=== PATIENT | female | born 1945 | race Caucasian/White ===

== ENCOUNTER 2018-06-11 08:48 | Inpatient (IN) ==
--- NOTE | 2018-06-11 09:20 | PROVIDER DOCUMENTATION ---
HPI-Respiratory General - General Chief Complaint: Shortness of Breath Stated Complaint: sob Time Seen by Provider: 06/11/18 09:05 Source: patient, family Allergies/Adverse Reactions: Patient Allergies Allergy/AdvReac Type Severity Reaction Status Date / Time cefazolin Allergy Intermediate RASH Verified 10/22/17 12:07 metoclopramide HCl * Allergy Intermediate RASH Verified 10/22/17 12:07 [From Reglan] streptomycin [Streptomycin] Allergy Intermediate RASH Verified 10/22/17 12:07 Sulfa (Sulfonamide Allergy Intermediate RASH Verified 10/22/17 12:07 Antibiotics) tetracycline [Tetracycline] Allergy Intermediate RASH Verified 10/22/17 12:07 Home Medications: Home Medication List Medication Instructions Recorded Confirmed Last Taken Type Omeprazole 20 mg PO HS 05/13/13 06/11/18 10/21/17 History Gabapentin 300 mg PO TID 02/10/17 06/11/18 10/22/17 History Losartan [Cozaar] 50 mg PO QHS 02/10/17 06/11/18 10/21/17 History Warfarin [Coumadin] 5 mg PO QHS 02/10/17 06/11/18 10/21/17 History Duloxetine [Cymbalta] 60 mg PO DAILY 03/07/17 06/11/18 10/22/17 History Levothyroxine [Synthroid] 50 microgm PO DAILY 06/21/17 06/11/18 10/22/17 History Vitamin B Complex Vit C No.4 150 mg PO DAILY 06/21/17 06/11/18 10/22/17 History [Super B Complex] Calcium Carbonate/Vitamin D3 1 tab PO DAILY 06/28/17 06/11/18 10/22/17 History [Calcium 600-Vit D3 800 Tablet] Metolazone 2.5 mg PO DIRECTED 06/28/17 06/11/18 10/19/17 History Potassium Chloride [Klor-Con M20] 20 meq PO TID 06/28/17 06/11/18 10/22/17 History B-Complex with Vitamin C [Super B 1 tab PO DAILY 06/30/17 11/13/17 10/22/17 History Complex-Vitamin C] Baclofen [Lioresal] 10 mg PO Q12H PRN PRN tablet 06/30/17 06/11/18 10/22/17 Rx Furosemide 80 mg PO BID 06/30/17 06/11/18 10/22/17 History Isosorbide Mononitrate E.r. [Imdur] 30 mg PO BID #60 tab 06/30/17 06/11/18 10/22/17 Rx Hydrocodone/Acetaminophen 1 tab PO Q6H 06/11/18 06/11/18 Unknown History [Hydrocodone-Acetamin 10-325 mg] Metoprolol Succinate 25 mg PO DAILY 06/11/18 06/11/18 Unknown History Prednisone 5 mg PO DAILY 06/11/18 06/11/18 Unknown History Trazodone [Desyrel] 150 mg PO QHS 06/11/18 06/11/18 Unknown History - History of Present Illness-Resp Quality of Pain: reports: cramping Severity in ED: reports: severe Onset/Duration: reports: 4-6 hours ago Timing: reports: still present Context: denies: recent foreign travel, insect bite (possible tick), recent chemotherapy, multiple patients with similar complaints, recent URI, out of meds, sports/exercise, aspiration/choking, other Exposure: denies: unknown cause, allergen exposure, enviromental allergen exposure, common food allergen exposure, illness exposure, irritant gases exposure, new medication, mold exposure, smoke exposure, toxic exposure, other Cough Quality/Degree: reports: moderate, productive cough, sputum, blood streaked sputum Episode Frequency: no prior episodes Current Respiratory Medication Therapy: Initiated other (home oxygen) Modifying Factors: improves with: nothing Associated Symptoms: reports: cough Similar Symptoms Previously?: No Recently seen or treated by another doctor?: Yes (recent INR, NA 119) Review of Systems - Adult - REVIEW OF SYSTEMS - ADULT Constitutional: reports: see HPI. denies: no symptoms reported, chills, fever, fatique, night sweats, weight gain, weight loss, other Eyes: reports: no symptoms reported Ears, Nose, Mouth & Throat: reports: no symptoms reported Cardiovascular: reports: no symptoms reported Respiratory: reports: cough, hemoptysis, shortness of breath Gastrointestinal: reports: no symptoms reported Genitourinary: reports: no symptoms reported Musculoskeletal: reports: no symptoms reported, other (cramping) Integumentary: reports: no symptoms reported Neurological: reports: no symptoms reported Psychiatric: reports: no symptoms reported Endocrine: reports: no symptoms reported Hematologic/Lymphatic: reports: no symptoms reported Allergic/Immunologic: reports: no symptoms reported Past History - Adult - PAST MEDICAL HISTORY-ADULT Review of Records: reports: Nursing Assessment Review Major Childhood Illnesses: reports: denies history Cardiovascular: reports: HTN, heart valve problem, [place] Respiratory: reports: denies history Gastrointestinal: reports: denies history Obstetrical/Gynecological: reports: denies history Genitourinary: reports: denies history Musculoskeletal: reports: chronic pain Neurological: reports: denies history Psychiatric: reports: denies history Endocrine/Immune: reports: thyroid disorder Other Conditions: reports: denies history - PRIOR SURGERIES/PROCEDURES Surgical/Procedure History: reports: CABG, other - IMMUNIZATION STATUS Childhood Immunizations: See Nurse Assessment Flu Vaccine: See Nurse Assessment - FAMILY HISTORY Family History: reviewed, not pertinent Physical Exam-General - PHYSICAL EXAM-ADULT Initial Vital Signs Reviewed: Yes - CONSTITUTIONAL General Appearance: no apparent distress - EYES Eyes: PERRL/EOMI, pink conjunctivae - HEAD, EARS, NOSE, MOUTH & THROAT HENMT: normocephalic/atraumatic, moist mucous membranes - NECK Neck: non-tender - RESPIRATORY Respiratory: crackles, increased rate - CARDIOVASCULAR Cardiovascular: normal peripheral pulses, no edema - GASTROINTESTINAL (ABDOMEN) Abdominal Exam: normal bowel sounds, non tender - LYMPHATIC Lymphatic: no adenopathy - MUSCULOSKELETAL Back Exam: normal inspection Extremity: other (cramping BLE) - SKIN Integumentary: normal color, normal turgor - NEUROLOGIC Neurologic: grossly normal - PSYCHIATRIC Psych/Mental Status: normal mood/affect, normal thought content, normal thought process, oriented x 3 Progress - PLAN OF CARE/RESULTS Progress/Plan/Lab Results: Vital Signs - 8 hr 06/11/18 08:55 06/11/18 09:00 06/11/18 09:50 Temperature 98.6 F Pulse Rate 117 H 116 H 102 H Respiratory Rate 41 H 30 H 20 Blood Pressure 130/67 130/67 O2 Sat by Pulse Oximetry 97 97 98 06/11/18 10:43 06/11/18 11:01 06/11/18 11:21 Temperature Pulse Rate 101 H 97 H 107 H Respiratory Rate 29 H 15 37 H Blood Pressure 141/72 140/65 143/66 O2 Sat by Pulse Oximetry 99 99 98 06/11/18 11:32 Temperature Pulse Rate 107 H Respiratory Rate 15 Blood Pressure 123/78 O2 Sat by Pulse Oximetry 98 Laboratory Results - last 24 hr 06/11/18 06/11/18 06/11/18 09:15 09:28 09:28 WBC 21.95 H RBC 4.43 Hgb 12.2 Hct 37.6 MCV 84.9 MCH 27.5 MCHC 32.4 L RDW Std Deviation 14.9 H Plt Count 330 MPV 8.8 Immature Gran % (Auto) 0.4 Neut % (Auto) 94.2 H Lymph % (Auto) 1.5 L [place] % (Auto) 3.8 Eos % (Auto) 0.0 Baso % (Auto) 0.1 Immature Gran # (Auto) 0.08 H Neut # (Auto) 20.67 H Lymph # (Auto) 0.34 L [place] # (Auto) 0.84 H Eos # (Auto) 0.00 Baso # (Auto) 0.02 PT INR PTT (Actin FS) Sodium 132 L Potassium 3.7 Chloride 86 L Carbon Dioxide 31 Anion Gap 15 BUN 10 Creatinine 0.7 Estimated GFR/1.73 m2 > 60 BUN/Creatinine Ratio 14 Glucose 113 H Calculated Osmolality 264 Calcium 9.6 Total Bilirubin 0.51 AST 61 H ALT 61 H Alkaline Phosphatase 94 Troponin T Wsd-B-Qgrkevgcwer Pept Total Protein 7.3 Albumin 4.6 Globulin 2.7 Albumin/Globulin Ratio 1.7 Plasma Lactate Urine Source CLEAN CATCH Urine Color STRAW Urine Turbidity CLEAR Urine pH 7.0 Ur Specific [place] 1.000 Urine Protein NEGATIVE Ur Glucose (Stick) NEGATIVE Ur Ketones (Stick) NEGATIVE Urine Blood NEGATIVE Urine Nitrite NEGATIVE Urine Bilirubin NEGATIVE Urobilinogen Dipstick NORMAL Urine Leukocytes NEGATIVE Urine WBC (Auto) <10 Urine RBC (Auto) <10 U Epithel Cells (Auto) <10 Urine Bacteria (Auto) 4+ 06/11/18 06/11/18 06/11/18 09:28 09:28 09:28 WBC RBC Hgb Hct MCV MCH MCHC RDW Std Deviation Plt Count MPV Immature Gran % (Auto) Neut % (Auto) Lymph % (Auto) [place] % (Auto) Eos % (Auto) Baso % (Auto) Immature Gran # (Auto) Neut # (Auto) Lymph # (Auto) [place] # (Auto) Eos # (Auto) Baso # (Auto) PT 26.9 H INR 2.29 PTT (Actin FS) 44.5 H Sodium Potassium Chloride Carbon Dioxide Anion Gap BUN Creatinine Estimated GFR/1.73 m2 BUN/Creatinine Ratio Glucose Calculated Osmolality Calcium Total Bilirubin AST ALT Alkaline Phosphatase Troponin T 0.030 Jrw-F-Fnawfgrcsym Pept 1565 H Total Protein Albumin Globulin Albumin/Globulin Ratio Plasma Lactate Urine Source Urine Color Urine Turbidity Urine pH Ur Specific [place] Urine Protein Ur Glucose (Stick) Ur Ketones (Stick) Urine Blood Urine Nitrite Urine Bilirubin Urobilinogen Dipstick Urine Leukocytes Urine WBC (Auto) Urine RBC (Auto) U Epithel Cells (Auto) Urine Bacteria (Auto) 06/11/18 09:28 WBC RBC Hgb Hct MCV MCH MCHC RDW Std Deviation Plt Count MPV Immature Gran % (Auto) Neut % (Auto) Lymph % (Auto) [place] % (Auto) Eos % (Auto) Baso % (Auto) Immature Gran # (Auto) Neut # (Auto) Lymph # (Auto) [place] # (Auto) Eos # (Auto) Baso # (Auto) PT INR PTT (Actin FS) Sodium Potassium Chloride Carbon Dioxide Anion Gap BUN Creatinine Estimated GFR/1.73 m2 BUN/Creatinine Ratio Glucose Calculated Osmolality Calcium Total Bilirubin AST ALT Alkaline Phosphatase Troponin T Fsg-F-Ntkziemgykw Pept Total Protein Albumin Globulin Albumin/Globulin Ratio Plasma Lactate 2.8 H Urine Source Urine Color Urine Turbidity Urine pH Ur Specific [place] Urine Protein Ur Glucose (Stick) Ur Ketones (Stick) Urine Blood Urine Nitrite Urine Bilirubin Urobilinogen Dipstick Urine Leukocytes Urine WBC (Auto) Urine RBC (Auto) U Epithel Cells (Auto) Urine Bacteria (Auto) Orders Category Date Time Status Admit - [facility] Routine AdmDCTranf 06/11/18 12:02 Active Activity - Up with Assistance ORDERED Care 06/11/18 12:02 Active Daily Weights 0500 Care 06/11/18 12:02 Active Elevate Head of Bed DIRECTED Care 06/11/18 12:02 Active Intake and Output-Strict Q 8-HR ASSESS Care 06/11/18 12:02 Active Nursing- Assist w/ IS as order ORDERED Care 06/11/18 12:02 Active Saline Loc NOW Care 06/11/18 09:22 Active Turn, Cough and Deep Breathe Q2HR Care 06/11/18 12:02 Active Vital Signs Order Q 4-HR ASSESS Care 06/11/18 11:55 Active Heart Healthy Diet Diet 06/11/18 12:02 Active CHEST-1 VIEW [RAD] Stat Exams 06/11/18 09:03 Completed CHEST-PORTABLE [RAD] Routine Exams 06/12/18 06:00 Ordered BLOOD CULTURE [BLDCUL] Stat Lab 06/11/18 10:40 Results BNP [PRO B-NATRIURETIC PEPTIDE] Stat Lab 06/11/18 09:28 Completed CBC WITH ELECTRONIC DIFF [HEME] Stat Lab 06/11/18 09:28 Completed COMPREHENSIVE METABOLIC PANEL [CHEM] Routine Lab 06/12/18 06:00 Ordered COMPREHENSIVE METABOLIC PANEL [CHEM] Stat Lab 06/11/18 09:28 Completed FREE T4 Routine Lab 06/12/18 06:00 Ordered LACTATE, PLASMA [CHEM] Routine Lab 06/11/18 16:00 Ordered LACTATE, PLASMA [CHEM] Stat Lab 06/11/18 09:28 Completed PROTIME WITH INR [COAG] Stat Lab 06/11/18 09:28 Completed PTT [COAG] Stat Lab 06/11/18 09:28 Completed SPUTUM CULTURE WITH GRAM STAIN [RM] Routine Lab 06/11/18 12:09 Results TROPONIN T Q8H Lab 06/11/18 14:16 Completed TROPONIN T Q8H Lab 06/11/18 19:55 Ordered TROPONIN T Stat Lab 06/11/18 09:28 Completed TSH Routine Lab 06/12/18 06:00 Ordered VITAMIN B12 Routine Lab 06/12/18 06:00 Ordered Furosemide [Lasix] Med 06/11/18 10:44 Discontinued 40 mg IV NOW ONE Levofloxacin 750 mg/D5w [Levaquin 750 mg/D5w] Med 06/11/18 10:12 Discontinued 750 mg in 150 ml IV NOW Pharmacy Order [Vancomycin IV Per Pharmacy] Med 06/11/18 11:55 Active 1 each MISC DIRECTED Piperacillin/Tazobactam [Zosyn] 3.375 gm Med 06/11/18 18:00 Active 0.9% Sodium Chloride Inj [Ns] 50 ml IV Q6H Incentive Spirometer Routine Oth 06/11/18 12:02 Active Oxygen Device Routine Oth 06/11/18 12:02 Active Pulse Oximetry Routine Oth 06/11/18 12:02 Active EKG [EKG] Stat Ther 06/11/18 09:35 Draft Echo Spec/Color Dop W/O Contra Routine Ther 06/11/18 11:20 Draft Transfer/Admit Order [TRANSFER] Routine Transfer 06/11/18 11:02 Completed Result Diagrams: 06/11/18 09:28 06/11/18 09:28 - REASSESSMENT Reassessment #1 Time Reassessed: 10:14 Status: improving Reassessment Comment: discussed admission with patient, PCP does not admit, will d/w hospitalist Reassessment #2 Time Reassessed: 10:34 (Hospitalist Paged) Reassessment #3 Time Reassessed: 10:48 Reassessment Comment: Spoke with Daniela [employer] with hospitalist, admit for PNA - XRAY 1 XRAY Study: Chest Impression: Abnormal XRAY Interpretation: Right lung infiltrates. Departure - Departure Date of Disposition Decision: 06/11/18 Time of Disposition Decision: 10:34 DIAGNOSIS: Pneumonia, Weakness, Hyponatremia Disposition: ADMITTED INPATIENT 09 Certified Medical Emergency: Emergent Condition: Fair - Critical Care Note This patient required my direct & personal management of CC.: No Attestation - Physician/ BROOK[place]NN Attestation The physician spent face to face time with patient:: No Advanced Practice Provider documentation review:: Supervising physician onsite a nd consulted in the evaluation and care of this patient. The physician did not have a face to face encounter with the patient.
--- NOTE | 2018-06-11 09:37 | EKG Report ---
Test Performed on : 06/11/2018 08:53:08 AM Test Reason : SOB Blood Pressure : / mmHG Vent. Rate : 113 BPM Atrial Rate : 113 BPM P-R Int : 164 ms QRS Dur : 112 ms QT Int : 344 ms P-R-T Axes : 046 029 116 degrees QTc Int : [address] & T wave abnormality, consider inferolateral ischemia Abnormal ECG When compared with ECG of 13-NOV-2017 19:41, Vent. rate has increased BY 47 BPM QRS duration has decreased T wave inversion more evident in Lateral leads Unconfirmed Result
--- NOTE | 2018-06-11 09:43 | Diag Imaging Result Doc PS360 ---
EXAM: CHEST-1 VIEW HISTORY: SOB TECHNIQUE: Chest single view COMPARISON: 11/16/2017 FINDINGS: The lungs are well expanded. There are dense infiltrates in the mid and lower right lung on the current exam. The patient is rotated to the right. Sternal wires are present. There is a small left pleural effusion. IMPRESSION: Right lung infiltrates. Electronically signed by Shahid Robertson 06/11/2018 9:40 AM
[2018-06-11 10:06] LABS: BASO# 0.02 X1000 (0.0-0.2); BASO% 0.1 % (0.0-0.8); HEMATOCRIT 37.6 % (37.0-47.0); HEMOGLOBIN 12.2 g/dL (12.0-16.0); IMM GRAN# 0.08 X1000 (0.0-0.04); IMM GRAN% 0.4 % (0.0-0.5); LYMPH# 0.34 X1000 (1.2-3.4); LYMPH% 1.5 % (20.5-51.1); MCH 27.5 PG (27-31); MCHC 32.4 g/dL (33-37); MCV 84.9 FL (81-99); MONO# 0.84 X1000 (0.11-0.59); MONO% 3.8 % (1.7-9.3); MPV 8.8 FL (7.4-10.4); NEUT# 20.67 X1000 (1.4-6.5); NEUT% 94.2 % (42.2-75.2); PLT 330 X1000 (130-400); RBC 4.43 XMIL (4.2-5.4); RDW 14.9 % (11.5-14.5); WBC 21.95 X1000 (4.8-10.8)
[2018-06-11 10:09] LABS: INR 2.29; PROTIME 26.9 Seconds (11.0-16.0)
[2018-06-11 10:10] LABS: PTT 44.5 Seconds (22.3-41.8)
[2018-06-11] MEDS ORDERED: LEVAQUIN 750 MG/D5W 750 MG/150 ML IVPB IV ONE (10:12)
[2018-06-11 10:24] LABS: ESTIMATED GFR > 60
[2018-06-11 10:25] LABS: AGAP 15; ALB/GLOB RATIO 1.7; ALBUMIN 4.6 g/dL (3.5-5.0); ALKALINE PHOSPHATASE 94 U/L (32-104); BUN 10 mg/dL (8-22); CALCIUM 9.6 mg/dL (8.8-10.2); CHLORIDE 86 mmol/L (98-107); COSMO 264; CREATININE 0.7 mg/dL (0.5-0.9); GLUCOSE 113 mg/dL (70-104); GOT 61 U/L (10-30); GPT 61 U/L (10-36); POTASSIUM 3.7 mmol/L (3.5-5.1); SODIUM 132 mmol/L (136-145); TCO2 31 mmol/L (25-35); TOTAL BILIRUBIN 0.51 mg/dL (0.20-1.00); TOTAL PROTEIN 7.3 g/dL (6.3-8.3)
[2018-06-11] MEDS ORDERED: LASIX IV ONE (10:44)
[2018-06-11] MEDS ORDERED: ZOFRAN IV PRN (11:55)
[2018-06-11] MEDS ORDERED: VANCOMYCIN IV PER PHARMACY MISC SCH (11:55)
[2018-06-11] MEDS ORDERED: NS 1,000 ML IV ONE (11:55)
[2018-06-11] MEDS ORDERED: SODIUM CHLORIDE 0.9% INJ SCH (12:02)
[2018-06-11 12:26] LABS: URINE SOURCE CLEAN CATCH
[2018-06-11 12:34] LABS: BILIRUBIN URINE NEGATIVE (NEGATIVE); BLOOD URINE NEGATIVE (NEGATIVE); COLOR STRAW; GLUCOSE URINE NEGATIVE (NEGATIVE); KETONE URINE NEGATIVE (NEGATIVE); LEUKOCYTES URINE NEGATIVE (NEGATIVE); NITRITE URINE NEGATIVE (NEGATIVE); PROTEIN URINE NEGATIVE (NEGATIVE); TURBIDITY URINE CLEAR (CLEAR); UR EPITHELIAL CELLS <10 /HPF (<10); URINE BACTERIA 4+ /HPF; URINE RBC <10 /HPF (<10); URINE WBC <10 /HPF (<10); UROBILINOGEN URINE NORMAL (NORMAL)
[2018-06-11] MEDS ORDERED: VANCOMYCIN 1,300 MG in NS 250 ML IV ONE (13:00)
--- NOTE | 2018-06-11 13:01 | HISTORY AND PHYSICAL ---
PATIENT'S PRIMARY CARE PHYSICIAN: Jose Amaya MD CHIEF COMPLAINT: Shortness of breath and cough with pink frothy sputum. HISTORY OF PRESENT ILLNESS: Ms. Mosley is a 72-year-old female with a past medical history of coronary artery disease with bypass graft, aortic and mitral valve replacements, hypertension, diastolic heart failure secondary to valvular abnormalities, and history of paroxysmal atrial fibrillation on Coumadin, who presented to the emergency room today with complaints of a new cough. She states that this morning she woke up and was coughing excessively and started coughing some pink frothy sputum as well as shortness of breath associated with this cough. She denied any fever and she denied previous illness. She has complained of some mild chest pain associated with this coughing episode that started this morning. She denies any abdominal pain, constipation, or diarrhea. She denies melena or hematochezia. She was brought in by ambulance to the [facility] ER this morning. While in the emergency room, a chest x-ray revealed right lung infiltrates. Her EKG was sinus rhythm. She had an elevated WBC at 21.95, hemoglobin and hematocrit are normal, and her lactate is elevated at 2.8. She also has an elevated proBNP 1565. She denies any recent weight gain or swelling of the extremities. She does complain of some paroxysmal nocturnal dyspnea that just started last night. She will be admitted for further workup and evaluation regarding right-sided pneumonia,likely aspiration, and diastolic congestive heart failure. PAST MEDICAL HISTORY: 1. Paroxysmal atrial fibrillation, on chronic anticoagulation with Coumadin. 2. Coronary artery disease status post coronary artery bypass graft. 3. History of aortic and mitral valve replacements in 1998. 4. Hypertension. 5. Chronic hypokalemia and hyponatremia. 6. History of pulmonary hypertension. 7. History of diastolic heart failure. 8. History of small-bowel obstruction. 9. History of GI bleed in June 2013. 10. Hypothyroidism. PAST SURGICAL HISTORY: 1. CABG with mitral and aortic valve replacement. 2. Hysterectomy. 3. Cholecystectomy. 4. Breast reconstruction. SOCIAL HISTORY: Ms. Mosley lives at home with her . She does her ADLs independently. She denies any alcohol, tobacco, or drug use. She quit smoking in 1974. FAMILY HISTORY: No significant family history to report. ALLERGIES: Cefazolin, Reglan, streptomycin, sulfa, tetracycline. HOME MEDICATIONS: 1. Lasix 80 mg p.o. b.i.d. 2. Omeprazole 20 mg p.o. at bedtime. 3. Prednisone 5 mg p.o. daily. 4. Baclofen 10 mg p.o. q.12 h. p.r.n. muscle spasms. 5. Cymbalta 60 mg p.o. daily. 6. Gabapentin 300 mg p.o. t.i.d. 7. Montara 325 one tablet p.o. q.6 h. p.r.n. pain. 8. Imdur 30 mg p.o. b.i.d. 9. Synthroid 50 mcg p.o. daily. 10. Cozaar 50 mg p.o. at bedtime. 11. Potassium chloride 20 mEq p.o. t.i.d. 12. Trazodone 150 mg p.o. at bedtime. 13. Coumadin 5 mg p.o. at bedtime. Other medications are still waiting to be reconciled. PHYSICAL EXAMINATION: VITAL SIGNS: Temperature 98.6 degrees, heart rate 116, respiratory rate 30, blood pressure 130/67, O2 saturation 97% 2 L nasal cannula. GENERAL: This is a chronically ill-appearing 72-year-old female. She is in no acute distress. She is answering questions appropriately. NEUROLOGICAL: She is alert and oriented without focal deficits. Strength is equal bilaterally. HEENT: Her head is atraumatic and normocephalic. Pupils are equal, round, reactive to light. Oral mucosa is mildly dry. NECK: Her trachea is midline. There is no JVD. CHEST: Her lung sounds with some crackles at the bases. Respirations are nonlabored. She is on 2 L of nasal cannula O2. CARDIOVASCULAR: Her rate and rhythm are regular. S1 and S2 are noted. GASTROINTESTINAL: Her abdomen is soft and nontender. Bowel sounds are positive. EXTREMITIES: There is no edema. Capillary refill is brisk. Pedal pulses are 2+. SKIN: Warm, dry, and intact. DIAGNOSTIC STUDIES: WBC 21, hemoglobin 12.2, hematocrit 37.6, platelets 330,000. PT 29.6, INR 2.29, PTT 44.5. Sodium 132, potassium 3.7, BUN 10, creatinine 0.7, AST 61, ALT 61, alkaline phosphatase 94. Troponin 0.03. ProBNP 1565. Plasma lactate 2.8. Chest x-ray: Impression: Right lung infiltrates and small left pleural effusion. EKG: Sinus tachycardia, ST and T-wave abnormality. ASSESSMENT AND PLAN: 1. Right-sided pneumonia revealed on x-ray with sepsis criteria,likely aspiration. Her white count is 21, and her lactate is 2.8. She is also tachypneic and tachycardic. We will proceed with standard sepsis treatment, including broad-spectrum antibiotics, IV fluids 30 mL/kg. Blood cultures have already been obtained, and urine culture has been ordered. We will repeat a chest x-ray in the morning. We will provide supportive oxygen therapy. She is not requiring further oxygen more than baseline. She has received 1 dose of Levaquin in the ER. We will provide further coverage with vancomycin and Zosyn. She does have allergy to cefazolin and streptomycin. We have also ordered sputum cultures. She will be admitted to PSYCHIATRIC for close observation. 2. Leukocytosis. See #1. 3. Diastolic congestive heart failure. We have ordered an echocardiogram to further evaluate her heart status. She does have an elevated proBNP. Her congestive heart failure is secondary to valvular abnormalitie with previous aortic and mitral valve replacements. She does not appear volume overloaded currently. She received a dose of Lasix in the ER. We will closely observe her to determine need for IV fluids for sepsis versus Lasix regarding CHF. We will continue to trend her troponins. First set is negative. 4. Chronic hyponatremia and hypokalemia. Her sodium is actually doing quite well at 132, and her potassium is normal at 3.7. We will continue to trend her labs and watch her electrolytes closely. 5. Transaminitis. Her AST and ALT are a bit elevated at 61. We may do an abdominal ultrasound to further investigate this. This could be secondary to congestive liver. 6. History of mechanical aortic valve replacement and mitral valve replacement. Aware. 7. Paroxysmal atrial fibrillation. She is in sinus rhythm currently, and she is on chronic anticoagulation with Coumadin which we will continue. Her INR is 2.29. 8. History of coronary artery disease with coronary artery bypass graft. She is not complaining of chest pain, and we are trending her troponins. Her first troponin is negative. She sees Dr. Watt with Cardiology regularly. 9. Hypertension. We will continue her home medication. She is not hypertensive. 10. History of pulmonary hypertension. We are getting an another echocardiogram today. 11. Deep venous thrombosis prophylaxis. Coumadin. 12. Gastrointestinal prophylaxis. Protonix. Dictated by HYACINTH Lopes for Ron Lynn MD cc: Ron Lynn MD I agree with most components of history, physical, assessment and plan. A separate addendum has been dictated. SOFIA
[2018-06-11] MEDS: NEURONTIN PO SCH ×2 (13:43→17:40)
[2018-06-11] MEDS: NORCO-10 PO SCH ×3 (13:43→23:48)
[2018-06-11] MEDS: KLOR-CON PO SCH ×2 (13:43→17:41)
[2018-06-11] MEDS: PROTONIX IV SCH (13:44)
--- NOTE | 2018-06-11 15:03 | ECHO REPORT ---
ORDER DATE: 06/11/2018 INTERPRETING PHYSICIAN: Geraldo Watt MD ECHOCARDIOGRAPHIC MEASUREMENTS: 1. Interventricular septum 1.0 cm. 2. Left ventricular posterior wall 1.0 cm. 3. Diastolic diameter 4.4 cm. 4. Left atrium 3.9 cm. 5. Aorta 3.2 cm. SUMMARY OF THE 2-DIMENSIONAL IMAGIN. Technically suboptimal study. 2. Normal left ventricular cavity size. 3. Estimated ejection fraction of 55% to 60%. 4. There is diastolic dysfunction. 5. Pulmonic valve was normal. 6. Tricuspid valve was normal. 7. Mechanical prosthetic valve in the mitral position was stable. 8. Bioprosthetic aortic valve was stable. 9. Doppler studies revealed peak inflow velocity across the mitral valve of 1.7 m/sec with a mean gradient of 4.9 mmHg, pressure half time of 47 msec in keeping with mechanical prosthetic valve associated with mild mitral regurgitation. 10. Peak velocity across the aortic valve was 3.6 m/sec with a peak gradient of 50 mmHg mean gradient of 47 mmHg. Compared to previous echocardiogram, similar flow velocities were obtained across the aortic valve. 11. There is mild aortic regurgitation. 12. Mild tricuspid regurgitation. 13. Peak velocity across the tricuspid valve was less than 2 m/sec. 14. There is no pericardial effusion or obvious intracardiac mass or thrombus seen. cc: MD Ron Cardenas MD
--- NOTE | 2018-06-11 15:34 | HISTORY AND PHYSICAL ---
ADDENDUM - HISTORY AND PHYSICAL EXAM: Addendum to History and Physical dictated by nurse practitioner. I agree with most components of History and Physical. In brief, Ms. Mosley is a 72-year-old lady with history of heart failure with preserved ejection fraction, pulmonary hypertension, paroxysmal atrial fibrillation, chronic hypoxic respiratory failure on home 2 to 3 L nasal cannula oxygen, essential hypertension, chronic pain, coronary artery disease status post CABG 20 years ago with mechanical aortic and mitral valve on chronic Coumadin therapy comes in with complaints of sudden onset shortness of breath, pneumonia, and cough with hemoptysis. On arrival, she was found to have a tachycardia with elevated WBC count and chest x-ray suspicious for right lower lobe infiltrate, and she is being admitted for suspected sepsis because of pneumonia. On my evaluation, she states she is feeling a lot better than she did in the morning time. However, she continues to have hemoptysis. Her INR is 2.2. I discussed with the patient and her at bedside about her critical condition and need for close monitoring of her respiratory status and answered all of her questions. The patient states that she has been always feeling cold because of her Raynaud's and has not noticed any fevers or chills, specifically. VITAL SIGNS: Currently, vitals suggest temperature of 98.6, pulse of 101, respiratory rate 17, blood pressure 95/77. Saturating 99% on 4 L nasal cannula. PHYSICAL EXAMINATION: GENERAL: She is sitting on the potty chair, not in any acute distress. HEENT: Oral cavity is moist. CARDIOVASCULAR: S1-S2 mechanical. Tachycardic. No murmur, rub or gallop. LUNGS: Air entry decreased, significant decrease in right infrascapular region with inspiratory crackles. No wheeze or rhonchi. ABDOMEN: Soft, nontender. EXTREMITIES: Bilateral lower extremity edema. LABS: Suggestive of leukocytosis. Normal hemoglobin, hematocrit and platelet count. INR of 2.2. Hyponatremia, hypochloremia, normal kidney function, elevated proBNP. Microbiology, urine cultures, sputum culture and blood culture has been in the lab. IMAGING: Chest x-ray has been suggesting right lung infiltrate. ASSESSMENT AND PLAN: 1. Sepsis and acute on chronic hypoxic respiratory failure due to right lower lobe pneumonia. 2. Suspected acute alveolar hemorrhage in the setting of Coumadin use. 3. Mild acute exacerbation of heart failure with preserved ejection fraction. 4. Coagulopathy in the setting of Coumadin use because of mechanical heart valves with her goal INR of 2.5 as per history. 5. Chronic hyponatremia. 6. Paroxysmal atrial fibrillation. 7. Coronary artery disease status post CABG. 8. Essential hypertension with pulmonary hypertension. PLAN: I will start patient on intravenous antibiotics. Follow up with CT scan thorax with contrast to evaluate for alveolar hemorrhage. Will consult Pulmonology. She is status post intravenous Lasix and I will continue her home p.o. Lasix. I will continue to monitor the patient in [facility] and will follow up with culture data. Plan of care discussed with the patient and her at bedside. All of their questions have been answered. cc: Ron Lynn MD
--- NOTE | 2018-06-11 16:33 | Diag Imaging Result Doc PS360 ---
EXAM: CT THORAX W/CONTRAST 06/11/2018 HISTORY: Evaluate for pulmonary hemorrhage TECHNIQUE: This exam was performed using automated exposure control, adjustment of mA or kV according to patient size, and/or use of iterative reconstruction technique. COMMENT: There are no apparent pulmonary arterial filling defects. There is a mitral valve prosthesis. The aorta is not distended. There are coronary calcifications and there has been previous sternotomy. There are patchy alveolar opacities present in both lungs but particularly in the right lower lobe and right upper lobe. The possibility of pulmonary hemorrhage cannot be excluded but the appearance is more suggestive of bronchopneumonia. This was not present at the time the previous study of 10/10/2017. The pleural effusion which was present at the time the previous study on the left has almost completely resolved. Right paratracheal nodes which were present previously are essentially stable. There are also aorticopulmonary window nodes which are slightly smaller than they were previously. There are epidural catheter is present in the upper thoracic spine. There is some sclerosis in the medial right clavicle which has not changed since the previous exam. IMPRESSION: Improved left pleural effusion. New alveolar opacities particularly in the right lung as described. Electronically signed by Khari Strauss 06/11/2018 4:31 PM
[2018-06-11] MEDS: ZOSYN 3.375 GM in NS 50 ML IV SCH ×2 (17:40→23:49)
[2018-06-11] MEDS: LIORESAL PO PRN (17:44)
[2018-06-11] MEDS: LASIX PO SCH (20:27)
[2018-06-11] MEDS: DESYREL PO SCH (20:27)
[2018-06-11] MEDS ORDERED: COZAAR PO SCH (21:00)
[2018-06-11] MEDS ORDERED: IMDUR PO SCH (21:00)
[2018-06-11] MEDS ORDERED: COUMADIN PO SCH (21:00)
--- NOTE | 2018-06-11 21:50 | PULMONOLOGY CONSULTATION ---
DATE: 06/11/2018 REQUESTING PHYSICIAN: Dr. Lynn. REASON FOR CONSULTATION: Pulmonary hemorrhage and pneumonia. HISTORY OF PRESENT ILLNESS: Ms. Mosley is a 72-year-old white female with remote history of tobacco use, history of aortic and mitral valve replacement on chronic anticoagulation, who reports she was doing well [place]. She did stay at [employer] late and ate around 8:30 last evening. She awoke at 2 o'clock in the morning with cough and shortness of breath. Her cough persisted and she did have an episode of dry heaves in the morning. One cough was associated with approximately tablespoon of blood. This occurred after a prolonged coughing episode. She has not seen additional episodes of blood. She reports she is significantly improved. She reports her temperature was elevated this morning into the 98 range and she typically runs 97. She is without complaints now. PAST MEDICAL HISTORY: 1. Chronic atrial fibrillation. 2. Status post aortic and mitral valve replacements with coronary artery bypass grafting. 3. Neural stimulator present in the cervical spine area on radiography. 4. Pulmonary hypertension. 5. Diastolic dysfunction. 6. History of small bowel obstruction. 7. Hypothyroidism. 8. Status post hysterectomy. 9. Status post cholecystectomy. 10. History of breast reconstruction. SOCIAL HISTORY: The patient reports she has not smoked for the last 45 years. No alcohol use. She has been to her since the age of 14. FAMILY HISTORY: Noncontributory to current presentation. PHYSICAL EXAMINATION: General: Reveals an obese white female with a BMI of 34, resting comfortably after returning from the bathroom. BP 142/53, heart rate 83, respiratory rate 23, oxygen saturation 96% on 3 L per nasal cannula. HEENT: Pupils are equal and reactive. Oropharynx is clear. Neck: Supple. Chest: Reveals crackles in the right lung base. Cardiac: S1, S2. Abdomen: Soft and obese. Extremities: Reveal trace edema. LABORATORIES: CT scan of the thorax reveals a pneumonia which is patchy predominantly in the right lung with minimal if any infiltrates on the left. She has cardiomegaly. White blood count 21.9 thousand, hemoglobin 12.2, platelet count 330,000, sodium 132, potassium 3.7, chloride 86, bicarbonate 31, BUN 10, creatinine 0.7. ProBNP is 1565. IMPRESSION: A 72-year-old with intermittent reflux who ate late in the evening and woke up early in the morning with shortness of breath and coughing. The patient had multiple coughs before an episode of minor hemoptysis. Radiographic findings are most consistent with an aspiration pneumonitis. Diffuse alveolar hemorrhage not likely given the radiographic findings. She has no evidence of infiltrates on the left side. RECOMMENDATIONS: 1. Agree with current antibiotic regimen, which should cover aspiration pneumonia. 2. Agree with daily pro time levels, which may become elevated with antibiotic dosing. 3. Reflux precautions discussed with the patient. She should not eat late in the evening. cc: MD Ron Alba MD
[2018-06-12] MEDS: NORCO-10 PO SCH ×4 (04:59→23:38)
[2018-06-12] MEDS: ZOSYN 3.375 GM in NS 50 ML IV SCH ×3 (04:59→20:07)
[2018-06-12 05:29] LABS: BASO# 0.04 X1000 (0.0-0.2); BASO% 0.2 % (0.0-0.8); EOS# 0.13 X1000 (0.0-0.7); EOS% 0.7 % (0.0-10.0); HEMATOCRIT 39.2 % (37.0-47.0); IMM GRAN# 0.05 X1000 (0.0-0.04); IMM GRAN% 0.3 % (0.0-0.5); LYMPH# 1.36 X1000 (1.2-3.4); LYMPH% 7.4 % (20.5-51.1); MCH 28.1 PG (27-31); MCHC 33.2 g/dL (33-37); MCV 84.8 FL (81-99); MONO% 5.5 % (1.7-9.3); MPV 8.8 FL (7.4-10.4); NEUT# 15.69 X1000 (1.4-6.5); NEUT% 85.9 % (42.2-75.2); PLT 321 X1000 (130-400); RBC 4.62 XMIL (4.2-5.4); WBC 18.27 X1000 (4.8-10.8)
[2018-06-12 05:32] LABS: INR 2.48; PROTIME 28.7 Seconds (11.0-16.0)
[2018-06-12 06:01] LABS: FREE T4 1.78 ng/dL (0.93-1.70); TSH 1.56 uIUmL (0.27-4.20)
[2018-06-12 06:06] LABS: AGAP 3; ALB/GLOB RATIO 1.3; ALBUMIN 4.2 g/dL (3.5-5.0); ALKALINE PHOSPHATASE 82 U/L (32-104); BUN 11 mg/dL (8-22); CALCIUM 9.4 mg/dL (8.8-10.2); CHLORIDE 79 mmol/L (98-107); COSMO 260; CREATININE 0.8 mg/dL (0.5-0.9); ESTIMATED GFR > 60; GLUCOSE 86 mg/dL (70-104); GOT 50 U/L (10-30); GPT 50 U/L (10-36); MAGNESIUM 2.2 mg/dL (1.5-2.7); SODIUM 130 mmol/L (136-145); TCO2 48 mmol/L (25-35); TOTAL BILIRUBIN 0.93 mg/dL (0.20-1.00); TOTAL PROTEIN 7.5 g/dL (6.3-8.3)
[2018-06-12 06:07] LABS: POTASSIUM 2.3 mmol/L (3.5-5.1)
[2018-06-12] MEDS ORDERED: KLOR-CON PO ONE (06:20)
[2018-06-12] MEDS: POTASSIUM CHLORIDE 20 MEQ/SWI 20 MEQ/100 ML IVPB IV SCH ×2 (07:01→12:21)
--- NOTE | 2018-06-12 07:21 | Diag Imaging Result Doc PS360 ---
EXAM: CHEST-PORTABLE 06/12/2018 HISTORY: Pneumonia TECHNIQUE: AP portable at 0601 COMMENT: There is cardiomegaly. There is ill-defined alveolar opacity in the right lower lobe. This appears to have improved slightly since 06/11/2018. There is pleural thickening and subsegmental atelectasis versus fibrosis in the left lung. The heart size remains slightly enlarged. IMPRESSION: Mild cardiomegaly. Pulmonary edema versus pneumonia. Electronically signed by Khari Strauss 06/12/2018 7:19 AM
[2018-06-12] MEDS: CYMBALTA PO SCH (09:14)
[2018-06-12] MEDS: TOPROL XL PO SCH (09:14)
[2018-06-12] MEDS: LASIX PO SCH ×2 (09:15→20:08)
[2018-06-12] MEDS: NEURONTIN PO SCH ×3 (09:15→17:40)
[2018-06-12] MEDS: KLOR-CON PO SCH ×3 (09:15→17:40)
[2018-06-12] MEDS: SYNTHROID PO SCH (09:15)
--- NOTE | 2018-06-12 10:03 | PROGRESS NOTE ---
DATE: 06/12/2018 INTERVAL HISTORY: No acute events overnight. The patient's WBC count is decreasing. She did have elevated bicarbonate and hypokalemia, but she has otherwise been feeling well. No other acute events overnight. SUBJECTIVE: Subjectively, she states she is feeling much better than she did yesterday. She is denying any shortness of breath at rest. She does get a little winded after going to bathroom and coming back. She continues to have cough with sputum production. However, the bright red blood has turned into now dark maroonish blood. She denies any chest pain. VITAL SIGNS: Currently, vitals suggest temperature 97.9 degrees, pulse 93, respiratory rate 18, blood pressure 179/65. She is saturating 95% on 2 L nasal cannula. Input and output: She is - 1.7 L so far today. LABS: Suggestive of improving leukocytosis to 11,000. Normal hemoglobin, hematocrit, and platelet count. INR of 2.4. Potassium of 2.3 hyponatremia, hypochloremia, normal kidney function. MICROBIOLOGY: Blood culture, sputum culture, urine culture in lab. IMAGING: Chest x-ray performed today suggestive of mild pulmonary edema versus pneumonia in the right lower lobe. ASSESSMENT AND PLAN: 1. Sepsis and acute hypoxic respiratory failure due to right lower lobe pneumonia. Continue oxygenation through nasal cannula. Continue intravenous vancomycin and Zosyn, and follow up final blood culture and sputum culture results with the urine streptococcal and Legionella antigen. 2. Suspected acute alveolar hemorrhage in the setting of Coumadin use. However, the CT scan of chest finding did not detect that the patient did have bright red blood in sputum expectoration yesterday, which is turning to maroonish blood. Continue to monitor complete blood count. 3. Mild acute exacerbation of heart failure with preserved ejection fraction, now improving. Continue home Lasix, metoprolol. 4. History of mechanical aortic and mitral valve replacement on chronic Coumadin therapy. Continue to hold Coumadin until her hemoptysis resolves, and accordingly I plan to resume Coumadin maybe later today or tomorrow. Monitor INR frequently. 5. Paroxysmal atrial fibrillation. Continue metoprolol, currently in acceptable range. She is also on Coumadin. 6. Chronic pain. Continue home gabapentin, [place], baclofen, duloxetine, and trazodone for insomnia as well; continue levothyroxine for hypothyroidism. 7. History of coronary artery disease status post coronary artery bypass graft, essential hypertension, pulmonary hypertension are stable. DISPOSITION: I will continue to monitor patient in [facility]. She would ambulate under supervision. Plan of care discussed with the patient and her at bedside. All of their questions have been satisfactorily answered. cc: Ron Lynn MD
[2018-06-12] MEDS: PROTONIX IV SCH (12:20)
[2018-06-12] MEDS: DESYREL PO SCH (20:08)
--- NOTE | 2018-06-12 20:45 | PULMONOLOGY PROGRESS NOTE ---
DATE: 06/12/2018 SUBJECTIVE: The patient is awake, alert, and conversant. She reports "I feel good and want to go home." OBJECTIVE: The patient has been afebrile. Blood pressure 150/50, heart rate 95, respiratory rate 18, oxygen saturation 99% on 3 L per nasal cannula.HEENT: Pupils are equal and reactive. Oropharynx is clear. Neck: Is supple. Chest: Reveals coarse rhonchi bilaterally. Cardiac: S1- S2. Abdomen: Soft without hepatosplenomegaly. Extremities: Reveal trace edema. LABORATORIES: Chest x-ray reveals right basilar infiltrate and cardiomegaly. White blood count 18.27. Microbiology reveals a gram-negative dede in her urine and a gram-negative dede in her sputum. IMPRESSION: A 72-year-old with 1. Gram-negative pneumonia. 2. Hemoptysis related to pneumonia and anticoagulation. 3. Acute hypoxemic respiratory failure. 4. Mild radiographic improvement, which is encouraging. PLAN: 1. Continue bronchial hygiene. 2. Continue antibiotic regimen pending identification of organisms in her urine and sputum. 3. Continue reflux precautions. cc: MD Ron Alba MD
[2018-06-12] MEDS: LIORESAL PO PRN (22:02)
[2018-06-13] MEDS: ZOSYN 3.375 GM in NS 50 ML IV SCH ×2 (01:26→08:11)
[2018-06-13] MEDS: NORCO-10 PO SCH ×3 (05:36→17:47)
[2018-06-13] MEDS: TOPROL XL PO SCH (08:11)
[2018-06-13] MEDS: CYMBALTA PO SCH (08:11)
[2018-06-13] MEDS: KLOR-CON PO SCH ×5 (08:11→21:49)
[2018-06-13] MEDS: NEURONTIN PO SCH ×3 (08:11→21:48)
[2018-06-13] MEDS: LASIX PO SCH ×2 (08:11→17:47)
[2018-06-13] MEDS: SYNTHROID PO SCH (08:11)
[2018-06-13] MEDS: PROTONIX IV SCH (12:15)
[2018-06-13] MEDS ORDERED: POTASSIUM CHLORIDE 20 MEQ/SWI 20 MEQ/100 ML IVPB IV ONE (12:50)
[2018-06-13] MEDS ORDERED: VANCOMYCIN 1,150 MG in NS 250 ML IV SCH (13:00)
--- NOTE | 2018-06-13 13:43 | PROGRESS NOTE ---
DATE: 06/13/2018 INTERVAL HISTORY: No acute event overnight. She has been feeling significantly better. Denies any new complaints. We discussed about sputum culture findings. We also discussed about urine culture finding, which is asymptomatic. She continues to have hemoptysis, which is a little decreasing in amount. She does have old looking blood in the sputum now. VITAL SIGNS: Currently vitals suggest temperature of 98.4 degrees, pulse 91, respiratory rate 19, blood pressure 150/52 saturating 91 to 99 percent on 2.5 L nasal cannula. Input and output is unremarkable. LABS: Continues to have low potassium of 2.8, which is currently being repleted. INR is pending. MICROBIOLOGY: Sputum culture is growing Enterobacter aerogenes, which is sensitive to levofloxacin. IMAGING: No new imaging today. ASSESSMENT AND PLAN: 1. Sepsis and acute hypoxic respiratory failure due to right lower lobe pneumonia. The patient also has history of chronic hypoxic respiratory failure on home 2 to 3 L oxygen through nasal cannula. Change antibiotics to intravenous levofloxacin for Enterobacter as per sputum culture results. She should get up to 10 days of antibiotics considering recurrent pneumonia. Pulmonology on board. Appreciate recommendations. 2. Hemoptysis in the setting of Coumadin use and pneumonia. Follow up with INR and resume Coumadin as tolerated. Currently, her hemoptysis is significantly going down, and based on INR I plan to resume Coumadin later today. Continue to monitor complete blood count tomorrow. 3. Acute exacerbation of heart failure with preserved ejection fraction, improved. Continue home Lasix, metoprolol. 4. History of mechanical aortic and mitral valve replacement on chronic Coumadin therapy. Coumadin plan as mentioned above. 5. Paroxysmal atrial fibrillation. Continue home metoprolol. Currently in acceptable range. 6. Hypokalemia being repleted. Follow up with basic metabolic panel tomorrow. 7. Others: Continue home gabapentin, [place], baclofen, duloxetine, and trazodone for insomnia, chronic pain and anxiety; levothyroxine for hypothyroidism. Her issues of coronary artery bypass graft in the past, essential hypertension, pulmonary hypertension as stable. DISPOSITION: I will transfer patient out of [facility] to routine medical floor. Based on INR, I need to make sure patient is able to tolerate Coumadin without significant hemoptysis and she is hemodynamically stable. Depending on that, I anticipate discharge in the next 24 to 48 hours. Plan of care discussed with the patient. All of her questions have been answered. cc: Ron Lynn MD
[2018-06-13 14:04] LABS: INR 1.48
[2018-06-13] MEDS: LEVAQUIN 750 MG/D5W 750 MG/150 ML IVPB IV SCH (14:07)
[2018-06-13] MEDS ORDERED: COUMADIN PO ONE (14:30)
--- NOTE | 2018-06-13 21:13 | PULMONOLOGY PROGRESS NOTE ---
DATE: 06/13/2018 SUBJECTIVE: The patient is awake, alert and conversant. She reports she feels significantly better. She continues to have a cough, but her sputum/bloody sputum production has significantly decreased. OBJECTIVE: HEENT: Pupils are equal and reactive. Oropharynx is clear. Neck: Supple. Chest: Reveals good air entry bilaterally. Cardiac exam: S1, S2. Abdomen: Soft. Extremities: Without edema. LABORATORIES: Urine culture is growing E coli. Sputum culture is growing Enterobacter aerogenes. IMPRESSION: A 72-year-old with: 1. Gram-negative pneumonia. 2. Hemoptysis due to pneumonia with anticoagulation. 3. Urinary tract infection. 4. Acute hypoxemic respiratory failure. RECOMMENDATIONS: 1. Continue antibiotics. She could probably be covered with Levaquin alone as an oral agent. 2. Continue bronchial hygiene. 3. Wean oxygen as tolerated. 4. Anticipate discharge with improvement in oxygenation. cc: MD Ron Alba MD
[2018-06-13] MEDS: DESYREL PO SCH (21:48)
[2018-06-14] MEDS: NORCO-10 PO SCH ×3 (00:07→14:20)
[2018-06-14] MEDS: LIORESAL PO PRN (00:07)
[2018-06-14 06:52] LABS: BASO# 0.03 X1000 (0.0-0.2); BASO% 0.4 % (0.0-0.8); EOS# 0.15 X1000 (0.0-0.7); HEMATOCRIT 33.8 % (37.0-47.0); HEMOGLOBIN 10.8 g/dL (12.0-16.0); IMM GRAN# 0.03 X1000 (0.0-0.04); IMM GRAN% 0.4 % (0.0-0.5); LYMPH# 0.94 X1000 (1.2-3.4); LYMPH% 12.3 % (20.5-51.1); MCH 27.4 PG (27-31); MCV 85.8 FL (81-99); MONO# 0.76 X1000 (0.11-0.59); MONO% 9.9 % (1.7-9.3); MPV 8.9 FL (7.4-10.4); NEUT# 5.75 X1000 (1.4-6.5); PLT 272 X1000 (130-400); RBC 3.94 XMIL (4.2-5.4); RDW 14.2 % (11.5-14.5); WBC 7.66 X1000 (4.8-10.8)
[2018-06-14 07:00] LABS: INR 1.48; PROTIME 19.1 Seconds (11.0-16.0)
[2018-06-14 07:20] LABS: AGAP 10; BUN 14 mg/dL (8-22); CHLORIDE 89 mmol/L (98-107); COSMO 263; CREATININE 0.6 mg/dL (0.5-0.9); ESTIMATED GFR > 60; GLUCOSE 93 mg/dL (70-104); MAGNESIUM 2.2 mg/dL (1.5-2.7); POTASSIUM 3.5 mmol/L (3.5-5.1); SODIUM 131 mmol/L (136-145); TCO2 32 mmol/L (25-35)
[2018-06-14] MEDS: LASIX PO SCH (08:22)
[2018-06-14] MEDS: KLOR-CON PO SCH ×2 (08:23→14:23)
[2018-06-14] MEDS: SYNTHROID PO SCH (08:23)
[2018-06-14] MEDS: NEURONTIN PO SCH ×2 (08:24→14:23)
[2018-06-14] MEDS: TOPROL XL PO SCH (08:24)
[2018-06-14] MEDS: CYMBALTA PO SCH (08:25)
[2018-06-14] MEDS: LEVAQUIN 750 MG/D5W 750 MG/150 ML IVPB IV SCH (12:12)
[2018-06-14] MEDS: PROTONIX IV SCH (12:13)
[2018-06-14 15:37] VITALS: BP 160/66
[2018-06-14] MEDS ORDERED: COUMADIN PO SCH (21:00)
--- NOTE | 2018-06-15 13:40 | DISCHARGE SUMMARY ---
ADMISSION DATE: 06/11/2018 DISCHARGE DATE: 06/14/2018 DISCHARGE DIAGNOSES: 1. Sepsis secondary to right lower lobe pneumonia. 2. Right lower lobe pneumonia. 3. Acute on chronic hypoxemic respiratory failure. 4. Hemoptysis upon admission. 5. History of mechanical aortic and mitral valve replacement on chronic Coumadin therapy. 6. Paroxysmal atrial fibrillation. 7. Hypokalemia, resolved. 8. Mild acute congestive heart failure exacerbation, diastolic. PROCEDURES PERFORMED: 1. Chest x-ray dated 06/11/2018. Impression: Right lung infiltrate. 2. Echocardiogram dated 06/11/2018. Impression: Ejection fraction 55 to 60 percent. Diastolic dysfunction with bioprosthetic aortic valve and mechanical mitral prosthetic valve stable. 3. Chest CT scan dated 06/11/2018. Impression: Improved left pleural effusion, new alveolar opacity particularly in the right lung as described. 4. Chest x-ray dated 06/12/2018. Impression: Mild cardiomegaly, pulmonary edema versus pneumonia. HOSPITAL COURSE: A 72-year-old female with a past medical history of coronary artery disease with bypass graft, aortic and mitral valve replacement, hypertension, diastolic heart failure secondary to valvular abnormalities, history of paroxysmal atrial fibrillation on Coumadin, who presented to the emergency room and admitted on 06/11/2017 with a chief complaint of cough. Apparently, the day of admission she woke up and she was coughing a lot. She stated that her cough was pink and frothy sputum as well as shortness of breath associated with this cough. She denied any fever. She denied any previous illness. She was complaining also of some chest pain associated with cough that started that morning as well. She denied any abdominal pain, constipation, or diarrhea. No melena or hematochezia. Chest x-ray showed right lung infiltrate, elevated white blood cells, and the lactate level was elevated at 2.8. A ProBNP also elevated at 1565. She denied any recent weight gain or swelling of the extremities. She was complaining of some paroxysmal nocturnal dyspnea that just started the night prior to admission. She was admitted to further workup and evaluated regarding her right-sided pneumonia and diastolic heart failure. The patient was placed on antibiotics. We will continue with diuretics. We did a new echocardiogram and also the multiple chest x-ray, and also CT scan that showed the infiltrates mostly on the right side. Normally, she uses 3 L of oxygen at home. This patient was improving on a daily basis. She was completely alert, awake and conversant since yesterday. She was feeling significantly better. Her bloody sputum production was significantly decreased as well. Today, basically she requested to be discharged because she was basically at baseline. Her white blood cells normalized. Her INR was slightly decreased at 1.48, but she states that she had been told before to increase the dose for a couple days. Usually, she takes 5 mg of warfarin and she will double the dose to 10. She will call her Coumadin clinic. She seems to be doing well. I had a conversation with the , and he corroborated this information. This patient will be discharged today. She will continue with levofloxacin at home, and the rest of her home medications. 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 DISCHARGE EXAMINATION: Vital Signs: Temperature 98 degrees, pulse 89, respiratory rate 18, blood pressure 160/66, oxygen saturation 100% on 3 L of nasal cannula. HEENT: Head normocephalic. No trauma. PERRLA. Neck: Supple. No JVD. No masses. Central trachea. Chest: Decreased breath sounds globally with prolonged expiratory phase, but no wheezing today. There was some mild crepitus at the right base. Abdomen: Soft, nontender, nondistended. No hepatosplenomegaly. Extremities: No edema. No clubbing. No cyanosis. Neurological: The patient was alert and oriented x3. No focal deficits. LABORATORY: WBC 7.6, hemoglobin 10.8, hematocrit 33.8, and platelets 272,000. Sodium 131, potassium 3.5, chloride 89, bicarbonate 32, BUN 14, creatinine 0.6, glucose 93, calcium 9, and magnesium 2.2. DISCHARGE MEDICATIONS: 1. Baclofen 10 mg p.o. q.12 hours as needed. 2. Vitamin D3 and calcium 1 tablet p.o. daily. 3. Fluoxetine 60 mg p.o. daily. 4. Furosemide 80 mg p.o. b.i.d. 5. Gabapentin 300 mg p.o. t.i.d. 6. [place] 10 one tablet p.o. q.6 hours as needed. 7. Isosorbide mononitrate ER 30 mg p.o. b.i.d. 8. Levofloxacin 500 mg p.o. daily. 9. Levothyroxine 50 mcg p.o. daily. 10. Metoprolol 25 mg p.o. daily. 11. Omeprazole 20 mg p.o. at bedtime. 12. Potassium chloride 20 mg p.o. t.i.d. 13. Prednisone 5 mg p.o. daily. 14. Trazodone 150 mg p.o. at bedtime. 15. Warfarin 5 mg p.o. at bedtime daily, but for the next 2 nights she will take 10 mg p.o. daily. TIME SPENT: Time discharging this patient is 35 minutes. cc: MD Ron Phillip MD
== END 2018-06-14 16:09 | disposition home or self-care (01) | DRG 871 ==
LOC: SUPCPDRO → ED 08:48 → EDIPHOLD 11:43 → SUATTDRO 11:43 → 3S 16:49 → 4N 06-13 15:24
PROVIDERS: ADMIT Internal Medicine; ATTEND Internal Medicine
CPT/HCPCS: 71010; 71045; 71260; 80048; 80053; 81001; 82607; 83605; 83735; 83880; 84132; 84439; 84443; 84484; 85025; 85610; 85730; 87040; 87070; 87077; 87088; 87186; 87205; 87449; 87899; 93005; 93306; 94760; 94761; 94799; 96365; 96366; 96367; 96375; 99285; A9270; C9113; J1940; J1956; J2405; J2543; J3370; J3480; J7030; J7050; Q9967; S0164

== ENCOUNTER 2018-09-15 09:17 | Inpatient (IN) ==
--- NOTE | 2018-09-15 09:36 | PROVIDER DOCUMENTATION ---
HPI-Fever - General Stated Complaint: VOMITING BLOOD Time Seen by Provider: 09/15/18 09:23 Source: patient, other (spouse) Allergies/Adverse Reactions: Patient Allergies Allergy/AdvReac Type Severity Reaction Status Date / Time cefazolin Allergy Intermediate RASH Verified 10/22/17 12:07 metoclopramide HCl * Allergy Intermediate RASH Verified 10/22/17 12:07 [From Reglan] streptomycin [Streptomycin] Allergy Intermediate RASH Verified 10/22/17 12:07 Sulfa (Sulfonamide Allergy Intermediate RASH Verified 10/22/17 12:07 Antibiotics) tetracycline [Tetracycline] Allergy Intermediate RASH Verified 10/22/17 12:07 Home Medications: Home Medication List Medication Instructions Recorded Confirmed Last Taken Type RX: Omeprazole 20 mg PO HS 05/13/13 06/11/18 10/21/17 History RX: Gabapentin 300 mg PO TID 02/10/17 06/11/18 10/22/17 History RX: Warfarin [Coumadin] 5 mg PO QHS 02/10/17 06/11/18 10/21/17 History RX: Duloxetine [Cymbalta] 60 mg PO DAILY 03/07/17 06/11/18 10/22/17 History RX: Levothyroxine [Synthroid] 50 microgm PO DAILY 06/21/17 06/11/18 10/22/17 History RX: Calcium Carbonate/Vitamin D3 1 tab PO DAILY 06/28/17 06/11/18 10/22/17 History [Calcium 600-Vit D3 800 Tablet] RX: Potassium Chloride [Klor-Con 20 meq PO TID 06/28/17 06/11/18 10/22/17 History M20] RX: B-Complex with Vitamin C 1 tab PO DAILY 06/30/17 11/13/17 10/22/17 History [Super B Complex-Vitamin C] RX: Baclofen [Lioresal] 10 mg PO Q12H PRN PRN tablet 06/30/17 06/11/18 10/22/17 Rx RX: Furosemide 80 mg PO BID 06/30/17 06/11/18 10/22/17 History RX: Isosorbide Mononitrate E.r. 30 mg PO BID #60 tab 06/30/17 06/11/18 10/22/17 Rx [Imdur] RX: Hydrocodone/Acetaminophen 1 tab PO Q6H 06/11/18 06/11/18 Unknown History [Hydrocodone-Acetamin 10-325 mg] RX: Metoprolol Succinate 25 mg PO DAILY 06/11/18 06/11/18 Unknown History RX: Prednisone 5 mg PO DAILY 06/11/18 06/11/18 Unknown History RX: Trazodone [Desyrel] 150 mg PO QHS 06/11/18 06/11/18 Unknown History RX: Levofloxacin [Levaquin] 500 mg PO DAILY #5 tab 06/14/18 Unknown Rx - History of Present Illness-Fever Nature of Presenting Problem: Patient presents to the hospital with her with nausia and wretching. She has had shortness of breath and wheezing since 2 am. She had a breathing treatment and went back to sleep. She awoke to nausia and continued fever. She is on 3 liters of O2 at home. She hit her left leg on a car door last week and has had redness. Fever Severity/Quality: reports: no fever, greater than 100.5 F Onset/Duration: reports: 4-6 hours ago Timing: reports: still present Severity: reports: moderate Context: reports: other (copd) Recent Illness?: reports: none Fever Therapy FOREIGN CORRESPONDENT: Initiated none Cognitive Baseline: alert, oriented x3 Modifying Factors: improves with: breathing, coughing, movement Associated Symptoms: reports: cough, fatigue, fever/chills, malaise, shortness of breath Similar Symptoms Previously?: Yes Recently seen or treated by another doctor?: No - Glascow Coma Score Best Eye Response (Waldo): (4) open spontaneously Best Verbal Response (Waldo): (5) oriented Best Motor Response (Waldo): (5) localizes to pain Karson Total: 15 Review of Systems - Adult - REVIEW OF SYSTEMS - ADULT Constitutional: reports: chills, fever Eyes: reports: no symptoms reported Ears, Nose, Mouth & Throat: reports: no symptoms reported Cardiovascular: reports: no symptoms reported Respiratory: reports: see HPI, cough, dyspnea on exertion, hemoptysis, shortness of breath, wheezing Gastrointestinal: reports: hematemesis (has had a little blood in emesis after coughing up blood), nausea, vomiting Genitourinary: reports: no symptoms reported Musculoskeletal: reports: see HPI Neurological: reports: other (redness of left guerrero and small cut) Psychiatric: reports: no symptoms reported Endocrine: reports: no symptoms reported Allergic/Immunologic: reports: no symptoms reported Past History - Adult - PAST MEDICAL HISTORY-ADULT Review of Records: reports: Old Records Reviewed, Nursing Assessment Review Major Childhood Illnesses: reports: denies history Cardiovascular: reports: HTN, heart valve problem, PR Respiratory: reports: denies history Gastrointestinal: reports: denies history Obstetrical/Gynecological: reports: denies history Genitourinary: reports: denies history Musculoskeletal: reports: chronic pain Neurological: reports: denies history Psychiatric: reports: denies history Endocrine/Immune: reports: thyroid disorder Other Conditions: reports: denies history - PRIOR SURGERIES/PROCEDURES Surgical/Procedure History: reports: CABG, other - IMMUNIZATION STATUS Childhood Immunizations: See Nurse Assessment Flu Vaccine: See Nurse Assessment - FAMILY HISTORY Family History: reviewed, not pertinent Physical Exam-General - PHYSICAL EXAM-ADULT Initial Vital Signs Reviewed: Yes - CONSTITUTIONAL General Appearance: alert, mild distress - EYES Eyes: PERRL/EOMI, pink conjunctivae - HEAD, EARS, NOSE, MOUTH & THROAT HENMT: normocephalic/atraumatic, moist mucous membranes, normal ENT inspection, TMs normal, pharynx normal - NECK Neck: non-tender, full range of motion, supple - RESPIRATORY Respiratory: chest non-tender, rales, rhonchi, wheezing - CARDIOVASCULAR Cardiovascular: normal peripheral pulses, regular rate, rhythm, no edema, systolic murmur - GASTROINTESTINAL (ABDOMEN) Abdominal Exam: normal bowel sounds, non tender, soft, no organomegaly - LYMPHATIC Lymphatic: no adenopathy - MUSCULOSKELETAL Back Exam: normal inspection, no CVA tenderness, no vertebral tenderness Extremity: normal range of motion, non-tender, normal gait - SKIN Integumentary: normal color, normal turgor, warm/dry, erythema (left leg) - NEUROLOGIC Neurologic: grossly normal, no motor/sensory deficits Progress - PLAN OF CARE/RESULTS Progress/Plan/Lab Results: Vital Signs - 8 hr 09/15/18 09:25 09/15/18 09:27 09/15/18 09:45 Temperature 102.6 F H Pulse Rate 99 H 92 H Respiratory Rate 29 H 18 Blood Pressure 171/73 O2 Sat by Pulse Oximetry 97 97 09/15/18 10:00 09/15/18 10:04 09/15/18 10:17 Temperature Pulse Rate 91 H 90 88 Respiratory Rate 35 H 28 H 28 H Blood Pressure 166/63 O2 Sat by Pulse Oximetry 97 97 98 09/15/18 10:51 09/15/18 10:55 09/15/18 11:01 Temperature 102.7 F H Pulse Rate 94 H 90 Respiratory Rate 26 H 26 H Blood Pressure 134/110 152/67 O2 Sat by Pulse Oximetry 95 96 09/15/18 11:31 09/15/18 12:01 Temperature Pulse Rate 90 88 Respiratory Rate 27 H 22 Blood Pressure 146/53 135/78 O2 Sat by Pulse Oximetry 96 96 Laboratory Results - last 24 hr 09/15/18 09/15/18 09/15/18 10:00 10:00 10:00 WBC 15.86 H RBC 4.38 Hgb 11.8 L Hct 37.6 MCV 85.8 MCH 26.9 L MCHC 31.4 L RDW Std Deviation 14.4 Plt Count 203 MPV 9.9 Immature Gran % (Auto) 0.3 Neut % (Auto) 90.6 H Lymph % (Auto) 3.8 L [place] % (Auto) 4.7 Eos % (Auto) 0.4 Baso % (Auto) 0.2 Immature Gran # (Auto) 0.04 Neut # (Auto) 14.37 H Lymph # (Auto) 0.61 L [place] # (Auto) 0.75 H Eos # (Auto) 0.06 Baso # (Auto) 0.03 Segmented Neutrophils 89 H Band Neutrophils 2 H Lymphocytes 4 L Monocytes 4 Basophils 1 PT INR PTT (Actin FS) Sodium 138 Potassium 3.5 Chloride 94 L Carbon Dioxide 32 Anion Gap 12 BUN 14 Creatinine 0.7 Estimated GFR/1.73 m2 > 60 BUN/Creatinine Ratio 20 Glucose 101 Calculated Osmolality 276 Calcium 8.7 L Total Bilirubin 0.39 AST 31 H ALT 24 Alkaline Phosphatase 99 Creatine Kinase 99 Troponin T [id number] Pept Total Protein 6.8 Albumin 4.2 Globulin 2.6 Albumin/Globulin Ratio 1.6 Plasma Lactate 0.8 09/15/18 09/15/18 09/15/18 10:00 10:00 10:00 WBC RBC Hgb Hct MCV MCH MCHC RDW Std Deviation Plt Count MPV Immature Gran % (Auto) Neut % (Auto) Lymph % (Auto) [place] % (Auto) Eos % (Auto) Baso % (Auto) Immature Gran # (Auto) Neut # (Auto) Lymph # (Auto) [place] # (Auto) Eos # (Auto) Baso # (Auto) Segmented Neutrophils Band Neutrophils Lymphocytes Monocytes Basophils PT 27.0 H INR 2.30 PTT (Actin FS) 55.8 H Sodium Potassium Chloride Carbon Dioxide Anion Gap BUN Creatinine Estimated GFR/1.73 m2 BUN/Creatinine Ratio Glucose Calculated Osmolality Calcium Total Bilirubin AST ALT Alkaline Phosphatase Creatine Kinase Troponin T < 0.010 [id number] Pept 670 H Total Protein Albumin Globulin Albumin/Globulin Ratio Plasma Lactate Orders Category Date Time Status Cardiac Monitoring DIRECTED Care 09/15/18 09:43 Active IV Insertion ORDERED Care 09/15/18 09:43 Completed Notify MD of + Sepsis Screen NOW Care 09/15/18 09:43 Active Notify Physician As Ordered Care 09/15/18 09:43 Active CHEST-1 VIEW [RAD] Stat Exams 09/15/18 09:43 Completed BLOOD CULTURE [BLDCUL] Stat Lab 09/15/18 10:22 Received CBC WITH DIFF [HEME] Stat Lab 09/15/18 10:00 Completed CK PROFILE [SP CHEM] Stat Lab 09/15/18 10:00 Completed COMPREHENSIVE METABOLIC PANEL [CHEM] Stat Lab 09/15/18 10:00 Completed LACTATE, PLASMA [CHEM] Lab 09/15/18 12:45 Uncollected LACTATE, PLASMA [CHEM] Lab 09/15/18 15:45 Uncollected LACTATE, PLASMA [CHEM] Q3H Lab 09/15/18 10:00 Completed PRO B-NATRIURETIC PEPTIDE Stat Lab 09/15/18 10:00 Completed PROTIME WITH INR [COAG] Stat Lab 09/15/18 10:00 Completed PTT [COAG] Stat Lab 09/15/18 10:00 Completed TROPONIN T Stat Lab 09/15/18 10:00 Completed URINALYSIS W/POSS RFLX CULT [URINALYSIS] Stat Lab 09/15/18 09:43 Uncollected 0.9% Sodium Chloride Inj [Ns] 1,000 ml Med 09/15/18 09:45 Discontinued IV 999 mls/hr 0.9% Sodium Chloride Inj [Ns] 1,000 ml Med 09/15/18 09:45 Discontinued IV 999 mls/hr Acetaminophen [Tylenol] Med 09/15/18 10:57 Discontinued 650 mg PO NOW ONE Albuterol 2.5MG/Ipratrop 0.5MG [Duoneb (A & A)] Med 09/15/18 09:44 Discontinued 3 ml INH NOW ONE Piperacillin/Tazobactam [Zosyn] 3.375 gm Med 09/15/18 12:06 Active 0.9% Sodium Chloride Inj [Ns] 50 ml IV NOW Aerosol Treatments Routine Oth 09/15/18 09:45 Completed Aerosol Treatments Stat Ot 09/15/18 09:45 Completed Oxygen Device Stat Ot 09/15/18 09:43 Completed Result Diagrams: 09/15/18 10:00 09/15/18 10:00 Departure - Departure Date of Disposition Decision: 09/15/18 Time of Disposition Decision: 12:27 DIAGNOSIS: Cellulitis and abscess of left leg, Respiratory failure, Leukocytosis Disposition: ADMITTED INPATIENT 09 Certified Medical Emergency: Emergent Condition: Fair Referrals and Follow-Ups: Jose Amaya MD [Primary Care Provider] - - Critical Care Note This patient required my direct & personal management of CC.: No Attestation - Physician/ BROOKLYNN Attestation Patient care was provided by Advanced Practice Provider:: No The physician spent face to face time with patient:: Yes Advanced Practice Provider documentation review:: Supervising physician onsite and consulted in the evaluation and care of this patient. The physician did have a face to face encounter with the patient.
[2018-09-15] MEDS ORDERED: DUONEB (A & A) INH ONE (09:44)
[2018-09-15] MEDS ORDERED: NS 1,000 ML IV ONE ×2 (09:45)
[2018-09-15 10:27] LABS: INR 2.3
[2018-09-15 10:28] LABS: PTT 55.8 Seconds (22.3-41.8)
[2018-09-15 10:31] LABS: AGAP 12; ALB/GLOB RATIO 1.6; ALBUMIN 4.2 g/dL (3.5-5.0); ALKALINE PHOSPHATASE 99 U/L (32-104); BUN 14 mg/dL (8-22); CALCIUM 8.7 mg/dL (8.8-10.2); CHLORIDE 94 mmol/L (98-107); CK PROFILE 99 U/L (24-173); COSMO 276; CREATININE 0.7 mg/dL (0.5-0.9); ESTIMATED GFR > 60; GLUCOSE 101 mg/dL (70-104); GOT 31 U/L (10-30); GPT 24 U/L (10-36); POTASSIUM 3.5 mmol/L (3.5-5.1); SODIUM 138 mmol/L (136-145); TCO2 32 mmol/L (25-35); TOTAL BILIRUBIN 0.39 mg/dL (0.20-1.00); TOTAL PROTEIN 6.8 g/dL (6.3-8.3)
[2018-09-15 10:39] LABS: BASO# 0.03 X1000 (0.0-0.2); BASO% 0.2 % (0.0-0.8); EOS# 0.06 X1000 (0.0-0.7); EOS% 0.4 % (0.0-10.0); HEMATOCRIT 37.6 % (37.0-47.0); HEMOGLOBIN 11.8 g/dL (12.0-16.0); IMM GRAN# 0.04 X1000 (0.0-0.04); IMM GRAN% 0.3 % (0.0-0.5); LYMPH# 0.61 X1000 (1.2-3.4); LYMPH% 3.8 % (20.5-51.1); MCH 26.9 PG (27-31); MCHC 31.4 g/dL (33-37); MCV 85.8 FL (81-99); MONO# 0.75 X1000 (0.11-0.59); MONO% 4.7 % (1.7-9.3); MPV 9.9 FL (7.4-10.4); NEUT# 14.37 X1000 (1.4-6.5); NEUT% 90.6 % (42.2-75.2); PLT 203 X1000 (130-400); RBC 4.38 XMIL (4.2-5.4); RDW 14.4 % (11.5-14.5); WBC 15.86 X1000 (4.8-10.8)
[2018-09-15] MEDS ORDERED: TYLENOL PO ONE (10:57)
--- NOTE | 2018-09-15 11:23 | Diag Imaging Result Doc PS360 ---
CHEST-1 VIEW - 09/15/2018 INDICATION: cough /hemoptysis COMPARISON: 06/12/2018 FINDINGS: Lung volumes are much lower. Stable cardiomegaly and pulmonary vascular congestion. There is worsening hazy central and bibasilar infiltrates suggestive of pulmonary edema. No large pleural effusion. IMPRESSION: Cardiomegaly and bibasilar pulmonary edema. Electronically signed by Wesley Ceron 09/15/2018 11:21 AM
[2018-09-15 11:25] LABS: BANDS 2 % (0-1); BASO 1 % (0-1); LYMPHS 4 % (21-51); MONO 4 % (1-9); SEGS 89 % (42-75)
[2018-09-15] MEDS ORDERED: ZOSYN 3.375 GM in NS 50 ML IV ONE (12:06)
[2018-09-15 12:55] LABS: URINE SOURCE CLEAN CATCH
[2018-09-15 13:02] LABS: BILIRUBIN URINE NEGATIVE (NEGATIVE); BLOOD URINE NEGATIVE (NEGATIVE); COLOR YELLOW; GLUCOSE URINE NEGATIVE (NEGATIVE); KETONE URINE NEGATIVE (NEGATIVE); LEUKOCYTES URINE NEGATIVE (NEGATIVE); NITRITE URINE NEGATIVE (NEGATIVE); PH URINE 7.5; PROTEIN URINE NEGATIVE (NEGATIVE); TURBIDITY URINE CLEAR (CLEAR); UROBILINOGEN URINE NORMAL (NORMAL)
[2018-09-15 13:03] LABS: UR EPITHELIAL CELLS <10 /HPF (<10); URINE BACTERIA NEGATIVE /HPF; URINE RBC <10 /HPF (<10); URINE WBC <10 /HPF (<10)
--- NOTE | 2018-09-15 14:11 | HISTORY AND PHYSICAL ---
PRIMARY CARE PROVIDER: Dr. Jose Amaya. MARBLE CUTTER OPERATOR: Dr. Watt. HARNESS CLEANER: Dr. Mayberry. CHIEF COMPLAINT: She has felt weak and nauseous for 3 days. She was wheezing at 2 a.m. with a cough, had a fever of 100 initially. She took a breathing treatment, felt she improved. When she got up this morning she was still nauseated and not really vomiting, just more spit-up and when they rechecked her temperature around 7 a.m. it was 102. HISTORY OF PRESENT ILLNESS: Ms. Mosley is a 72-year-old female who carries a past medical history of coronary artery disease status post CABG, aortic and mitral valve replacement mechanical on chronic Coumadin therapy, hypertension, diastolic heart failure secondary to valvular abnormality, paroxysmal atrial fibrillation. She came to the ED complaining of 3 days of weakness and nausea, wheezing at 2 a.m. this morning. She started coughing, improved after breathing treatment. However, when she woke up this morning she continued to have nausea. No real vomiting just more spit up. She did state that she had some bright red specks in it, but no type of dark coffee-grounds emesis. No overt spitting up of blood. Febrile with a temp of 102 degrees. She reported over a week ago she slammed her right extremity into a car door and since that time it has been red and angry and feverish. Workup in the ED today showed a slightly elevated proBNP. She does have some crackles in her left base. She also has some faint expiratory wheezes and is febrile at 102. Her plasma lactate is normal. She does have an elevated white count of 15. We will admit her. She was initially given IV Zosyn that she does have an allergy to. We will switch her over to clindamycin and continue with antiemetics and treat her for mild exacerbation of heart failure and COPD. PAST MEDICAL HISTORY: 1. Coronary artery disease status post CABG. 2. Aortic and mitral valve replacements in 1998, mechanical on chronic Coumadin therapy. 3. Paroxysmal atrial fibrillation. 4. Hypertension. 5. Chronic hypokalemia and hyponatremia. 6. Diastolic heart failure. 7. Small bowel obstruction. 8. GI bleed in June 2013. 9. Hypothyroidism. 10. History of respiratory failure and frequent pneumonia. PAST SURGICAL HISTORY: 1. CABG. 2. Mitral and aortic valve replacement mechanical. 3. Hysterectomy. 4. Cholecystectomy. 5. Breast reconstruction. SOCIAL HISTORY: She lives at home with her . No alcohol, tobacco, or illicit drug use. She quit smoking in 1974. She was a smoker for 18 years, 2 packs per day. FAMILY HISTORY: Nothing significant. ALLERGIES TO: Cefazolin, Reglan, streptomycin, sulfa, and tetracycline. HOME MEDICATION: Per EMR. REVIEW OF SYSTEMS: Twelve-point review of systems completely negative except for those mentioned in HPI. PHYSICAL EXAMINATION: VITAL SIGNS: Temperature 102.7 degrees, heart rate 88, respirations 22, blood pressure 135/78, O2 is 96% on 3 L. GENERAL: Ms. Mosley is a pleasant 72-year-old female who is sitting up in the bed in no acute distress. HEENT: Atraumatic, normocephalic. PERRL. NECK: Supple. Trachea midline. CARDIOVASCULAR: S1, S2 appreciated. CHEST: Bilateral breath sounds. She does have some faint expiratory wheezes in her upper lung bases as well as some crackles at the bases, more noted on her left base. GI: Abdomen is soft, nontender, nondistended. Positive bowel sounds 4 quadrants. EXTREMITIES: Trace edema. She does have a cellulitis to her left lower extremity where she slammed it into a car door. It is not oozing, but it is red and angry. DIAGNOSTIC DATA: Chest x-ray, EKG shows cardiomegaly and bibasilar pulmonary edema. LABORATORY DATA: White count 15, hemoglobin and hematocrit 11 and 37, platelet count is 203,000. PT 27, INR 2.30, PTT 55.8. Sodium 138, potassium 3.5, BUN 14, creatinine 0.7, blood glucose is 101. AST 31. Troponin less than 0.010. ProBNP 670. Urinalysis was negative for any blood, negative for bacteria, negative for nitrites. ASSESSMENT AND PLAN: 1. Mild diastolic congestive heart failure. Last echocardiogram in May 2018 showed an EF of 55 to 60 percent. We will give her 1 time dose of IV Lasix and initiate her back on her 80 of Lasix as well as her metolazone in the a.m. Consult her cvor nurse Dr. Watt. Strict I and Os, daily weights, healthy heart diet. Recheck her proBNP in the a.m. 2. Left lower extremity cellulitis. We will continue with IV clindamycin. Her lactate was normal. 3. Leukocytosis secondary to #2. 4. Mild COPD exacerbation. We will continue on her home supplemental O2, bronchodilators, and aggressive pulmonary toilet. 5. Paroxysmal atrial fibrillation. We will continue her home metoprolol. 6. Coronary artery disease status post CABG. 7. Aortic and mitral valve replacements in 1998 on chronic Coumadin therapy. We will continue with daily PT and INRs. 8. Hypertension. 9. Chronic hypokalemia and hyponatremia. We will continue to monitor her electrolytes. 10. Pulmonary hypertension. Aware. 11. Hypothyroidism. Continue with Synthroid. 12. Chronic hypoxemic respiratory failure, aware, on home O2. 13. Further recommendations to follow physician evaluation, laboratory and diagnostic data. Dictated by HYACINTH Kaur for Stephan Patel MD cc: MD Geraldo Diaz MD David Francis, MD Mamoun I. Najjar, MD
[2018-09-15] MEDS ORDERED: ZOFRAN IV PRN (15:15)
[2018-09-15] MEDS ORDERED: LASIX IV ONE (15:15)
[2018-09-15] MEDS ORDERED: TYLENOL PO PRN (15:15)
[2018-09-15] MEDS ORDERED: DUONEB (A & A) INH PRN (15:15)
[2018-09-15] MEDS: DUONEB (A & A) INH SCH ×3 (15:45→23:09)
[2018-09-15] MEDS: NEURONTIN PO SCH ×2 (16:35→21:07)
[2018-09-15] MEDS: NORCO-10 PO PRN (16:35)
[2018-09-15] MEDS: LIORESAL PO PRN (16:40)
[2018-09-15] MEDS ORDERED: CLINDAMYCIN 600 MG/NS 600 MG/50 ML IVPB IV SCH (17:00)
--- NOTE | 2018-09-15 17:37 | HISTORY AND PHYSICAL ---
PROGRESS NOTE - HISTORY AND PHYSICAL ADDENDUM: SUBJECTIVE: Her major complaint was her leg/her foot. She came in with fever and irritation in her foot. Also complaints of shortness of breath. Apparently, she closed the door on her anterior guerrero and her pants. She had jeans on, but I do not think she completely noticed how much irritation there was, and she had a fever, but it looks like she has got a left lower extremity cellulitis, so we are going to admit her for IV antibiotics. She may have a mild congestive heart failure exacerbation, but I think it is again fairly mild. We will continue diuretics. We will continue IV antibiotics and see how she does. DISPOSITION: Pending her clinical status. This is a [id number] encounter note with Tomasa Crews. cc: Stephan Patel MD
[2018-09-15] MEDS: LACTINEX PO SCH (18:03)
[2018-09-15] MEDS: CLINDAMYCIN 600 MG/D5W 600 MG/50 ML IVPB IV SCH (18:03)
[2018-09-15] MEDS: COUMADIN PO SCH (21:07)
[2018-09-15] MEDS: LASIX PO SCH (21:07)
[2018-09-15] MEDS: PRILOSEC PO SCH (21:07)
[2018-09-15] MEDS: IMDUR PO SCH (21:07)
[2018-09-15] MEDS: DESYREL PO SCH (21:08)
[2018-09-15] MEDS: COZAAR PO SCH (21:08)
[2018-09-16] MEDS: NORCO-10 PO PRN ×3 (00:06→21:28)
[2018-09-16] MEDS: CLINDAMYCIN 600 MG/D5W 600 MG/50 ML IVPB IV SCH ×3 (00:14→16:25)
[2018-09-16] MEDS: DUONEB (A & A) INH SCH ×6 (03:37→23:00)
[2018-09-16] MEDS: SYNTHROID PO SCH (06:30)
[2018-09-16 06:44] LABS: INR 2.62; PROTIME 29.9 Seconds (11.0-16.0)
[2018-09-16 06:48] LABS: BASO# 0.03 X1000 (0.0-0.2); BASO% 0.3 % (0.0-0.8); EOS# 0.15 X1000 (0.0-0.7); EOS% 1.3 % (0.0-10.0); HEMATOCRIT 32.3 % (37.0-47.0); HEMOGLOBIN 9.8 g/dL (12.0-16.0); IMM GRAN# 0.02 X1000 (0.0-0.04); IMM GRAN% 0.2 % (0.0-0.5); LYMPH# 0.87 X1000 (1.2-3.4); LYMPH% 7.8 % (20.5-51.1); MCH 26.6 PG (27-31); MCHC 30.3 g/dL (33-37); MCV 87.5 FL (81-99); MONO# 0.66 X1000 (0.11-0.59); MONO% 5.9 % (1.7-9.3); MPV 9.9 FL (7.4-10.4); NEUT# 9.41 X1000 (1.4-6.5); NEUT% 84.5 % (42.2-75.2); PLT 197 X1000 (130-400); RBC 3.69 XMIL (4.2-5.4); RDW 14.5 % (11.5-14.5); WBC 11.14 X1000 (4.8-10.8)
[2018-09-16 07:27] LABS: SODIUM 142 mmol/L (136-145)
[2018-09-16 07:28] LABS: AGAP 9; ALB/GLOB RATIO 1.3; ALBUMIN 3.4 g/dL (3.5-5.0); ALKALINE PHOSPHATASE 82 U/L (32-104); BUN 10 mg/dL (8-22); CALCIUM 8.3 mg/dL (8.8-10.2); CHLORIDE 101 mmol/L (98-107); COSMO 282; CREATININE 0.6 mg/dL (0.5-0.9); ESTIMATED GFR > 60; GLUCOSE 88 mg/dL (70-104); GOT 26 U/L (10-30); GPT 20 U/L (10-36); TCO2 32 mmol/L (25-35); TOTAL BILIRUBIN 0.45 mg/dL (0.20-1.00)
--- NOTE | 2018-09-16 08:16 | Diag Imaging Result Doc PS360 ---
EXAM: CHEST-2 VIEWS 09/16/2018 HISTORY: short of breath TECHNIQUE: PA and lateral chest COMMENT: There is patchy alveolar opacity in the right lower lobe and some platelike opacities in the lingula and blunting of the left costophrenic angle and pleural thickening versus loculated effusion laterally on the left. The heart size is slightly enlarged. There are sternotomy wires. Compared to 09/15/2018 the inspiration is better but otherwise the appearance the chest has not changed appreciably. There has been no significant change since 06/12/2018. IMPRESSION: Cardiomegaly. Pleural and parenchymal fibrosis on the left. Chronic or recurrent alveolar opacification of the right lower lobe. The possibility of pneumonia cannot be entirely excluded. Electronically signed by Khari Strauss 09/16/2018 8:13 AM
[2018-09-16] MEDS: NEURONTIN PO SCH ×3 (08:39→21:27)
[2018-09-16] MEDS: PREDNISONE PO SCH (08:39)
[2018-09-16] MEDS: LASIX PO SCH ×2 (08:39→21:28)
[2018-09-16] MEDS: TOPROL XL PO SCH (08:40)
[2018-09-16] MEDS: CYMBALTA PO SCH (08:40)
[2018-09-16] MEDS: CALTRATE 600 + D PO SCH (08:40)
[2018-09-16] MEDS: IMDUR PO SCH ×2 (08:40→21:28)
[2018-09-16] MEDS: VICON-C PO SCH (08:41)
[2018-09-16] MEDS: LIORESAL PO PRN (08:48)
[2018-09-16] MEDS ORDERED: KLOR-CON PO ONE (12:12)
--- NOTE | 2018-09-16 13:16 | CARDIOLOGY CONSULTATION ---
DATE: 09/16/2018 HISTORY OF PRESENT ILLNESS: Ms. Mosley came to the hospital with a history of having had fever, irritation in her foot associated with worsening redness onto her guerrero. She apparently closed the door on her anterior guerrero. She says this got infected with increasing features suggestive of cellulitis. In addition, she also noticed shortness of breath and cough. She noted some bright red specks of blood as well in her emesis. She had a temperature of 102. There are no palpitations. There is no dizziness or syncope. REVIEW OF SYSTEM: A 14-point review of systems was done. GI:: Nausea, vomiting with some bright red specks of blood noted. Central nervous system: No focal weakness to suggest a CVA or TIA. Genitourinary: There is no dysuria or hematuria. Respiratory System: As above. PAST MEDICAL HISTORY: 1. Coronary artery disease, status post coronary artery bypass grafting. 2. Aortic and mitral mechanical valve replacement in 1998. 3. Atrial fibrillation. 4. Hypertension. 5. History chronic electrolyte imbalance with hypokalemia and hyponatremia. 6. Diastolic heart failure. 7. Small bowel obstruction in the past. 8. GI bleeding in 2013. 9. Hypothyroidism. 10. History of respiratory failure with frequent pneumonia requiring hospitalizations. 11. Breast reconstruction surgery. 12. Cholecystectomy. SOCIAL HISTORY: She lives with her . No history of alcohol or drug abuse. She quit smoking in 1974. ALLERGIES: She is allergic to cefazolin, Reglan, streptomycin, and sulfonamides. CURRENT MEDICATIONS: 1. Losartan 50. 2. Trazodone 150. 3. Coumadin as directed. 4. Acidobacillus 1 each p.o. t.i.d. 5. Inhalers p.r.n. 6. Baclofen p.r.n. 7. Clindamycin 600 mg 50 IV q.8. 8. Duloxetine 60. 9. Lasix 80 mg p.o. b.i.d. 10. Gabapentin 300 mg p.o. t.i.d. 11. Isosorbide mononitrate 30 p.o. t.i.d. 12. Levothyroxine 50. 13. Magnesium sulfate. 14. Metolazone 2.5 mg Monday, Monday, and Monday. 15. Metoprolol 25 mg a day. 16. Omeprazole 20. 17. Prednisone 5. PHYSICAL EXAMINATION: Vital Signs: Blood pressure was 140/70. Heart: Mechanical prosthetic valve sounds noted. First and second heart sounds were heard. Lungs: There was scattered crepitations. Abdomen: Abdomen was soft, nontender. There was no guarding or rigidity. Bowel sounds were heard. Central nervous system: Alert and oriented. She was moving all 4 extremities. Extremities: Examination of her extremities revealed cellulitic changes on her foot and guerrero. LABORATORY EXAMINATION: WBC down from 15.86 to 11.14, hemoglobin 9.8, hematocrit 32, platelet count of 197. INR is 2.62. Sodium 142, potassium 3.0, creatinine 0.6, BUN is 10. ASSESSMENT AND PLAN: 1. Ms. Leona Mosley is a 73-year-old lady with history of mitral and mechanical and aortic valve replacement and coronary artery bypass grafting, diastolic heart failure, recurrent pneumonia, and has had recurrent episodes of infections in the past, atrial fibrillation. She has had electrolyte imbalance in the past and is on a combination of metolazone and Lasix. She is admitted with shortness of breath, fever and had injured her guerrero and has significant cellulitis of the leg. She feels much better. She is on antibiotics for the same. 2. From a cardiac standpoint, I have not made any changes. She has diastolic heart failure. She had mild heart failure. Continue with her diuretics. She has hypokalemia which has been corrected. 3. She has mechanical valve and is on Coumadin. I would recommend continuing present management. 4. Hypertension. Blood pressure is under control. I have not made any changes. Thank you for the consult. We will follow hospital course. cc: Geraldo Watt MD
[2018-09-16] MEDS: LACTINEX PO SCH ×2 (14:28→17:03)
[2018-09-16] MEDS ORDERED: VANCOMYCIN IV PER PHARMACY MISC SCH (17:00)
--- NOTE | 2018-09-16 17:04 | PROGRESS NOTE ---
DATE: 09/16/2018 SUBJECTIVE: The patient has no major complaints. OBJECTIVE: Blood pressure is 150/53, heart rate 88, respiratory rate is 16, temperature 98.5 degrees, 100% on 2 L. Cardiovascular: Regular rate and rhythm. Pulmonary: Bilateral breath sounds clear to auscultation. GI was soft, nontender, nondistended. Bowel sounds were positive. Her extremity exam, there is maybe a little bit of decrease in the wound but not too much. ASSESSMENT AND PLAN: 1. We will get plain films just to make sure that there are no big changes and see how she does. 2. Coronary artery disease, congestive heart failure, very mild decompensation. We are going to continue her regular medications and follow. We will continue to monitor very closely. cc: Stephan Patel MD
[2018-09-16] MEDS: LIORESAL PO SCH (17:44)
[2018-09-16] MEDS ORDERED: VANCOMYCIN 1,400 MG in NS 250 ML IV ONE (18:00)
--- NOTE | 2018-09-16 18:17 | Diag Imaging Result Doc PS360 ---
EXAM: LOWER LEG-LEFT 09/16/2018 HISTORY: swelling, pain TECHNIQUE: Left lower leg two views COMMENT: There are numerous surgical clips along the medial aspect of the knee and lower leg. There is no evidence of fracture or dislocation. No periosteal reaction or erosion is present. IMPRESSION: No evidence of acute bony disease. Electronically signed by Khari Strauss 09/16/2018 6:15 PM
[2018-09-16] MEDS: PRILOSEC PO SCH (21:27)
[2018-09-16] MEDS: DESYREL PO SCH (21:27)
[2018-09-16] MEDS: COZAAR PO SCH (21:27)
[2018-09-16] MEDS: COUMADIN PO SCH (21:28)
[2018-09-17] MEDS: CLINDAMYCIN 600 MG/D5W 600 MG/50 ML IVPB IV SCH ×2 (01:46→09:32)
[2018-09-17] MEDS: DUONEB (A & A) INH SCH ×4 (03:06→15:33)
[2018-09-17 06:32] LABS: BASO# 0.02 X1000 (0.0-0.2); BASO% 0.3 % (0.0-0.8); EOS# 0.17 X1000 (0.0-0.7); EOS% 2.4 % (0.0-10.0); HEMATOCRIT 30.6 % (37.0-47.0); HEMOGLOBIN 9.4 g/dL (12.0-16.0); LYMPH# 0.79 X1000 (1.2-3.4); MCH 26.7 PG (27-31); MCHC 30.7 g/dL (33-37); MCV 86.9 FL (81-99); MONO# 0.67 X1000 (0.11-0.59); MONO% 9.4 % (1.7-9.3); MPV 9.5 FL (7.4-10.4); NEUT# 5.51 X1000 (1.4-6.5); NEUT% 76.9 % (42.2-75.2); PLT 199 X1000 (130-400); RBC 3.52 XMIL (4.2-5.4); RDW 14.3 % (11.5-14.5); WBC 7.16 X1000 (4.8-10.8)
[2018-09-17] MEDS: SYNTHROID PO SCH (06:41)
[2018-09-17 06:55] LABS: AGAP 9; BUN 9 mg/dL (8-22); CALCIUM 8.2 mg/dL (8.8-10.2); CHLORIDE 104 mmol/L (98-107); COSMO 285; CREATININE 0.7 mg/dL (0.5-0.9); ESTIMATED GFR > 60; GLUCOSE 90 mg/dL (70-104); POTASSIUM 3.5 mmol/L (3.5-5.1); SODIUM 144 mmol/L (136-145); TCO2 31 mmol/L (25-35)
[2018-09-17 07:01] LABS: INR 2.32; PROTIME 27.2 Seconds (11.0-16.0)
[2018-09-17] MEDS ORDERED: ZAROXOLYN PO SCH (08:30)
[2018-09-17] MEDS: IMDUR PO SCH (09:20)
[2018-09-17] MEDS: CYMBALTA PO SCH (09:20)
[2018-09-17] MEDS: PREDNISONE PO SCH (09:21)
[2018-09-17] MEDS: VICON-C PO SCH (09:21)
[2018-09-17] MEDS: NEURONTIN PO SCH ×2 (09:21→15:15)
[2018-09-17] MEDS: CALTRATE 600 + D PO SCH (09:21)
[2018-09-17] MEDS: TOPROL XL PO SCH (09:22)
[2018-09-17] MEDS: LIORESAL PO SCH ×2 (09:22→13:57)
[2018-09-17] MEDS: LACTINEX PO SCH ×2 (09:23→13:57)
[2018-09-17] MEDS: NORCO-10 PO PRN ×2 (09:31→15:16)
[2018-09-17] MEDS: LASIX PO SCH (09:32)
[2018-09-17 15:25] VITALS: BP 124/46
[2018-09-18] MEDS ORDERED: VANCOMYCIN 1,250 MG in NS 250 ML IV SCH (06:00)
--- NOTE | 2018-09-18 10:40 | Extremity Venous Study ---
PROCEDURE NAME: Venous U/S Left Leg - 09/16/2018 REQUESTING PHYSICIAN: Dr. Patel. CLINICAL RESEARCH MANAGEMENT ASSOCIATE: David. INDICATIONS: Left leg swelling and pain. EQUIPMENT: Cabeo E 9 ultrasound system with a 9 L-D transducer. FINDINGS: Images of the left lower extremity venous system with comparison shot to the right common femoral vein were obtained in both sagittal and transverse planes. Doppler was used to evaluate veins for spontaneity, phasicity, respiratory excursion, and digital augmentation. RESULTS: Normal venous compression, normal venous flow. No obvious superficial or deep venous thrombosis noted. INTERPRETATION: Essentially normal left lower extremity venous study. cc: MD Stephan Medley MD
--- NOTE | 2018-09-18 13:18 | DISCHARGE SUMMARY ---
ADMISSION DATE: 09/15/2018 DISCHARGE DATE: 09/17/2018 DISCHARGE DIAGNOSES: 1. Cellulitis of her left lower extremity. 2. Chronic obstructive pulmonary disease, compensated. 3. Coronary artery disease and congestive heart failure also compensated. HISTORY: Briefly a 72-year-old female on chronic Coumadin therapy for atrial fibrillation, who came in with temperature. She has a left leg that is erythematous and warm. She was felt to have a little bit of diastolic heart failure I think mostly because her proBNP was mildly elevated, but other than that she seemed to be doing okay. She was placed on antibiotics which initially clindamycin. We added vancomycin because she still did not have a big improvement. On the day of discharge which was the , she has improved greatly. Her white count which was initially 15, is down to 7. No fevers. Initial fever of 102.7. She was very motivated to go home. Cardiology was consulted because she was due to see Dr. Watt. There were no major changes. She had mild heart failure, which improved. DISCHARGE MEDICATIONS: 1. Warfarin 5 mg at bedtime. 2. Trazodone 150 at bedtime. 3. Losartan 50 at bedtime. 4. Calcium 1 daily. 5. Cymbalta 60 daily. 6. Lasix 80 b.i.d. 7. Gabapentin 300 t.i.d., although I think she reports her dose is 600 t.i.d. 8. [place] p.r.n. 9. Klor-Con 20 t.i.d. 10. Metolazone 2.5 Monday, Monday, Monday. 11. Metoprolol 25. 12. Prilosec 20 daily. 13. Prednisone 5 daily. 14. Synthroid 350 daily. 15. Cleocin 300 t.i.d. for 10 days. 16. Imdur 30 b.i.d. 17. Lactinex 1 t.i.d. for 10 days. 18. Baclofen 10 q.12h. DISCHARGE CONDITION: Stable. FOLLOW UP: Her PCP Dr. Amaya in [address] Watt in 1 to 2 months. Return for worsening pain, swelling or fever. TIME SPENT: 34 minute discharge. cc: Stephan Patel MD [facility] [place]
== END 2018-09-17 18:17 | disposition home or self-care (01) | DRG 602 ==
LOC: SUPCPDRO → ED 09:17 → 4N 13:30
PROVIDERS: ATTEND Internal Medicine
CPT/HCPCS: 71010; 71020; 71045; 71046; 73590; 80048; 80053; 81001; 82550; 83605; 83735; 83880; 84484; 85025; 85610; 85730; 87040; 93971; 94640; 94761; 94799; A9270; J1940; J2543; J3370; J7030; J7050; J7506; J7512

== ENCOUNTER 2019-03-21 16:18 | Inpatient (IN) ==
[2019-03-21 17:40] LABS: EOS# 0.03 X1000 (0.0-0.7); EOS% 0.1 % (0.0-10.0); HEMATOCRIT 30.6 % (37.0-47.0); HEMOGLOBIN 9.7 g/dL (12.0-16.0); LYMPH# 1.93 X1000 (1.2-3.4); LYMPH% 6.6 % (20.5-51.1); MCH 27.4 PG (27-31); MCHC 31.7 g/dL (33-37); MCV 86.4 FL (81-99); MONO# 2.52 X1000 (0.11-0.59); MONO% 8.6 % (1.7-9.3); MPV 10.1 FL (7.4-10.4); PLT 321 X1000 (130-400); RBC 3.54 XMIL (4.2-5.4); RDW 14.9 % (11.5-14.5); WBC 29.21 X1000 (4.8-10.8)
[2019-03-21 18:13] LABS: LYMPHS 10 % (21-51); MONO 1 % (1-9); SEGS 88 % (42-75)
--- NOTE | 2019-03-21 18:34 | PROVIDER DOCUMENTATION ---
HPI-Screening - General Chief Complaint: Rectal Bleeding Stated Complaint: PASSING BLOOD Time Seen by Provider: 03/21/19 18:28 Source: patient Allergies/Adverse Reactions: Allergies Allergy/AdvReac Type Severity Reaction Status Date / Time cefazolin Allergy Intermediate RASH Verified 02/18/19 14:38 metoclopramide HCl * Allergy Intermediate RASH Verified 02/18/19 14:38 [From Reglan] streptomycin [Streptomycin] Allergy Intermediate RASH Verified 02/18/19 14:38 Sulfa (Sulfonamide Allergy Intermediate RASH Verified 02/18/19 14:38 Antibiotics) tetracycline [Tetracycline] Allergy Intermediate RASH Verified 02/18/19 14:38 Home Medications: Home Medication List Medication Instructions Recorded Confirmed Last Taken Type Omeprazole 20 mg PO HS 05/13/13 02/18/19 10/21/17 History Gabapentin 300 mg PO TID 02/10/17 02/18/19 10/22/17 History Warfarin [Coumadin] 5 mg PO QHS 02/10/17 02/18/19 10/21/17 History Duloxetine [Cymbalta] 60 mg PO DAILY 03/07/17 02/18/19 10/22/17 History Levothyroxine [Synthroid] 50 microgm PO DAILY 06/21/17 02/18/19 10/22/17 History Calcium Carbonate/Vitamin D3 1 tab PO DAILY 06/28/17 02/18/19 10/22/17 History [Calcium 600-Vit D3 800 Tablet] Potassium Chloride [Klor-Con M20] 20 meq PO TID 06/28/17 02/18/19 10/22/17 History B-Complex with Vitamin C [Super B 1 tab PO DAILY 06/30/17 02/18/19 10/22/17 History Complex-Vitamin C] Baclofen [Lioresal] 10 mg PO Q12H PRN PRN tablet 06/30/17 02/18/19 10/22/17 Rx Furosemide 80 mg PO BID 06/30/17 02/18/19 10/22/17 History Isosorbide Mononitrate E.r. [Imdur] 30 mg PO BID #60 tab 06/30/17 02/18/19 10/22/17 Rx Hydrocodone/Acetaminophen 1 tab PO Q6H 06/11/18 02/18/19 Unknown History [Hydrocodone-Acetamin 10-325 mg] Metoprolol Succinate 25 mg PO DAILY 06/11/18 02/18/19 Unknown History Prednisone 5 mg PO DAILY 06/11/18 02/18/19 Unknown History Trazodone [Desyrel] 150 mg PO QHS 06/11/18 02/18/19 Unknown History Losartan Potassium 50 mg PO QHS 09/15/18 02/18/19 Unknown History Metolazone 2.5 mg PO DIRECTED 09/15/18 02/18/19 Unknown History Acidophilus/Bulgaricus [Lactinex] 1 ea PO TID #30 packet 09/17/18 02/18/19 Unknown Rx Patient arrived via EMS?: No HPI: Patient is a 73 yowf who complains of n/v/d along with abdominal cramping intermittently since January. Began having black stools last night. Has had 4+ black stools since last night. Also has been having fevers and cough. Denies any other complaints. Physical Exam-Screening - CONSTITUTIONAL General Appearance: alert, no apparent distress. negative: lethargic, slow to respond - HEAD, EARS, NOSE, MOUTH & THROAT HENMT: normocephalic/atraumatic - RESPIRATORY Respiratory: no pleuratic chest pain, no respiratory distress, no accessory muscle use, crackles (at bases bilaterally) - GASTROINTESTINAL (ABDOMEN) Abdominal Exam: normal bowel sounds, soft, tenderness (Mild diffuse). negative: distended, guarding, rigid, rebound - NEUROLOGIC Neurologic: grossly normal - PSYCHIATRIC Psych/Mental Status: normal mood/affect, normal thought content, normal thought process Screening Depart - Departure ED Screening Disposition: Continued in ED for Treatment Referrals and Follow-Ups: Jose Amaya MD [Primary Care Provider] - Attestation - Physician/ BROOKLYNN Attestation Patient care was provided by Advanced Practice Provider:: Yes Advanced Practice Provider:: Gino Cobb Advanced Practice Provider documentation review:: The Mid-level provider documentation, treatment plan and medical decision making was reviewed by the physician who agrees with all treatment and medical decision making by the MLP. The physician spent face to face time with patient:: No Advanced Practice Provider documentation review:: Supervising physician onsite and consulted in the evaluation and care of this patient. The physician did not have a face to face encounter with the patient.
--- NOTE | 2019-03-21 19:02 | Diag Imaging Result Doc PS360 ---
EXAM: CHEST-2 VIEWS - 03/21/2019 HISTORY: cough, leukocytosis, fever TECHNIQUE: Chest two views COMPARISON: 02/18/2019 FINDINGS: Heart size appears upper normal. There are sternal wires from previous surgery again seen. There are pleural thickening and mild pulmonary scarring on the left similar to prior. There are no acute consolidation, pleural effusion, or pneumothorax identified. There is mild bronchial wall thickening which is decreased suggesting improved bronchitis. IMPRESSION: Pleural thickening mild pulmonary scarring on the left similar to prior. Decrease in bronchial wall thickening compared to prior, suggesting improved bronchitis. No evidence of pneumonia. Electronically signed by Luiz [facility] 03/21/2019 6:59 PM
[2019-03-21] MEDS ORDERED: ZOSYN 3.375 GM in NS 50 ML IV ONE (19:16)
--- NOTE | 2019-03-21 19:51 | PROVIDER DOCUMENTATION ---
This chart was entered by Dee Vicente Scribe, acting as scribe for Krishna Doyle MD. HPI-Abdominal Pain/GI Problem - General Chief Complaint: Rectal Bleeding Stated Complaint: PASSING BLOOD Time Seen by Provider: 03/21/19 18:28 Source: patient, family () Allergies/Adverse Reactions: Patient Allergies Allergy/AdvReac Type Severity Reaction Status Date / Time cefazolin Allergy Intermediate RASH Verified 02/18/19 14:38 metoclopramide HCl * Allergy Intermediate RASH Verified 02/18/19 14:38 [From Reglan] streptomycin [Streptomycin] Allergy Intermediate RASH Verified 02/18/19 14:38 Sulfa (Sulfonamide Allergy Intermediate RASH Verified 02/18/19 14:38 Antibiotics) tetracycline [Tetracycline] Allergy Intermediate RASH Verified 02/18/19 14:38 Home Medications: Home Medication List Medication Instructions Recorded Confirmed Last Taken Type Omeprazole 20 mg PO HS 05/13/13 02/18/19 10/21/17 History Gabapentin 300 mg PO TID 02/10/17 02/18/19 10/22/17 History Warfarin [Coumadin] 5 mg PO QHS 02/10/17 02/18/19 10/21/17 History Duloxetine [Cymbalta] 60 mg PO DAILY 03/07/17 02/18/19 10/22/17 History Levothyroxine [Synthroid] 50 microgm PO DAILY 06/21/17 02/18/19 10/22/17 History Calcium Carbonate/Vitamin D3 1 tab PO DAILY 06/28/17 02/18/19 10/22/17 History [Calcium 600-Vit D3 800 Tablet] Potassium Chloride [Klor-Con M20] 20 meq PO TID 06/28/17 02/18/19 10/22/17 History B-Complex with Vitamin C [Super B 1 tab PO DAILY 06/30/17 02/18/19 10/22/17 History Complex-Vitamin C] Baclofen [Lioresal] 10 mg PO Q12H PRN PRN tablet 06/30/17 02/18/19 10/22/17 Rx Furosemide 80 mg PO BID 06/30/17 02/18/19 10/22/17 History Isosorbide Mononitrate E.r. [Imdur] 30 mg PO BID #60 tab 06/30/17 02/18/1910/22/18 Rx Hydrocodone/Acetaminophen 1 tab PO Q6H 06/11/18 02/18/19 Unknown History [Hydrocodone-Acetamin 10-325 mg] Metoprolol Succinate 25 mg PO DAILY 06/11/18 02/18/19 Unknown History Prednisone 5 mg PO DAILY 06/11/18 02/18/19 Unknown History Trazodone [Desyrel] 150 mg PO QHS 06/11/18 02/18/19 Unknown History Losartan Potassium 50 mg PO QHS 09/15/18 02/18/19 Unknown History Metolazone 2.5 mg PO DIRECTED 09/15/18 02/18/19 Unknown History Acidophilus/[place]icus [Lactinex] 1 ea PO TID #30 packet 09/17/18 02/18/19 Unknown Rx - History of Present Illness-ABD Nature of Presenting Problems: Pt is a 73 yowf with mechanical heart valve, currently on warfarin and HTN who presents with generallzied abdominal pain, n/v/d, fever and blood in stool. Pt states that symptoms started 2 days ago with the blood in stool starting yesterday afternoon. Pt states she has a productive cough with yellow turning green phlegm and SOB and chest pain with cough. Pt states she has taken aspirin for the chest pain and was seen at PCP,Dr. Delgadillo, yesterday before blood in stool was noticed. Pt denies urination problems but states she has gotten so weak that she can hardly stand. Pt is alert, mildly distressed but nontoxic in appearance. Abdominal Pain Onset Location: reports: generalized abdomen Pain Radiation: reports: other (legs) Quality of Pain: reports: cramping, dull Severity in ED: reports: moderate Onset/Duration: reports: gradual, 2 days ago Timing: reports: still present (cough and chest pain), constant (abdominal pain) , getting worse (weakness) Activities at Onset: reports: light activity Exposure to sick contacts?: No Modifying Factors: worse with: coughing, defecating, movement, vomiting Associated Symptoms: reports: chest pain, cough, diarrhea, malaise, nausea, shortness of breath, vomiting, weakness. denies: syncope Last BM: unsure Dark Stools Present?: reports: black Rectal Bleeding: reports: blood mixed with stool Rectal Pain: reports: none Emesis Description: reports: none Bruising or Bleeding Gums?: No Similar Symptoms Previously?: No Recently seen or treated by another doctor?: Yes (PCP yesterday) Review of Systems - Adult - REVIEW OF SYSTEMS - ADULT Constitutional: reports: see HPI, fever Eyes: reports: no symptoms reported Ears, Nose, Mouth & Throat: reports: no symptoms reported Cardiovascular: reports: see HPI, chest pain. denies: syncope Respiratory: reports: cough, shortness of breath Gastrointestinal: reports: abdominal pain, diarrhea, nausea, rectal bleeding, vomiting. denies: constipation Genitourinary: denies: frequency, flank pain, urinary retention Musculoskeletal: reports: see HPI, muscle weakness Integumentary: reports: no symptoms reported Neurological: denies: dizziness/vertigo, syncope Psychiatric: reports: no symptoms reported Endocrine: reports: no symptoms reported Hematologic/Lymphatic: reports: no symptoms reported Allergic/Immunologic: reports: no symptoms reported All Other Systems: Reviewed and Negative Past History - Adult - PAST MEDICAL HISTORY-ADULT Review of Records: reports: Old Records Reviewed, Nursing Assessment Review, Medications Reviewed, Social history reviewed & non-contributory. Major Childhood Illnesses: reports: denies history Cardiovascular: reports: HTN, heart valve problem, [place] Respiratory: reports: denies history Gastrointestinal: reports: denies history Obstetrical/Gynecological: reports: denies history Genitourinary: reports: denies history Musculoskeletal: reports: chronic pain Neurological: reports: denies history Psychiatric: reports: denies history Endocrine/Immune: reports: thyroid disorder Other Conditions: reports: denies history - PRIOR SURGERIES/PROCEDURES Surgical/Procedure History: reports: CABG, other - IMMUNIZATION STATUS Childhood Immunizations: See Nurse Assessment Flu Vaccine: See Nurse Assessment - FAMILY HISTORY Family History: reviewed, not pertinent - SOCIAL HISTORY Smoking: non-smoker Substance Use: denies Living Situation: family () Physical Exam-General - PHYSICAL EXAM-ADULT Initial Vital Signs Reviewed: Yes (O2 94 L RA) - CONSTITUTIONAL General Appearance: alert, mild distress, obese - EYES Eyes: PERRL/EOMI, pink conjunctivae - HEAD, EARS, NOSE, MOUTH & THROAT HENMT: moist mucous membranes, normal ENT inspection - NECK Neck: non-tender, full range of motion, normal inspection - RESPIRATORY Respiratory: lungs clear, normal breath sounds, no respiratory distress - CARDIOVASCULAR Cardiovascular: normal peripheral pulses, regular rate, rhythm - GASTROINTESTINAL (ABDOMEN) Abdominal Exam: normal bowel sounds, soft, tenderness (generalized). negative: guarding, rigid, rebound - MUSCULOSKELETAL Back Exam: normal inspection, no CVA tenderness, no vertebral tenderness Extremity: normal range of motion, normal inspection (leg weakness increasing), no pedal edema, no calf tenderness, other - SKIN Integumentary: normal color, normal turgor, warm/dry - PSYCHIATRIC Psych/Mental Status: normal thought content, normal thought process, oriented x 3, anxious, disheveled Progress - PLAN OF CARE/RESULTS Progress/Plan/Lab Results: Vital Signs - 8 hr 03/21/19 16:53 Temperature 98.2 F Pulse Rate 75 Respiratory Rate 16 Blood Pressure 121/67 O2 Sat by Pulse Oximetry 94 L Laboratory Results - last 24 hr 03/21/19 17:07 WBC 29.21 H RBC 3.54 L Hgb 9.7 L Hct 30.6 L MCV 86.4 MCH 27.4 MCHC 31.7 L RDW Std Deviation 14.9 H Plt Count 321 MPV 10.1 Neut % (Auto) Not Reportable Lymph % (Auto) 6.6 L [place] % (Auto) 8.6 Eos % (Auto) 0.1 Baso % (Auto) Not Reportable Neut # (Auto) Not Reportable Lymph # (Auto) 1.93 [place] # (Auto) 2.52 H Eos # (Auto) 0.03 Baso # (Auto) Not Reportable Segmented Neutrophils 88 H Lymphocytes 10 L Monocytes 1 Atypical Lymphocytes 1.0 Orders Category Date Time Status Cardiac Monitoring DIRECTED Care 03/21/19 19:17 Active ED: Orthostatic Vital Signs (E DIRECTED Care 03/21/19 18:35 Active IV Insertion ORDERED Care 03/21/19 19:17 Active Notify MD of + Sepsis Screen NOW Care 03/21/19 19:17 Active Notify Physician As Ordered Care 03/21/19 19:17 Active Nursing- Obtain EKG ONCE Care 03/21/19 18:35 Active Saline Loc DIRECTED Care 03/21/19 16:59 Active Saline Loc NOW Care 03/21/19 18:35 Active NPO Diet 03/21/19 16:59 Active CHEST-1 VIEW [RAD] Stat Exams 03/21/19 19:17 Ordered CHEST-2 VIEWS [RAD] Stat Exams 03/21/19 18:35 Completed AMYLASE [CHEM] Stat Lab 03/21/19 19:18 Ordered BLOOD CULTURE [BLDCUL] Stat Lab 03/21/19 18:59 Uncollected C DIFF TOXIN [STOOL] Stat Lab 03/21/19 18:35 Uncollected CBC WITH ELECTRONIC DIFF [HEME] Stat Lab 03/21/19 17:07 Completed CK PROFILE [SP CHEM] Stat Lab 03/21/19 19:17 Uncollected COMPREHENSIVE METABOLIC PANEL [CHEM] Stat Lab 03/21/19 19:18 Ordered LACTATE, PLASMA [CHEM] Q3H Lab 03/21/19 19:30 Uncollected LACTATE, PLASMA [CHEM] Q3H Lab 03/21/19 22:30 Uncollected LACTATE, PLASMA [CHEM] Q3H Lab 03/22/19 01:30 Uncollected LIPASE [CHEM] Stat Lab 03/21/19 19:18 Ordered OCCULT BLOOD SCREENING [STOOL] Stat Lab 03/21/19 18:35 Uncollected PROTIME WITH INR [COAG] Stat Lab 03/21/19 19:18 Ordered PTT [COAG] Stat Lab 03/21/19 19:18 Ordered TROPONIN T HIGH SENSITIVITY Stat Lab 03/21/19 19:17 Uncollected URINALYSIS W/POSS RFLX CULT [URINALYSIS] Stat Lab 03/21/19 16:59 Uncollected Piperacillin/Tazobactam [Zosyn] 3.375 gm Med 03/21/19 19:16 Active 0.9% Sodium Chloride Inj [Ns] 50 ml IV NOW Oxygen Device Stat Oth 03/21/19 19:17 Active EKG [EKG] Stat Ther 03/21/19 18:35 Ordered Result Diagrams: 03/21/19 17:07 03/21/19 20:05 - XRAY 1 XRAY Study: Chest Impression: See EMR Report (EXAM: CHEST-2 VIEWS - 03/21/2019 HISTORY: cough, leukocytosis, fever TECHNIQUE: Chest two views COMPARISON: 02/18/2019 FINDINGS: Heart size appears upper normal. There are sternal wires from previous surgery again seen. There are pleural thickening and mild pulmonary scarring on the left similar to prior. There are no acute consolidation, pleural effusion, or pneumothorax identified. There is mild bronchial wall thickening which is decreased suggesting improved bronchitis. IMPRESSION: Pleural thickening mild pulmonary scarring on the left similar to prior. Decrease in bronchial wall thickening compared to prior, suggesting improved bronchitis. No evidence of pneumonia. Electronically signed by Luiz Betts 03/21/2019 6:59 PM 03/21/191858 Interpreting Physician: Luiz Betts MD Dictated Date/Time: 03/21/191855 cc: Gino Cobb; Jose Amaya MD) XRAY Interpretation: NAD - CT/MRI 1 CT Study: Abdomen, Pelvis, Thorax CT Results: NAD Departure - Departure Date of Disposition Decision: 03/21/19 Time of Disposition Decision: 23:58 DIAGNOSIS: Hypokalemia Leukocytosis Qualifiers: Leukocytosis type: unspecified Qualified Code(s): D72.829 - Elevated white blood cell count, unspecified Abdominal pain Qualifiers: Abdominal location: generalized Qualified Code(s): R10.84 - Generalized abdominal pain Disposition: ADMITTED INPATIENT 09 Certified Medical Emergency: Emergent Condition: Stable Referrals and Follow-Ups: Jose Amaya MD [Primary Care Provider] - - Critical Care Note This patient required my direct & personal management of CC.: No Attestation - Physician/ BROOKLYNN Attestation Patient care was provided by Advanced Practice Provider:: No The physician spent face to face time with patient:: Yes Advanced Practice Provider documentation review:: Supervising physician onsite and consulted in the evaluation and care of this patient. The physician did have a face to face encounter with the patient. This chart was documented by the indicated scribe, (Dee Vicente, Ramonibru) and accurately reflects the services I performed and decisions made by me, Krishna Doyle MD, as attested by the provider's signature.
[2019-03-21 20:44] LABS: INR 2.17; PROTIME 24.7 Seconds (11.0-16.0)
[2019-03-21 20:45] LABS: PTT 48.7 Seconds (22.3-41.8)
[2019-03-21 21:31] LABS: AGAP 14; ALB/GLOB RATIO 1.5; ALBUMIN 4.2 g/dL (3.5-5.0); ALKALINE PHOSPHATASE 80 U/L (32-104); AMYLASE 75 U/L (20-200); BUN 29 mg/dL (8-22); CALCIUM 8.9 mg/dL (8.8-10.2); CHLORIDE 67 mmol/L (98-107); COSMO 263; CREATININE 0.9 mg/dL (0.5-0.9); ESTIMATED GFR > 60; GLUCOSE 101 mg/dL (70-104); GOT 43 U/L (10-30); GPT 25 U/L (10-36); LIPASE 32 U/L (13-60); POTASSIUM 2.4 mmol/L (3.5-5.1); SODIUM 128 mmol/L (136-145); TCO2 47 mmol/L (25-35); TOTAL BILIRUBIN 0.73 mg/dL (0.20-1.00)
[2019-03-21] MEDS ORDERED: POTASSIUM CHLORIDE 40 MEQ/SWI 40 MEQ/100 ML IVPB IV ONE (21:34)
[2019-03-21] MEDS ORDERED: NS 1,000 ML IV ONE (21:35)
[2019-03-21] MEDS: POTASSIUM CHLORIDE 20 MEQ/SWI 20 MEQ/100 ML IVPB IV SCH (22:00)
[2019-03-22 00:16] LABS: URINE SOURCE CLEAN CATCH
[2019-03-22 00:23] LABS: BILIRUBIN URINE NEGATIVE (NEGATIVE); BLOOD URINE NEGATIVE (NEGATIVE); COLOR YELLOW; GLUCOSE URINE NEGATIVE (NEGATIVE); KETONE URINE NEGATIVE (NEGATIVE); LEUKOCYTES URINE NEGATIVE (NEGATIVE); NITRITE URINE NEGATIVE (NEGATIVE); PH URINE 7.5; PROTEIN URINE TRACE mg/dL (NEGATIVE); SP GRAVITY URINE 1.028; TURBIDITY URINE CLEAR (CLEAR); UROBILINOGEN URINE NORMAL (NORMAL)
[2019-03-22 00:24] LABS: UR EPITHELIAL CELLS <10 /HPF (<10); URINE BACTERIA NEGATIVE /HPF; URINE RBC <10 /HPF (<10); URINE WBC <10 /HPF (<10)
[2019-03-22] MEDS: LEVAQUIN 500 MG/D5W 500 MG/100 ML IVPB IV SCH (00:45)
--- NOTE | 2019-03-22 01:01 | EKG Report ---
Test Performed on : 03/21/2019 11:25:53 PM Test Reason : GI bleed, dizziness Blood Pressure : / mmHG Vent. Rate : 089 BPM Atrial Rate : 052 BPM P-R Int : 000 ms QRS Dur : 122 ms QT Int : 452 ms P-R-T Axes : 000 056 117 degrees QTc Int : 549 ms Wide QRS rhythm. Nonspecific intraventricular conduction delay ST & T wave abnormality, consider inferolateral ischemia Abnormal ECG When compared with ECG of 18-FEB-2019 14:42, (Unconfirmed) Previous ECG has undetermined rhythm, needs review Unconfirmed Result
[2019-03-22] MEDS: ZOSYN 2.25 GM in NS 50 ML IV SCH ×4 (03:05→22:19)
[2019-03-22 03:11] LABS: HEMATOCRIT 26.6 % (37.0-47.0); HEMOGLOBIN 8.4 g/dL (12.0-16.0)
[2019-03-22] MEDS: POTASSIUM CHLORIDE 20 MEQ/SWI 20 MEQ/100 ML IVPB IV SCH (03:49)
[2019-03-22] MEDS: ZOFRAN IV PRN (04:02)
[2019-03-22] MEDS ORDERED: NS 1,000 ML ONE (06:32)
--- NOTE | 2019-03-22 06:50 | HISTORY AND PHYSICAL ---
CHIEF COMPLAINT: Abdominal pain and blood in the stool. HISTORY OF PRESENT ILLNESS: This is a 73-year-old female with a mechanical heart valve. She has both a mechanical aortic and mitral heart valve. She is currently on warfarin for that. She comes in with generalized abdominal pain, nausea, vomiting and diarrhea with black tarry blood in her stools. She also stated that she was having some vomiting. She denied any blood in her emesis. She also stated that she has been having some green phlegm with shortness of breath and chest pain related to cough. I believe she had nausea, diarrhea and fever that started 2 days ago, but the blood in her stool did not start until yesterday afternoon. She stated she has had similar symptoms to this in the past including GI bleed. She has been on blood thinners for several years. At any rate, on arrival, her hemoglobin and hematocrit were 9.7 and 30.6. She was mildly tachycardic but vital signs were otherwise stable. She will be admitted to [facility] for further evaluation and treatment. PAST MEDICAL HISTORY: 1. Coronary artery disease status post coronary artery bypass graft. 2. Chronic Coumadin therapy secondary to mechanical valve replacement in 1998. 3. Paroxysmal atrial fibrillation. 4. Hypertension. 5. Chronic hypokalemia and hyponatremia. 6. Diastolic heart failure. 7. Small bowel obstruction. 8. GI bleed in June of 2013. 9. Hypothyroidism. 10.History of respiratory failure and frequent pneumonias. PREVIOUS SURGICAL HISTORY: 1. CABG, mitral and aortic valve replacement which are mechanical. 2. Hysterectomy. 3. Cholecystectomy. 4. Breast reconstruction. SOCIAL HISTORY: She lives at home with her . No alcohol, tobacco or illicit drugs. She quit smoking in 1974, was a smoker for 18 or so years, 2 packs per day. FAMILY HISTORY: Positive for coronary artery disease. ALLERGIES: Cefazolin, Reglan, streptomycin, sulfa antibiotics and tetracycline. REVIEW OF SYSTEMS: Fourteen point review of systems conducted with the patient. Pertinent positives listed above in the HPI. All other systems reviewed and found to be negative. PHYSICAL EXAMINATION: VITAL SIGNS: Temperature 98.2 degrees, pulse 103, respirations 19, blood pressure 148/76, oxygen saturation 99 on 2% nasal cannula. GENERAL: Pleasant 73-year-old female lying in the ER stretcher. She is alert and oriented x3. Answers all questions appropriately. HEENT: Head is atraumatic, normocephalic. Pupils equal, round and reactive to light. Extraocular eye movements intact. Sclerae anicteric. Conjunctivae pale. Oral mucosa is mildly dry. NECK: Supple. No JVD. No thyromegaly. Trachea is midline. No cervical lymphadenopathy. CARDIAC: S1, S2 appreciated. Mechanical click noted. No murmurs, gallops, rubs. LUNGS:Clear to auscultation bilaterally. No rhonchi, wheezes, rales. Symmetric rise and fall of respirations. ABDOMEN: Soft, nondistended, tender diffusely to palpation. Bowel sounds present in all 4 quadrants. Normoactive. No pulsatile mass or organomegaly. EXTREMITIES: No cyanosis, clubbing or edema. 2+ pedal pulses bilaterally. GENITOURINARY: No bladder distention. Patient voids. Otherwise deferred. NEUROLOGICAL: She is alert and oriented x3. Cranial nerves 2-12 grossly intact. DIAGNOSTIC DATA: CT of the abdomen and pelvis is pending. Chest x-ray shows pleural thickening, mild pulmonary scarring on the left. Decrease in bronchial wall thickening compared to prior suggesting improved bronchitis. No evidence of pneumonia. LABORATORY DATA: WBC 29.21, hemoglobin 9.7, hematocrit 30.6, platelet count 321,000. INR 2.17. Sodium 128, potassium 2.4, chloride 67, carbon dioxide 47, BUN 29, creatinine 0.9, glucose 101. Urine unremarkable. ASSESSMENT AND PLAN: 1. GI bleed. 2. Leukocytosis. This could be related to her daily steroid; however, she has had sputum and upper respiratory infection type symptoms. 3. COPD with mild exacerbation. 4. Coronary artery disease status post coronary artery bypass graft. 5. Aortic and mitral valve replacements with chronic Coumadin anticoagulation. 6. Mild hyponatremia. 7. Hypokalemia. PLAN: We will admit patient and placed her in PVC, consult GI. Start on Protonix 40 mg IV q.12 hours. Her INR is presently just above 2. We will hold her Coumadin but will not give any vitamin K. As noted, GI has been consulted to see the patient. We will transfuse the patient if her hemoglobin were to fall below 7 or her hematocrit below 27. We will start the patient on Levaquin 500 IV q.24 and Zosyn 2.25 IV q.6. Continue normal saline at 125 mL an hour. Repeat recheck potassium. We will start home medications once they have been reconciled and the patient is taking p.o. At this time, we will hold all medications. Further recommendations per patient's clinical course. Dictated by HYACINTH Sinclair for Surya Treviño MD I have performed a face to face diagnostic evaluation. Labs/Xrays- reviewed. Exam- Chest - clear, CV- regular, Abd- soft. A/P- GI Bleed- Admit, NPO, GI consult, monitor H/H. Dr. Treviño cc: HYACINTH Sinclair MD [facility]
--- NOTE | 2019-03-22 07:52 | Diag Imaging Result Doc PS360 ---
EXAM: CT ABD/PELVIS W/IV CONT ONLY INDICATION: abdominal pain,leukocytosis TECHNIQUE: This exam was performed using automated exposure control, adjustment of mA or kV according to patient size, and/or use of iterative reconstruction technique. COMPARISON: 06/28/2017 FINDINGS: There is mild subsegmental atelectasis at the lung bases, predominantly on the left. There has been a prior cholecystectomy. The liver, spleen, pancreas, and adrenal glands are essentially unremarkable. There is chronic appearing mild calyceal dilatation at the upper pole of the right kidney with overlying mild thinning. There is no evidence of acute hydronephrosis. The kidneys are unremarkable, otherwise. The urinary bladder appears normal. There has been a prior hysterectomy. There is very mild uncomplicated sigmoid colonic diverticulosis. There has been a prior appendectomy. No focal bowel wall thickening or bowel obstruction is identified. The remainder of the GI tract is unremarkable. No focal inflammatory changes, free abdominal gas, or free fluid is appreciated. An electronic spinal stimulator is noted. There is stable multilevel degenerative disc disease and facet arthropathy. This causing stable anterolisthesis of L5 on S1. There is no evidence of acute osseous abnormality. IMPRESSION: Stable incidental/nonacute findings detailed above. No definite acute pathology by CT. Electronically signed by Nick Trinidad 03/22/2019 7:49 AM
[2019-03-22] MEDS: PROTONIX IV SCH ×2 (08:48→18:30)
[2019-03-22] MEDS ORDERED: POTASSIUM CHLORIDE 60 MEQ in NS 500 ML IV ONE (09:16)
[2019-03-22 09:54] LABS: INR 1.68; PROTIME 20.1 Seconds (11.0-16.0)
[2019-03-22 10:11] LABS: ESTIMATED GFR > 60
[2019-03-22 10:15] LABS: AGAP 10; ALBUMIN 3.4 g/dL (3.5-5.0); BASO# 0.05 X1000 (0.0-0.2); BASO% 0.6 % (0.0-0.8); BUN 17 mg/dL (8-22); CALCIUM 8.2 mg/dL (8.8-10.2); CHLORIDE 77 mmol/L (98-107); COSMO 264; CREATININE 0.7 mg/dL (0.5-0.9); EOS# 0.03 X1000 (0.0-0.7); EOS% 0.4 % (0.0-10.0); GLUCOSE 103 mg/dL (70-104); HEMATOCRIT 28.5 % (37.0-47.0); IMM GRAN# 0.03 X1000 (0.0-0.04); IMM GRAN% 0.4 % (0.0-0.5); LYMPH# 1.11 X1000 (1.2-3.4); LYMPH% 13.2 % (20.5-51.1); MCHC 31.6 g/dL (33-37); MCV 88.5 FL (81-99); MONO# 0.89 X1000 (0.11-0.59); MONO% 10.6 % (1.7-9.3); MPV 9.1 FL (7.4-10.4); NEUT# 6.27 X1000 (1.4-6.5); NEUT% 74.8 % (42.2-75.2); PHOSPHORUS 1.8 mg/dL (2.7-4.5); PLT 209 X1000 (130-400); POTASSIUM 2.7 mmol/L (3.5-5.1); RBC 3.22 XMIL (4.2-5.4); RDW 14.8 % (11.5-14.5); SODIUM 131 mmol/L (136-145); TCO2 44 mmol/L (25-35); WBC 8.38 X1000 (4.8-10.8)
[2019-03-22] MEDS: KLOR-CON PO SCH ×2 (13:20→17:47)
[2019-03-22] MEDS: NORCO-10 PO PRN ×2 (13:20→22:18)
[2019-03-22 17:24] LABS: BASO# 0.02 X1000 (0.0-0.2); BASO% 0.3 % (0.0-0.8); EOS# 0.07 X1000 (0.0-0.7); HEMATOCRIT 28.8 % (37.0-47.0); IMM GRAN# 0.02 X1000 (0.0-0.04); IMM GRAN% 0.3 % (0.0-0.5); LYMPH# 1.16 X1000 (1.2-3.4); LYMPH% 17.2 % (20.5-51.1); MCH 27.8 PG (27-31); MCHC 31.3 g/dL (33-37); MCV 88.9 FL (81-99); MONO# 0.77 X1000 (0.11-0.59); MONO% 11.4 % (1.7-9.3); MPV 9.9 FL (7.4-10.4); NEUT% 69.8 % (42.2-75.2); PLT 212 X1000 (130-400); RBC 3.24 XMIL (4.2-5.4); RDW 14.9 % (11.5-14.5); WBC 6.74 X1000 (4.8-10.8)
--- NOTE | 2019-03-22 18:25 | GASTROENTEROLOGY CONSULTATION ---
DATE: 03/22/2019 REASON FOR CONSULTATION: Blood in the stool, anemia. HISTORY OF PRESENT ILLNESS: This is a 73-year-old female who came in to the hospital with rectal bleeding. Per her report she has had nausea, vomiting, diarrhea and noting black stools and dark emesis. She has had no vomiting since admission to the hospital and denies having a bowel movement since admission to the hospital. On admission, she was found to have a hemoglobin and hematocrit of 9.7 and 30.6. She has received 1 unit of packed red blood cells. She has reported some abdominal pain. She has a history of aortic and mitral valve replacement in 1998. She is on Coumadin. Patient states she has had GI bleeding in the past. 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 She has had EGD and colonoscopy in the past but is not sure when it was last done. PAST MEDICAL HISTORY: Coronary artery disease status post coronary artery bypass graft, mitral and aortic valve replacement, atrial fibrillation, hypertension, diastolic heart failure, history of small-bowel obstruction, history of GI bleeding, hypothyroidism, history of frequent pneumonia and history of respiratory failure. PAST SURGICAL HISTORY: Coronary artery bypass graft, aortic and mitral valve replacement, mechanical valve, hysterectomy, cholecystectomy, breast reconstruction. ALLERGIES: Cefazolin rash, Reglan rash, streptomycin rash, sulfonamide antibiotics rash, tetracyclines rash. HOME MEDICATIONS: B complex with vitamin C daily, baclofen 10 mg every 12 hours as needed, calcium plus vitamin D daily, Cymbalta 60 mg daily, furosemide 80 mg twice a day, gabapentin 300 mg 3 times a day, hydrocodone/acetaminophen 10/325 one every 6 hours as needed, Imdur 30 mg twice a day, Synthroid 50 mcg daily, losartan 50 mg every night, metolazone 2.5 mg as directed, metoprolol 25 mg daily, omeprazole 20 mg every night, potassium 20 mEq 3 times a day, prednisone 5 mg daily, Desyrel 150 mg every night, Coumadin 5 mg every night. SOCIAL HISTORY: She is . No alcohol or tobacco use. She did quit smoking in 1974. FAMILY HISTORY: Coronary artery disease. REVIEW OF SYSTEMS: Per history of present illness. PHYSICAL EXAM: Vital signs: Temperature 97.8 degrees, pulse 91, respirations 14, blood pressure 136/54. General: Patient is awake and alert in no acute distress. She is in a holding room in the emergency room waiting on a room. HEENT: Normocephalic, atraumatic. Pupils equal, round, reactive to light. Sclerae are nonicteric. Cardiovascular: With mechanical click noted from history of aortic valve replacement. Respiratory: Lung sounds essentially clear. Abdomen: Soft, nontender, positive bowel sounds. Extremities: No lower extremity edema noted. Neurological: Cranial nerves 2-12, patient is awake and alert. LABORATORY: Hematology. WBC 8.38, hemoglobin 9.0, hematocrit 28.5, MCV 88.5, platelet 209,000. Coagulation. Pro time 20.1, INR 1.68, PTT 48.7. Chemistry. Sodium 131, potassium 2.7, chloride 77, CO2 44, BUN 17, creatinine 0.7, calcium 8.2, phosphorus 1.8, total bilirubin 0.73, AST 43, ALT 25, alkaline phosphatase 80, amylase 75, lipase 32. Imaging. Abdominal pelvis CT scan, no evidence of bowel wall thickening or bowel obstruction. Remainder of GI tract is unremarkable. No inflammatory changes, free gas or free fluid. ASSESSMENT AND PLAN: 1. Gastrointestinal bleeding. 2. History of anticoagulation with Coumadin due to mechanical heart valve. 3. Anemia. 4. Coronary artery disease. 5. History of aortic and mitral valve mechanical valve on anticoagulation. 6. Hypokalemia, continue replacement. Continue to monitor for active GI bleeding. She has received a unit of packed red blood cells. We will monitor hemoglobin and hematocrit. Would recommend holding her Coumadin and starting heparin drip. Further plans to be made according to her progress. We will continue to follow and further plans will be made as needed. Patient has been seen by Dr. Olivier. Thank you for this consultation. Dictated by HYACINTH Ferrari for Johnathon Olivier MD cc: HYACINTH Madrigal MD
[2019-03-22 18:56] LABS: BASO# 0.02 X1000 (0.0-0.2); BASO% 0.3 % (0.0-0.8); EOS# 0.07 X1000 (0.0-0.7); EOS% 1.1 % (0.0-10.0); HEMATOCRIT 28.3 % (37.0-47.0); HEMOGLOBIN 8.6 g/dL (12.0-16.0); IMM GRAN# 0.03 X1000 (0.0-0.04); IMM GRAN% 0.5 % (0.0-0.5); LYMPH# 1.14 X1000 (1.2-3.4); LYMPH% 18.5 % (20.5-51.1); MCH 27.1 PG (27-31); MCHC 30.4 g/dL (33-37); MCV 89.3 FL (81-99); MONO# 0.65 X1000 (0.11-0.59); MONO% 10.6 % (1.7-9.3); MPV 9.7 FL (7.4-10.4); NEUT# 4.24 X1000 (1.4-6.5); PLT 218 X1000 (130-400); RBC 3.17 XMIL (4.2-5.4); RDW 14.9 % (11.5-14.5); WBC 6.15 X1000 (4.8-10.8)
[2019-03-22] MEDS ORDERED: HEPARIN IV ONE (19:50)
[2019-03-22] MEDS ORDERED: DESYREL PO SCH (21:00)
[2019-03-22] MEDS: HEPARIN 25,000 UNITS/D5W 25,000 UNIT/250 ML IV.SOLN IV SCH (21:21)
[2019-03-22 21:55] LABS: INR 1.39; PROTIME 17.3 Seconds (11.0-16.0)
[2019-03-22 21:56] LABS: PTT 36.2 Seconds (22.3-41.8)
[2019-03-22] MEDS: LASIX PO SCH (22:07)
[2019-03-22] MEDS: DESYREL PO SCH (22:18)
[2019-03-23] MEDS: LEVAQUIN 500 MG/D5W 500 MG/100 ML IVPB IV SCH (00:14)
[2019-03-23] MEDS: ZOSYN 2.25 GM in NS 50 ML IV SCH ×4 (02:41→20:37)
[2019-03-23] MEDS: HEPARIN IV PRN ×3 (03:16→17:55)
[2019-03-23] MEDS: PROTONIX IV SCH ×4 (05:05→17:54)
[2019-03-23 05:51] LABS: BASO# 0.02 X1000 (0.0-0.2); BASO% 0.3 % (0.0-0.8); EOS# 0.13 X1000 (0.0-0.7); EOS% 1.9 % (0.0-10.0); HEMATOCRIT 27.1 % (37.0-47.0); HEMOGLOBIN 8.4 g/dL (12.0-16.0); IMM GRAN# 0.02 X1000 (0.0-0.04); IMM GRAN% 0.3 % (0.0-0.5); LYMPH# 1.15 X1000 (1.2-3.4); MCH 27.7 PG (27-31); MCV 89.4 FL (81-99); MONO# 0.74 X1000 (0.11-0.59); MONO% 10.9 % (1.7-9.3); MPV 9.7 FL (7.4-10.4); NEUT# 4.71 X1000 (1.4-6.5); NEUT% 69.6 % (42.2-75.2); PLT 209 X1000 (130-400); RBC 3.03 XMIL (4.2-5.4); RDW 14.8 % (11.5-14.5); WBC 6.77 X1000 (4.8-10.8)
[2019-03-23 06:11] LABS: INR 1.4; PROTIME 17.4 Seconds (11.0-16.0)
[2019-03-23 06:20] LABS: AGAP 8; ALBUMIN 3.5 g/dL (3.5-5.0); BUN 10 mg/dL (8-22); CALCIUM 7.7 mg/dL (8.8-10.2); CHLORIDE 85 mmol/L (98-107); COSMO 263; CREATININE 0.7 mg/dL (0.5-0.9); ESTIMATED GFR > 60; GLUCOSE 91 mg/dL (70-104); PHOSPHORUS 1.7 mg/dL (2.7-4.5); SODIUM 132 mmol/L (136-145); TCO2 39 mmol/L (25-35)
[2019-03-23 06:40] LABS: POTASSIUM 2.4 mmol/L (3.5-5.1)
[2019-03-23] MEDS ORDERED: SODIUM PHOSPHATE 35 MMOL in NS 250 ML IV ONE (06:55)
--- NOTE | 2019-03-23 07:16 | PROGRESS NOTE ---
DATE: 03/23/2019 SUBJECTIVE: The patient reports no more signs of bleeding like hematemesis or melena. The patient reports breathing better. OBJECTIVE: Vital Signs: Temperature 98.0, heart rate 87, respiratory rate 18, blood pressure 136/98, O2 saturation 100% on 2 L nasal cannula. General: This is a chronically ill-appearing, 73-year-old female lying in bed, in no acute distress. Cardiovascular: S1, S2 heard. No murmurs, gallops, or rubs. Regular rate and rhythm. Respiratory: Clear bilaterally to auscultation. Minimal wheezing noted in both pulmonary bases. The patient not using any accessory muscles or having work of breathing. Abdomen: Soft. Nontender to palpation. Mild diffuse tenderness in the epigastric area. Bowel sounds present. No organomegaly. Extremities: No clubbing, cyanosis, or edema. Peripheral pulses present in both legs. Neurological: The patient is alert and oriented x3. Moves all 4 extremities. LABORATORY DATA: Hemoglobin is 8.4 this morning. Potassium is 2.4. Phosphorus is 1.7. ASSESSMENT AND PLAN: 1. Gastrointestinal bleeding. At this point apparently there are no more signs of bleeding. Coumadin has been stopped. GI has evaluated this patient. There are no plans for any procedure in the near future. We will continue to monitor CBC daily, and because of the mechanical valve that this patient has, they are going to start a heparin drip on this patient. 2. Chronic obstructive pulmonary disease with mild exacerbation. We will continue with breathing treatments every 4 hours as scheduled. 3. Aortic and mitral valve replacement. The patient is currently on heparin drip. 4. Electrolyte imbalance. Phosphorus and potassium have been very low. We will continue to replenish those. 5. Mild hyponatremia. We will continue to monitor. We will provide IV fluids. cc: Leeroy Waterman MD
[2019-03-23] MEDS: NEUTRA-PHOS PO SCH ×4 (09:12→18:11)
[2019-03-23] MEDS: POTASSIUM CHLORIDE 60 MEQ in NS 500 ML IV SCH ×2 (09:12→14:35)
[2019-03-23] MEDS: LASIX PO SCH ×2 (09:13→20:38)
[2019-03-23] MEDS: NORCO-10 PO PRN ×2 (11:28→17:55)
--- NOTE | 2019-03-23 13:25 | GASTROENTEROLOGY PROGRESS NOTE ---
DATE: 03/23/2019 Ms. Mosley was resting comfortably. She reports no signs of active bleeding. In fact, she had brown stool today. She has not noticed any blood or blood in her stool. She has not had any hematemesis or coffee-ground emesis. She feels comfortable. Has been up and off the bed also.Vitals: Temperature 97.2 degrees, pulse was 100 per minute, breathing 18, blood pressure 155/55 mmHg. Abdomen: Full, soft, nontender. Bowel sounds are audible. LABORATORIES: Reviewed which showed her hemoglobin is 8.4 today with hematocrit 27.1, MCV 89.4, platelets were 209. Her PT was 14.4, INR 1.4, PTT was 43.2. Sodium 132, potassium 2.4, chloride 85, bicarb was 39, BUN was 10, creatinine 0.7. IMPRESSION: 1. Acute gastrointestinal bleed, anemia secondary to gastrointestinal bleed. 2. On chronic anticoagulation for chronic atrial fibrillation. 3. Hypokalemia. PLAN: 1. Her Coumadin has been stopped. She is currently on heparin bridge. She will be able to have endoscopy if she needed. I would reserve endoscopy for therapeutic purposes only. If she does not bleed and maintains her hemoglobin and hematocrit for another 24 hours, we can switch her back to Coumadin and discharge to be followed up by Dr. Miller as an outpatient. 2. Hypokalemia needs to be replenished and monitored. We will continue to follow. cc: Johnathon Olivier MD
[2019-03-23] MEDS ORDERED: HEPARIN IV PRN (15:06)
[2019-03-23] MEDS: HEPARIN 25,000 UNITS/D5W 25,000 UNIT/250 ML IV.SOLN IV SCH (20:37)
[2019-03-23] MEDS: DESYREL PO SCH (20:38)
[2019-03-24] MEDS: LEVAQUIN 500 MG/D5W 500 MG/100 ML IVPB IV SCH (00:17)
[2019-03-24] MEDS: NORCO-10 PO PRN ×3 (01:10→18:05)
[2019-03-24] MEDS: NEUTRA-PHOS PO SCH ×5 (01:10→21:29)
[2019-03-24] MEDS: ZOSYN 2.25 GM in NS 50 ML IV SCH ×4 (02:22→21:28)
[2019-03-24] MEDS: PROTONIX IV SCH ×2 (05:21→17:47)
[2019-03-24 06:55] LABS: INR 1.29; PROTIME 16.3 Seconds (11.0-16.0)
[2019-03-24 07:11] LABS: BASO# 0.03 X1000 (0.0-0.2); BASO% 0.4 % (0.0-0.8); EOS# 0.17 X1000 (0.0-0.7); EOS% 2.3 % (0.0-10.0); HEMATOCRIT 27.8 % (37.0-47.0); HEMOGLOBIN 8.8 g/dL (12.0-16.0); IMM GRAN# 0.03 X1000 (0.0-0.04); IMM GRAN% 0.4 % (0.0-0.5); LYMPH# 1.38 X1000 (1.2-3.4); LYMPH% 18.8 % (20.5-51.1); MCH 28.9 PG (27-31); MCHC 31.7 g/dL (33-37); MCV 91.4 FL (81-99); MONO# 0.88 X1000 (0.11-0.59); MPV 9.7 FL (7.4-10.4); NEUT# 4.85 X1000 (1.4-6.5); NEUT% 66.1 % (42.2-75.2); PLT 242 X1000 (130-400); RBC 3.04 XMIL (4.2-5.4); RDW 16.2 % (11.5-14.5); WBC 7.34 X1000 (4.8-10.8)
--- NOTE | 2019-03-24 07:30 | PROGRESS NOTE ---
DATE: 03/24/2019 SUBJECTIVE: Patient reports no more signs of bleeding, like hematemesis or melena anymore. The patient reports breathing better. Denies any fever or chills. OBJECTIVE: Vital Signs: Temperature 97.8 degrees, heart rate 76, respiratory rate 18, blood pressure 129/48, O2 saturation 100% on 2 L nasal cannula. General Examination: This is a chronically ill-appearing, 73-year-old, female lying in bed, in no acute distress. Cardiovascular Examination: S1 and S2 heard. No murmurs, gallops, or rubs. Regular rate and rhythm. Respiratory Examination: Clear bilaterally to auscultation. I do not hear any wheezing in either pulmonary base today. The patient is not using any accessory muscles of or having work of breathing. Abdomen: Soft, nontender to palpation. Mild diffuse tenderness to palpation, mostly noted in the epigastric area. Bowel sounds present. No organomegaly. Extremities: No clubbing, cyanosis, or edema. Peripheral pulses present in both legs. Neurological Examination: The patient is alert and oriented x3. Moves 4 extremities. Laboratory Data: White cell count is 7.34, with hemoglobin 8.8, hematocrit 27.8, platelets 242,000. INR 1.29. Potassium and phosphorus are still pending at the time of my dictation. ASSESSMENT AND PLAN: 1. Gastrointestinal bleeding. There are no more clinical signs of bleeding. Hemoglobin is stable. Gastroenterology had evaluated this patient yesterday. There are no plans for any procedures in the near future unless it is therapeutic. I think that recently resolved. Plan is to restart Coumadin and will continue with the heparin drip for now. 2. Chronic obstructive pulmonary disease with mild exacerbation. We will continue with breathing treatments every 4 hours as scheduled. 3. Aortic and mitral valve replacement. The patient is currently on a heparin drip. We will restart heparin today and check INR daily. 4. Electrolyte imbalance. Phosphorus and potassium continue to be very low. We will see what the lab shows today and we will go from there. 5. Mild hyponatremia. We will continue to monitor. 6. Disposition. We will continue to monitor this patient closely. We will restart warfarin and if she is feeling better, we will discharge her tomorrow. cc: Leeroy Waterman MD
[2019-03-24] MEDS: KLOR-CON PO SCH ×3 (08:05→17:46)
[2019-03-24] MEDS: LASIX PO SCH ×2 (08:48→21:29)
[2019-03-24 09:08] LABS: ALBUMIN 3.8 g/dL (3.5-5.0); BUN 4 mg/dL (8-22); CREATININE 0.7 mg/dL (0.5-0.9); ESTIMATED GFR > 60; GLUCOSE 90 mg/dL (70-104); PHOSPHORUS 2.5 mg/dL (2.7-4.5); TCO2 31 mmol/L (25-35)
[2019-03-24] MEDS ORDERED: SODIUM PHOSPHATE 35 MMOL in NS 250 ML IV ONE (09:14)
[2019-03-24] MEDS ORDERED: CALCIUM GLUCONATE 2 GM in NS 100 ML IV ONE ×2 (09:47→17:00)
[2019-03-24 10:10] LABS: AGAP 21; CHLORIDE 95 mmol/L (98-107); COSMO 285; POTASSIUM 2.6 mmol/L (3.5-5.1); SODIUM 145 mmol/L (136-145)
--- NOTE | 2019-03-24 13:55 | GASTROENTEROLOGY PROGRESS NOTE ---
DATE: 03/24/2019 SUBJECTIVE: Patient is sitting up in the bed. She states she will be moved to the fourth floor. She denies any further GI bleeding. No reported blood in the stool or black stools. She has a documented brown stool under intake and output report. Hemoglobin and hematocrit are stable. She did receive one unit of packed red blood cells. Hemoglobin and hematocrit today 8.8 and 27.8. OBJECTIVE: Vital Signs: Temperature is 97.5 degrees, pulse 92, respirations 18, blood pressure 126/57. General: Patient is awake and alert, no acute distress. She is sitting on the side of the bed waiting to be transferred to the fourth floor. She has heparin drip infusion. ASSESSMENT AND PLAN: 1. Recent gastrointestinal bleeding seems to have resolved. She has received one unit of packed red blood cells. Hemoglobin and hematocrit are stable. 2. History of aortic and mitral valve replacement, mechanical valve. Her Coumadin was held and she was transitioned over to heparin drip. I believe she will be transitioned back over to Coumadin and hopefully, she will not have any further bleeding. Endoscopy would be reserved for therapeutic purposes. Otherwise, we would recommend she follow up with Dr. Miller, who is her regular compliance nurse. We will continue to follow during her hospital course. Further plans to be made as needed. I have discussed this case with Dr. Olivier. Dictated by HYACINTH Ferrari for Johnathon Olivier MD cc: HYACINTH Madrigal MD
[2019-03-24] MEDS ORDERED: POTASSIUM CHLORIDE 60 MEQ in NS 500 ML IV ONE (14:56)
[2019-03-24] MEDS: ZOFRAN IV PRN (17:01)
[2019-03-24] MEDS: LOVENOX SUBQ SCH (17:46)
[2019-03-24] MEDS: SODIUM CHLORIDE 0.9% INJ SCH (17:47)
[2019-03-24] MEDS: DESYREL PO SCH (21:28)
[2019-03-24] MEDS: COUMADIN PO SCH (21:29)
[2019-03-25] MEDS: NORCO-10 PO PRN ×4 (00:08→20:20)
[2019-03-25] MEDS: LEVAQUIN 500 MG/D5W 500 MG/100 ML IVPB IV SCH (00:50)
[2019-03-25] MEDS: NEUTRA-PHOS PO SCH ×5 (00:54→18:00)
[2019-03-25] MEDS: ZOSYN 2.25 GM in NS 50 ML IV SCH ×3 (02:34→14:50)
[2019-03-25] MEDS: LOVENOX SUBQ SCH ×2 (05:17→18:01)
[2019-03-25] MEDS: SODIUM CHLORIDE 0.9% INJ SCH (05:17)
[2019-03-25] MEDS: PROTONIX IV SCH (05:17)
[2019-03-25] MEDS ORDERED: NS 0 ML ONE (08:27)
[2019-03-25] MEDS: KLOR-CON PO SCH ×3 (08:30→18:00)
[2019-03-25] MEDS: LASIX PO SCH ×2 (08:30→20:19)
[2019-03-25 08:50] LABS: BASO# 0.04 X1000 (0.0-0.2); BASO% 0.5 % (0.0-0.8); EOS% 2.7 % (0.0-10.0); HEMATOCRIT 26.9 % (37.0-47.0); IMM GRAN# 0.06 X1000 (0.0-0.04); IMM GRAN% 0.8 % (0.0-0.5); LYMPH# 1.01 X1000 (1.2-3.4); LYMPH% 13.6 % (20.5-51.1); MCHC 29.7 g/dL (33-37); MCV 90.9 FL (81-99); MONO# 0.89 X1000 (0.11-0.59); MPV 9.5 FL (7.4-10.4); NEUT# 5.23 X1000 (1.4-6.5); NEUT% 70.4 % (42.2-75.2); PLT 265 X1000 (130-400); RBC 2.96 XMIL (4.2-5.4); RDW 16.6 % (11.5-14.5); WBC 7.43 X1000 (4.8-10.8)
[2019-03-25 09:07] LABS: AGAP 10; ALBUMIN 3.5 g/dL (3.5-5.0); BUN 4 mg/dL (8-22); CHLORIDE 98 mmol/L (98-107); COSMO 278; CREATININE 0.7 mg/dL (0.5-0.9); ESTIMATED GFR > 60; GLUCOSE 122 mg/dL (70-104); PHOSPHORUS 2.2 mg/dL (2.7-4.5); POTASSIUM 3.2 mmol/L (3.5-5.1); SODIUM 140 mmol/L (136-145); TCO2 32 mmol/L (25-35)
[2019-03-25 09:08] LABS: INR 1.14; PROTIME 14.8 Seconds (11.0-16.0)
--- NOTE | 2019-03-25 09:13 | PROGRESS NOTE ---
DATE: 03/25/2019 SUBJECTIVE: Patient reports no more signs of bleeding like hematemesis or melena anymore. The patient reports breathing better. Denies any fever or chills. No other issues noted as per nursing staff overnight. OBJECTIVE: Vital Signs: Temperature 97.6 degrees, heart rate 82, respiratory rate 22, blood pressure 156/76, and O2 saturation 100% on 3 L nasal cannula. General: This is a chronically ill- appearing 73-year-old female lying in bed in no acute distress. Cardiovascular: S1, S2 heard. No murmurs, gallops, or rubs. Regular rate and rhythm. Respiratory: Clear bilaterally to auscultation. No work of breathing or using accessory muscles. Abdomen: Soft. Nontender to palpation. Bowel sounds present. No organomegaly. No pain to palpation in the epigastric area. Extremities: No clubbing, cyanosis, or edema. Peripheral pulses present in both legs. Neurological: Patient is alert and oriented x3. Moves all 4 extremities. LABORATORY DATA: Pending at the time of my dictation. ASSESSMENT AND PLAN: 1. GI bleeding. Clinically, there have not been any signs of bleeding for the last couple of days. Hemoglobin is stable from yesterday. We do not have any labs today. GI is following this patient, but they are not planning to do any further procedures on her considering that she does not have any more signs of bleeding and hemoglobin is stable. They were okay restarting the Coumadin. Currently, we are providing this medication to her. 2. Chronic obstructive pulmonary disease with mild exacerbation. At this point, patient's exacerbation is almost resolved. We will continue with breathing treatments as needed. 3. Aortic and mitral valve replacement. The patient is on Lovenox right now. Therapeutic doses 1 mg/kg every 12 hours. We have restarted also the Coumadin. We will continue to check INR daily. 4. Electrolyte imbalance. Phosphorus and potassium has been low yesterday. We are awaiting results of labs today. We will corrected if needed. 5. Disposition: At this point, we will continue to replenish electrolytes. Potassium has been very low today, and this is definitely what is precluding us from discharging this patient. Warfarin has been restarted on her, and we are bridging with Lovenox the INR so at this point we will continue to monitor this patient closely. If INR is to at least 2.0 and electrolytes are okay, I think we can discharge this patient safely tomorrow. cc: Leeroy Waterman MD MTDD
[2019-03-25] MEDS: DESYREL PO SCH (20:19)
[2019-03-25] MEDS: COUMADIN PO SCH (20:19)
--- NOTE | 2019-03-25 20:46 | GASTROENTEROLOGY PROGRESS NOTE ---
DATE: 03/25/2019 SUBJECTIVE: Patient has denied any further hematemesis or melena. Her heparin was discontinued and she has been started on Lovenox and restarted on her Coumadin last evening. The patient denies complaints. She is sitting up in a chair in no acute distress. OBJECTIVE: Vital Signs: Temperature 98.3 degrees, pulse 87, respirations 20, blood pressure 156/91. General: Patient is awake, alert, sitting up in a chair, in no acute distress. Abdomen: Soft. LABORATORY: Hematology: WBC 7.43, hemoglobin 8.0, hematocrit 26.9, MCV 90.9, platelets 265,000. Chemistry: Sodium 140, potassium 3.2, chloride 98, CO2 of 32, BUN 4, creatinine 0.7, glucose 122, calcium 8.0, phosphorus 2.2. Coagulation: Protime 14.8, INR 1.14. ASSESSMENT AND PLAN: 1. Recent melena and hematemesis. The patient has been restarted on Coumadin and also bridging with Lovenox until her PT/INR is acceptable. 2. History of aortic and mitral valve replacement. Coumadin has been restarted. 3. Electrolyte imbalance. Continue replacement as needed. 4. Chronic obstructive pulmonary disease. Continue current management. PLAN: Patient has not had any further active bleeding. Her hemoglobin and hematocrit have been stable. She did receive one unit of packed red blood cells since admission. Waiting on PT/INR to become therapeutic with restarting of Coumadin. We will continue to monitor for further signs of active bleeding and monitor her hemoglobin and hematocrit. I have discussed this case with Dr. Olivier. Dictated by HYACINTH Ferrari for Johnathon Olivier MD cc: HYACINTH Madrigal MD [facility]
[2019-03-25] MEDS: PROTONIX PO SCH (22:43)
[2019-03-26] MEDS: NEUTRA-PHOS PO SCH (01:40)
[2019-03-26] MEDS: NORCO-10 PO PRN ×5 (02:37→22:21)
[2019-03-26] MEDS: LOVENOX SUBQ SCH ×2 (06:19→17:49)
[2019-03-26 07:33] LABS: BASO# 0.03 X1000 (0.0-0.2); BASO% 0.5 % (0.0-0.8); EOS# 0.26 X1000 (0.0-0.7); EOS% 4.2 % (0.0-10.0); HEMATOCRIT 24.7 % (37.0-47.0); HEMOGLOBIN 7.5 g/dL (12.0-16.0); IMM GRAN# 0.02 X1000 (0.0-0.04); IMM GRAN% 0.3 % (0.0-0.5); INR 1.23; LYMPH# 1.02 X1000 (1.2-3.4); LYMPH% 16.5 % (20.5-51.1); MCH 27.7 PG (27-31); MCHC 30.4 g/dL (33-37); MCV 91.1 FL (81-99); MONO# 0.65 X1000 (0.11-0.59); MONO% 10.5 % (1.7-9.3); PLT 235 X1000 (130-400); PROTIME 15.7 Seconds (11.0-16.0); RBC 2.71 XMIL (4.2-5.4); RDW 16.5 % (11.5-14.5); WBC 6.18 X1000 (4.8-10.8)
[2019-03-26 07:52] LABS: AGAP 9; ALBUMIN 3.2 g/dL (3.5-5.0); BUN 5 mg/dL (8-22); CALCIUM 8.2 mg/dL (8.8-10.2); CHLORIDE 100 mmol/L (98-107); COSMO 273; CREATININE 0.7 mg/dL (0.5-0.9); ESTIMATED GFR > 60; GLUCOSE 91 mg/dL (70-104); PHOSPHORUS 2.5 mg/dL (2.7-4.5); POTASSIUM 3.5 mmol/L (3.5-5.1); SODIUM 138 mmol/L (136-145); TCO2 29 mmol/L (25-35)
[2019-03-26] MEDS: LEVAQUIN PO SCH (08:50)
[2019-03-26] MEDS: KLOR-CON PO SCH ×3 (08:51→17:48)
[2019-03-26] MEDS: LASIX PO SCH ×2 (08:51→21:59)
[2019-03-26] MEDS: PROTONIX PO SCH ×2 (08:51→21:59)
--- NOTE | 2019-03-26 13:29 | GASTROENTEROLOGY PROGRESS NOTE ---
DATE: 03/26/2019 SUBJECTIVE: Patient denies complaints today. She has not had any further rectal bleeding. She has been restarted on Coumadin and also bridging with Lovenox until her PT and INR are therapeutic. She did have a slightly lower hemoglobin and hematocrit today at 7.5 and 24.7. OBJECTIVE: Vital Signs: Temperature 97.6 degrees, pulse 91, respirations 18, blood pressure 146/61. General: The patient is awake and alert. No acute distress. Abdomen: Soft, nontender. Laboratory: Hematology: WBC 6.18, hemoglobin 7.5, hematocrit 24.7, MCV 91.1, platelets 235,000. Coagulation: Prothrombin time 15.7, INR 1.23. Chemistry: Sodium 138, potassium 3.5, chloride 100, CO2 of 29, BUN 5, creatinine 0.7, glucose 91, calcium 8.2, phosphorus 2.5, albumin 3.2. ASSESSMENT AND PLAN: 1. Recent rectal bleeding. The patient has not had any further bleeding since admission. Hemoglobin and hematocrit slightly lower today. We will continue to monitor. Repeat CBC in the morning. Continue to monitor for any signs of active bleeding. 2. History of aortic and mitral valve replacement. Patient has been restarted on her Coumadin and bridging with Lovenox until her INR becomes therapeutic. PT and INR today 15.7 and 1.23. 3. Electrolyte imbalance. Patient has had replacement. We will continue to monitor for any signs of active bleeding. Repeat hemoglobin and hematocrit in the morning. Transfuse packed red blood cells as needed. Patient has had 1 unit of packed red blood cells since admission. Further plans to be made according to her progress. I have discussed this case with Dr. Olivier. Dictated by HYACINTH Ferrari for Johnathon Olivier MD cc: HYACINTH Madrigal MD
--- NOTE | 2019-03-26 15:30 | PROGRESS NOTE ---
DATE: 03/26/2019 SUBJECTIVE: I have seen and examined Ms. Mosley today. She refers to be feeling well. The was at the bedside at the time of the encounter. Ms. Mosley refers that she has not had any more rectal bleed and no coffee-grounds emesis. OBJECTIVE: Vital signs: Blood pressure is 146/61, pulse of 91, respirations 18, temperature 97.6 degrees. General: Ms. Mosley is a 73-year-old female. She is in bed, no distress. HEENT: Mucosa is pink and moist. Anicteric. Acyanotic. Neck: Supple. Chest: Good air entry bilaterally. There was no crepitations, no rhonchi. No accessory muscle use. Cardiovascular: Regular rate and rhythm. There is both metallic click at the mitral as well as aortic area due to the mechanical valve. Extremities: No pedal edema. MECHANICAL LABORATORY TECHNICIAN: Patient was awake, alert, and oriented. LABORATORY DATA: Hemoglobin is 7.5 today. Chemistry is completely within normal range except phosphorus was slightly low. INR is 1.23. ASSESSMENT: 1. Hematochezia on admission most likely from Coumadin induced mucosal bleed from the gastrointestinal tract. The patient is not showing any more overt signs of bleeding. However, her hemoglobin and hematocrit continues to drop. 2. History of chronic obstructive pulmonary disease with mild exacerbation on presentation improved. 3. Electrolyte imbalance including hypophosphatemia. We will continue to replace. 4. Status post mitral and aortic mechanical valve. Patient is on Coumadin anticoagulation. INR this morning is 1.23. We are going to go up on her Coumadin 10 mg tonight, bridge it with Lovenox and recheck the INR for tomorrow morning. cc: Jack Tomlinson MD
[2019-03-26] MEDS ORDERED: COUMADIN PO SCH (21:00)
[2019-03-26] MEDS: DESYREL PO SCH (21:59)
[2019-03-27] MEDS: LOVENOX SUBQ SCH (06:50)
[2019-03-27 07:47] VITALS: BP 159/47
[2019-03-27 08:22] LABS: INR 1.25; PROTIME 15.9 Seconds (11.0-16.0)
[2019-03-27 08:51] LABS: HEMATOCRIT 27.9 % (37.0-47.0); HEMOGLOBIN 8.3 g/dL (12.0-16.0); MCHC 29.7 g/dL (33-37); MCV 90.9 FL (81-99); MPV 9.2 FL (7.4-10.4); RBC 3.07 XMIL (4.2-5.4); RDW 16.6 % (11.5-14.5); WBC 7.23 X1000 (4.8-10.8)
[2019-03-27] MEDS: LASIX PO SCH (09:00)
[2019-03-27] MEDS: KLOR-CON PO SCH (09:00)
[2019-03-27] MEDS: PROTONIX PO SCH (09:00)
[2019-03-27] MEDS: LEVAQUIN PO SCH (09:00)
--- NOTE | 2019-03-28 10:45 | DISCHARGE SUMMARY ---
ADMISSION DATE: 03/22/2019 DISCHARGE DATE: 03/27/2019 DISPOSITION: Home. FOLLOWUP: 1. Dr. Amaya. 2. Dr. Olivier. CONSULTATION DURING THIS ADMISSION: GI was consulted and patient was seen by Dr. Ríos. INVASIVE PROCEDURE DONE THIS ADMISSION: None. IMAGING STUDIES OF SIGNIFICANCE: 1. A chest x-ray showed pleural thickening, mild pulmonary scar on the left, similar to prior. There was decrease in bronchial wall thickening compared to prior suggesting improved bronchitis. 2. A CT scan of the abdomen and pelvis showed no acute pathology. ADMISSION DIAGNOSES: 1. Gastrointestinal bleed. 2. Leukocytosis. 3. Chronic obstructive pulmonary disease exacerbation. 4. Coronary artery disease. 5. Status post aortic valve replacement. DIAGNOSIS AT THE TIME OF DISCHARGE: 1. Hematochezia on admission secondary to Coumadin-induced gastrointestinal mucosal bleed. Hemoglobin nd hematocrit were trended over the course of the hospital stay and they were stable. The patient did not need any GI intervention. She got 1 unit of PRBC transfused. 2. History of chronic obstructive pulmonary disease with mild exacerbation on presentation, resolved. 3. Electrolyte imbalance including hypophosphatemia, improved. 4. Status post mitral and aortic mechanical valve replacement. 5. Coumadin therapy. 6. History of coronary artery disease status post coronary artery bypass graft. 7. Hypertension. DISCHARGE MEDICATIONS: 1. Gabapentin 300 three times per day. 2. Duloxetine 60 mg p.o. daily. 3. Levothyroxine 50 mcg p.o. daily. 4. Baclofen 10 mg p.o. q.12. 5. Furosemide 80 mg b.i.d. 6. Imdur 30 mg b.i.d. 7. Trazodone 150 p.o. at bedtime. 8. Metoprolol 25 mg p.o. daily. 9. Losartan 50 mg p.o. daily. 10. Metolazone 2.5 mg p.o. daily. 11. Pantoprazole 40 mg p.o. b.i.d. 12. Lovenox 70 mg subcu every 12 hours for 5 days to overlap with Coumadin until it is therapeutic. PRESENTING COMPLAINT: Abdominal pain, blood in the stool. HISTORY OF PRESENTING COMPLAINT: Ms. Mosley is a 73-year-old elderly female who has multiple comorbidities. She is on Coumadin for anticoagulation because of mechanical valve in the mitral and the aortic valves. She presented because of abdominal discomfort and blood in the stool. Upon presenting, Ms. Mosley was evaluated and admitted to the surgical floor. HOSPITAL COURSE: Ms. Mosley presented with a hemoglobin of 9.7, which dropped all the way to 7.5. She was given a unit of PRBC transfusion at the earlier stages of the hospital course. Hemoglobin improved to about hemoglobin 8.3 and remained. Ms. Mosley also denied having any more black stools or any rectal bleed. She has had multiple bowel movements during the hospital course. Initially, Ms. Mosley' Coumadin was withheld and was started on Lovenox. About 3 days later, Coumadin was restarted. INR is currently still subtherapeutic but it continues to be steadily going up. It is currently at 1.25. Ms. Mosley has been advised to take 10 mg of Coumadin tonight, 5 mg tomorrow and do an INR level on Monday and review the results with her primary care to make changes accordingly. She is going to still overlap with Lovenox. This morning Ms. Mosley referred to be feeling a lot better. She has been walking up and down. She is completely asymptomatic. We think she is stable enough to be discharged home. was at the bedside. All of the discharge instructions were discussed with them and both voiced understanding. TIME ATTESTATION: The time spent for discharge is 38 minutes. cc: MD Johnathon Martell MD David Francis, MD
== END 2019-03-27 11:09 | disposition home or self-care (01) | DRG 813 ==
LOC: ED 16:18 → SUATTDRO 03-22 02:28 → EDIPHOLD 03-22 02:28 → 2N 03-22 17:23 → 4N 03-24 11:05
PROVIDERS: ATTEND Internal Medicine

== ENCOUNTER 2019-05-13 08:38 | Inpatient (IN) ==
[2019-05-13] MEDS ORDERED: VERSED IV ONE ×2 (08:53→08:54)
[2019-05-13] MEDS ORDERED: QUELICIN IV ONE (08:54)
[2019-05-13] MEDS ORDERED: VERSED 100 MG in NS 80 ML IV SCH (09:00)
[2019-05-13] MEDS ORDERED: VERSED ONE (09:01)
[2019-05-13] MEDS ORDERED: ATIVAN IV ONE (09:05)
--- NOTE | 2019-05-13 09:29 | Diag Imaging Result Doc PS360 ---
EXAM: CHEST-1 VIEW HISTORY: sob TECHNIQUE: Single view COMPARISON: 03/21/2019 FINDINGS: The heart is enlarged and there is increased interstitial markings diffusely in the lungs on the current exam. The small pleural effusions. A small amount of basilar atelectasis is present. IMPRESSION: Cardiomegaly with pulmonary edema. Electronically signed by Shahid Robertson 05/13/2019 9:26 AM
[2019-05-13 09:35] LABS: ALLEN TEST YES; BE 6.4 mmoll (-3.0-3.0); BLOOD TYPE ARTERIAL; HCO3-(ACT) 29.8 mmoll (20.0-26.0); METHB 0.7 % (0.0-1.5); O2(CT) 15.4 mL/dL (15.0-23.0); PO2(98.6) 80 mmHg (60-100); SAMPLE BLOOD; SAO2 95.2 % (95.0-100.0); THB 11.7 g/dL (11.5-17.4)
[2019-05-13 09:38] LABS: MODALITY BI PAP; PCO2(98.6) 71 mmHg (35-45)
[2019-05-13 10:10] LABS: BASO# 0.11 X1000 (0.0-0.2); BASO% 0.3 % (0.0-0.8); EOS# 0.12 X1000 (0.0-0.7); EOS% 0.3 % (0.0-10.0); HEMATOCRIT 39.5 % (37.0-47.0); HEMOGLOBIN 11.3 g/dL (12.0-16.0); IMM GRAN# 0.11 X1000 (0.0-0.04); IMM GRAN% 0.3 % (0.0-0.5); LYMPH# 1.22 X1000 (1.2-3.4); LYMPH% 3.5 % (20.5-51.1); MCH 23.7 PG (27-31); MCHC 28.6 g/dL (33-37); MONO# 2.28 X1000 (0.11-0.59); MONO% 6.5 % (1.7-9.3); NEUT# 31.46 X1000 (1.4-6.5); NEUT% 89.1 % (42.2-75.2); PLT 482 X1000 (130-400); RBC 4.76 XMIL (4.2-5.4)
[2019-05-13] MEDS ORDERED: LEVAQUIN 500 MG/D5W 500 MG/100 ML IVPB IV ONE (10:19)
[2019-05-13] MEDS ORDERED: LASIX IV ONE (11:02)
[2019-05-13 11:07] LABS: ANISOCYTOSIS 1+; BANDS 10 % (0-1); EOS 2 % (1-10); HYPOCHROM 2+; LYMPHS 8 % (21-51); MONO 6 % (1-9); SEGS 74 % (42-75)
[2019-05-13] MEDS ORDERED: LEVOPHED 8 MG in D5 1/2 NS 250 ML IV SCH (11:30)
[2019-05-13 11:48] LABS: INR 1.15; PROTIME 14.9 Seconds (11.0-16.0); PTT 27.8 Seconds (22.3-41.8)
[2019-05-13 11:49] LABS: ALLEN TEST YES; BE 10.5 mmoll (-3.0-3.0); BLOOD TYPE ARTERIAL; HCO3-(ACT) 33.1 mmoll (20.0-26.0); METHB 0.7 % (0.0-1.5); O2(CT) 14.9 mL/dL (15.0-23.0); O2HB 95.5 % (95.0-99.0); PO2(98.6) 98 mmHg (60-100); SAMPLE BLOOD; SAO2 97.3 % (95.0-100.0)
[2019-05-13 11:51] LABS: PCO2(98.6) 60 mmHg (35-45)
[2019-05-13 11:52] LABS: MODALITY BI PAP
[2019-05-13 12:08] LABS: URINE SOURCE CATH
[2019-05-13 12:21] LABS: BILIRUBIN URINE NEGATIVE (NEGATIVE); BLOOD URINE NEGATIVE (NEGATIVE); COLOR YELLOW; GLUCOSE URINE NEGATIVE (NEGATIVE); KETONE URINE NEGATIVE (NEGATIVE); LEUKOCYTES URINE NEGATIVE (NEGATIVE); NITRITE URINE NEGATIVE (NEGATIVE); PH URINE 6.5; PROTEIN URINE TRACE mg/dL (NEGATIVE); SP GRAVITY URINE 1.009; TURBIDITY URINE CLEAR (CLEAR); UROBILINOGEN URINE NORMAL (NORMAL)
[2019-05-13 12:23] LABS: UR EPITHELIAL CELLS <10 /HPF (<10); URINE BACTERIA NEGATIVE /HPF; URINE RBC <10 /HPF (<10); URINE WBC <10 /HPF (<10)
[2019-05-13 12:27] LABS: AGAP 17; ALB/GLOB RATIO 1.8; ALBUMIN 4.1 g/dL (3.5-5.0); ALKALINE PHOSPHATASE 78 U/L (32-104); BUN 13 mg/dL (8-22); CALCIUM 8.4 mg/dL (8.8-10.2); CHLORIDE 101 mmol/L (98-107); CK PROFILE 103 U/L (24-173); COSMO 292; CREATININE 0.7 mg/dL (0.5-0.9); ESTIMATED GFR > 60; GLUCOSE 93 mg/dL (70-104); GOT 40 U/L (10-30); GPT 22 U/L (10-36); POTASSIUM 3.9 mmol/L (3.5-5.1); SODIUM 147 mmol/L (136-145); TCO2 29 mmol/L (25-35); TOTAL PROTEIN 6.4 g/dL (6.3-8.3)
--- NOTE | 2019-05-13 12:30 | EKG Report ---
Test Performed on : 05/13/2019 11:51:06 AM Test Reason : sob Blood Pressure : / mmHG Vent. Rate : 094 BPM Atrial Rate : 094 BPM P-R Int : 138 ms QRS Dur : 116 ms QT Int : 370 ms P-R-T Axes : 053 036 218 degrees QTc Int : 462 ms Sinus rhythm. with premature atrial complexes. with aberrant conduction. ST & T wave abnormality, consider inferior ischemia ST & T wave abnormality, consider anterolateral ischemia Abnormal ECG When compared with ECG of 21-MAR-2019 23:25, Sinus rhythm. has replaced Wide QRS rhythm. Unconfirmed Result
--- NOTE | 2019-05-13 12:58 | PROVIDER DOCUMENTATION ---
This chart was entered by Nayeli Pace Scribe, acting as scribe for Saad Hernandez MD. HPI-Respiratory General - General Chief Complaint: SEPSIS ALERT Stated Complaint: SOB Time Seen by Provider: 05/13/19 08:42 Source: patient, family () Allergies/Adverse Reactions: Patient Allergies Allergy/AdvReac Type Severity Reaction Status Date / Time cefazolin Allergy Intermediate RASH Verified 05/13/19 09:53 metoclopramide HCl * Allergy Intermediate RASH Verified 05/13/19 09:53 [From Reglan] streptomycin [Streptomycin] Allergy Intermediate RASH Verified 05/13/19 09:53 Sulfa (Sulfonamide Allergy Intermediate RASH Verified 05/13/19 09:53 Antibiotics) tetracycline [Tetracycline] Allergy Intermediate RASH Verified 05/13/19 09:53 Home Medications: Home Medication List Medication Instructions Recorded Confirmed Last Taken Type Gabapentin 300 mg PO TID 02/10/17 03/22/19 10/22/17 History Duloxetine [Cymbalta] 60 mg PO DAILY 03/07/17 03/22/19 10/22/17 History Levothyroxine [Synthroid] 50 microgm PO DAILY 06/21/17 03/22/19 10/22/17 History Calcium Carbonate/Vitamin D3 1 tab PO DAILY 06/28/17 03/22/19 10/22/17 History [Calcium 600-Vit D3 800 Tablet] Potassium Chloride [Klor-Con M20] 20 meq PO TID 06/28/17 03/22/19 10/22/17 History B-Complex with Vitamin C [Super B 1 tab PO DAILY 06/30/17 03/22/19 10/22/17 History Complex-Vitamin C] Baclofen [Lioresal] 10 mg PO Q12H PRN PRN tablet 06/30/17 03/22/19 10/22/17 Rx Furosemide 80 mg PO BID 06/30/17 03/22/19 10/22/17 History Isosorbide Mononitrate E.r. [Imdur] 30 mg PO BID #60 tab 06/30/17 03/22/19 10/22/17 Rx Hydrocodone/Acetaminophen 1 tab PO Q6H 06/11/18 03/22/19 Unknown History [Hydrocodone-Acetamin 10-325 mg] Metoprolol Succinate 25 mg PO DAILY 06/11/18 03/22/19 Unknown History Trazodone [Desyrel] 150 mg PO QHS 06/11/18 03/22/19 Unknown History Losartan Potassium 50 mg PO QHS 09/15/18 03/22/19 Unknown History Metolazone 2.5 mg PO DIRECTED 09/15/18 03/22/19 Unknown History Enoxaparin [Lovenox] 70 mg SUBQ Q12H #10 syringe 03/27/19 Unknown Rx Pantoprazole [Protonix] 40 mg PO BID #60 tab 03/27/19 Unknown Rx Warfarin Sodium [Coumadin] 5 mg PO QHS #20 tab 03/27/19 Unknown Rx - History of Present Illness-Resp Nature of Presenting Problem: 73 yowf presents to the ed with c/o acute onset this am of sob. pt has hx of flashed pulmonary edema and felt this was the same. pt was placed on bipap once in ed and has improved Quality of Pain: reports: fullness Severity in ED: reports: moderate Onset/Duration: reports: this morning Timing: reports: still present Context: reports: recent URI Cough Quality/Degree: reports: mild, dry cough Episode Frequency: frequent episodes Current Respiratory Medication Therapy: Initiated see nurses note Modifying Factors: improves with: sitting upright, other (bipap). worse with: exertion, lying down Associated Symptoms: reports: cough, shortness of breath. denies: dizziness, wheezing Similar Symptoms Previously?: Yes (flash pulmonary edema) Recently seen or treated by another doctor?: No Review of Systems - Adult - REVIEW OF SYSTEMS - ADULT Constitutional: denies: chills, fever Eyes: reports: no symptoms reported Ears, Nose, Mouth & Throat: reports: no symptoms reported Cardiovascular: denies: chest pain, palpitations Respiratory: reports: see HPI, cough, shortness of breath. denies: wheezing Gastrointestinal: denies: abdominal pain, diarrhea, nausea, vomiting Genitourinary: reports: no symptoms reported Musculoskeletal: reports: no symptoms reported Integumentary: reports: no symptoms reported Neurological: denies: dizziness/vertigo, headache/migraines Psychiatric: reports: no symptoms reported Endocrine: reports: no symptoms reported Hematologic/Lymphatic: reports: no symptoms reported Allergic/Immunologic: reports: no symptoms reported All Other Systems: Reviewed and Negative Past History - Adult - PAST MEDICAL HISTORY-ADULT Review of Records: reports: Old Records Reviewed, Nursing Assessment Review, Medications Reviewed, Social history reviewed & non-contributory. Major Childhood Illnesses: reports: denies history Cardiovascular: reports: HTN, heart valve problem, [place] Respiratory: reports: COPD, lung disease Gastrointestinal: reports: denies history Obstetrical/Gynecological: reports: denies history Genitourinary: reports: denies history Musculoskeletal: reports: chronic pain Neurological: reports: denies history Psychiatric: reports: denies history Endocrine/Immune: reports: thyroid disorder Other Conditions: reports: denies history - PRIOR SURGERIES/PROCEDURES Surgical/Procedure History: reports: CABG, cholecystectomy, hysterectomy - IMMUNIZATION STATUS Childhood Immunizations: See Nurse Assessment Flu Vaccine: See Nurse Assessment - FAMILY HISTORY Family History: reviewed, not pertinent - SOCIAL HISTORY Smoking: quit less than 1 year Substance Use: denies Living Situation: family Physical Exam-General - PHYSICAL EXAM-ADULT Initial Vital Signs Reviewed: Yes - CONSTITUTIONAL General Appearance: alert, moderate distress - EYES Eyes: PERRL/EOMI, pink conjunctivae - HEAD, EARS, NOSE, MOUTH & THROAT HENMT: moist mucous membranes, normal ENT inspection - NECK Neck: non-tender, full range of motion, supple, normal inspection - RESPIRATORY Respiratory: respiratory distress, rhonchi (left worse then right), increased rate (36) - CARDIOVASCULAR Cardiovascular: normal peripheral pulses, tachycardia (149) - CHEST (BREASTS) Chest/Breast: deferred - GASTROINTESTINAL (ABDOMEN) Abdominal Exam: normal bowel sounds, non tender, soft - GENITOURINARY Female Genitalia/Pelvic Exam: deferred Rectal Exam: deferred Hemoccult Exam: deferred - LYMPHATIC Lymphatic: no adenopathy - MUSCULOSKELETAL Back Exam: no CVA tenderness, no vertebral tenderness Extremity: normal range of motion, non-tender, normal gait, normal inspection - SKIN Integumentary: normal color, normal turgor, warm/dry - NEUROLOGIC Neurologic: grossly normal - PSYCHIATRIC Psych/Mental Status: normal mood/affect, normal thought content, normal thought process, oriented x 3 - HEART Score HEART Score: History: Moderately Suspicious HEART Score: ECG: Non-Specific Repolarization Disturbance/LBBB/PM HEART Score: Age: > or = 65 Years HEART Score: Risk Factors for Atherosclerotic Disease: > or = 3 Risk Factors or History of Atherosclerotic Disease HEART Score: Troponin: 1-3x Normal Limit Total HEART Score:: 7 Progress - PLAN OF CARE/RESULTS Progress/Plan/Lab Results: Vital Signs - 8 hr 05/13/19 08:45 Temperature 97.2 F L Pulse Rate 149 H Respiratory Rate 36 H Blood Pressure 174/102 O2 Sat by Pulse Oximetry 98 Laboratory Results - last 24 hr 05/13/19 05/13/19 05/13/19 09:15 09:20 10:01 WBC 35.30 H RBC 4.76 Hgb 11.3 L Hct 39.5 MCV 83.0 MCH 23.7 L MCHC 28.6 L RDW Std Deviation 16.0 H Plt Count 482 H MPV 10.0 Immature Gran % (Auto) 0.3 Neut % (Auto) 89.1 H Lymph % (Auto) 3.5 L Reynolds % (Auto) 6.5 Eos % (Auto) 0.3 Baso % (Auto) 0.3 Immature Gran # (Auto) 0.11 H Neut # (Auto) 31.46 H Lymph # (Auto) 1.22 Reynolds # (Auto) 2.28 H Eos # (Auto) 0.12 Baso # (Auto) 0.11 Segmented Neutrophils 74 Band Neutrophils 10 H Lymphocytes 8 L Monocytes 6 Eosinophils 2 Pathologist Review Hypochromia 2+ Anisocytosis 1+ PT 14.9 INR 1.15 PTT (Actin FS) 27.8 Specimen Type ARTERIAL Sample Site R RADIAL pH 7.30 L pCO2 71 H* pO2 80 HCO3 29.8 H Base Excess 6.4 H Oxyhemoglobin 93.0 L ABG O2 Sat (Calculated) 15.4 ABG O2 Saturation 95.2 ABG Carboxyhemoglobin 1.50 ABG Methemoglobin 0.7 Chris Test YES A-a O2 Difference 116.0 Total Hemoglobin 11.7 Lactate 2.10 Blood Gas Modality BI PAP FiO2 % 40.0 Inspiratory BiPAP 18.0 Expiratory BiPAP 6.0 Sodium Potassium Chloride Carbon Dioxide Anion Gap BUN Creatinine Estimated GFR/1.73 m2 BUN/Creatinine Ratio Glucose Calculated Osmolality Calcium Total Bilirubin AST ALT Alkaline Phosphatase Creatine Kinase Troponin T High Sens Luq-I-Qzbyvsgvgkv Pept Total Protein Albumin Globulin Albumin/Globulin Ratio Urine Source Urine Color Urine Turbidity Urine pH Ur Specific [place] Urine Protein Ur Glucose (Stick) Ur Ketones (Stick) Urine Blood Urine Nitrite Urine Bilirubin Urobilinogen Dipstick Urine Leukocytes Urine WBC (Auto) Urine RBC (Auto) U Epithel Cells (Auto) Urine Bacteria (Auto) 05/13/19 05/13/19 05/13/19 10:01 11:30 11:30 WBC RBC Hgb Hct MCV MCH MCHC RDW Std Deviation Plt Count MPV Immature Gran % (Auto) Neut % (Auto) Lymph % (Auto) Reynolds % (Auto) Eos % (Auto) Baso % (Auto) Immature Gran # (Auto) Neut # (Auto) Lymph # (Auto) Reynolds # (Auto) Eos # (Auto) Baso # (Auto) Segmented Neutrophils Band Neutrophils Lymphocytes Monocytes Eosinophils Pathologist Review Hypochromia Anisocytosis PT INR PTT (Actin FS) Specimen Type Sample Site pH pCO2 pO2 HCO3 Base Excess Oxyhemoglobin ABG O2 Sat (Calculated) ABG O2 Saturation ABG Carboxyhemoglobin ABG Methemoglobin Chris Test A-a O2 Difference Total Hemoglobin Lactate Blood Gas Modality FiO2 % Inspiratory BiPAP Expiratory BiPAP Sodium 147 H Potassium 3.9 Chloride 101 Carbon Dioxide 29 Anion Gap 17 BUN 13 Creatinine 0.7 Estimated GFR/1.73 m2 > 60 BUN/Creatinine Ratio 19 Glucose 93 Calculated Osmolality 292 Calcium 8.4 L Total Bilirubin 0.30 AST 40 H ALT 22 Alkaline Phosphatase 78 Creatine Kinase 103 Troponin T High Sens Oep-M-Oyfbyshyegm Pept 1752 H Total Protein 6.4 Albumin 4.1 Globulin 2.3 Albumin/Globulin Ratio 1.8 Urine Source CATH Urine Color YELLOW Urine Turbidity CLEAR Urine pH 6.5 Ur Specific [place] 1.009 Urine Protein TRACE A Ur Glucose (Stick) NEGATIVE Ur Ketones (Stick) NEGATIVE Urine Blood NEGATIVE Urine Nitrite NEGATIVE Urine Bilirubin NEGATIVE Urobilinogen Dipstick NORMAL Urine Leukocytes NEGATIVE Urine WBC (Auto) <10 Urine RBC (Auto) <10 U Epithel Cells (Auto) <10 Urine Bacteria (Auto) NEGATIVE 05/13/19 05/13/19 11:30 11:40 WBC RBC Hgb Hct MCV MCH MCHC RDW Std Deviation Plt Count MPV Immature Gran % (Auto) Neut % (Auto) Lymph % (Auto) Reynolds % (Auto) Eos % (Auto) Baso % (Auto) Immature Gran # (Auto) Neut # (Auto) Lymph # (Auto) Reynolds # (Auto) Eos # (Auto) Baso # (Auto) Segmented Neutrophils Band Neutrophils Lymphocytes Monocytes Eosinophils Pathologist Review Hypochromia Anisocytosis PT INR PTT (Actin FS) Specimen Type ARTERIAL Sample Site R BRACHIAL pH 7.40 pCO2 60 H* pO2 98 HCO3 33.1 H Base Excess 10.5 H Oxyhemoglobin 95.5 ABG O2 Sat (Calculated) 14.9 L ABG O2 Saturation 97.3 ABG Carboxyhemoglobin 1.10 ABG Methemoglobin 0.7 Chris Test YES A-a O2 Difference 112.0 Total Hemoglobin 11.0 L Lactate 1.10 Blood Gas Modality BI PAP FiO2 % 40.0 Inspiratory BiPAP 18.0 Expiratory BiPAP 6.0 Sodium Potassium Chloride Carbon Dioxide Anion Gap BUN Creatinine Estimated GFR/1.73 m2 BUN/Creatinine Ratio Glucose Calculated Osmolality Calcium Total Bilirubin AST ALT Alkaline Phosphatase Creatine Kinase Troponin T High Sens 187 H* Wpl-S-Tqbmhnhtjep Pept Total Protein Albumin Globulin Albumin/Globulin Ratio Urine Source Urine Color Urine Turbidity Urine pH Ur Specific [place] Urine Protein Ur Glucose (Stick) Ur Ketones (Stick) Urine Blood Urine Nitrite Urine Bilirubin Urobilinogen Dipstick Urine Leukocytes Urine WBC (Auto) Urine RBC (Auto) U Epithel Cells (Auto) Urine Bacteria (Auto) Orders Category Date Time Status Cardiac Monitoring NOW Care 05/13/19 09:46 Active Padilla Cath Insertion ORDERED Care 05/13/19 11:30 Active IV Insertion NOW Care 05/13/19 09:46 Completed NEWS Score >or=5:Order NEWS Bundle S.O. NOW Care 05/13/19 09:42 Active Notify Provider of NEWS Score NOW Care 05/13/19 09:46 Active Nursing [Misc. NRSG Communication Order] DIRECTED Care 05/13/19 12:44 Active Nursing- Obtain EKG ONCE Care 05/13/19 08:42 Active CHEST-1 VIEW [RAD] Stat Exams 05/13/19 08:[address] THORAX W/CONTRAST [CT] Stat Exams 05/13/19 12:41 Ordered ABG [RESP] Routine Lab 05/13/19 09:20 Completed ABG [RESP] Routine Lab 05/13/19 11:40 Completed BLOOD CULTURE [BLDCUL] Stat Lab 05/13/19 11:30 Ordered C REACTIVE PROT QUANT [CHEM] Stat Lab 05/13/19 12:51 Ordered CBC WITH ELECTRONIC DIFF [HEME] Stat Lab 05/13/19 09:15 Completed CK PROFILE [SP CHEM] Routine Lab 05/13/19 11:30 Completed CK PROFILE [SP CHEM] Stat Lab 05/13/19 12:40 Ordered COMPREHENSIVE METABOLIC PANEL [CHEM] Routine Lab 05/13/19 11:30 Completed LACTATE, PLASMA [CHEM] Q3H Lab 05/13/19 10:00 Uncollected LACTATE, PLASMA [CHEM] Q3H Lab 05/13/19 13:00 Uncollected LACTATE, PLASMA [CHEM] Q3H Lab 05/13/19 16:00 Uncollected PRO B-NATRIURETIC PEPTIDE Routine Lab 05/13/19 11:30 Completed PROTIME WITH INR [COAG] Stat Lab 05/13/19 10:01 Completed PTT [COAG] Stat Lab 05/13/19 10:01 Completed SED RATE [HEME] Stat Lab 05/13/19 12:51 Ordered TROPONIN T HIGH SENSITIVITY Routine Lab 05/13/19 11:30 Completed UA [URINALYSIS W/POSS RFLX CULT] [URINALYSIS] Stat Lab 05/13/19 10:01 Completed URINALYSIS W/POSS RFLX CULT [URINALYSIS] Stat Lab 05/13/19 09:46 Uncollected 0.9% Sodium Chloride Inj [Ns] 80 ml Med 05/13/19 09:00 Discontinued Midazolam [Versed] 100 mg IV As Directed mls/hr Dextrose 5%-0.45% NaCl Inj [D5 1/2 Ns] 250 ml Med 05/13/19 11:30 Active Norepinephrine [Levophed] 8 mg IV As Directed mls/hr Furosemide [Lasix] Med 05/13/19 11:02 Discontinued 40 mg IV NOW ONE Levofloxacin 500 mg/D5w [Levaquin 500 mg/D5w] Med 05/13/19 10:19 Discontinued 500 mg in 100 ml IV NOW Linezolid 600 mg/D5w [Zyvox 600 mg/D5w] Med 05/13/19 11:15 Active 600 mg in 300 ml IV Q12H Lorazepam [Ativan] Med 05/13/19 09:05 Discontinued 1 mg IV NOW ONE Midazolam [Versed] Med 05/13/19 09:01 Discontinued 5 mg .ROUTE .STK-MED ONE Midazolam [Versed] Med 05/13/19 08:53 Discontinued 5 mg IV NOW ONE Midazolam [Versed] Med 05/13/19 08:54 Discontinued See Dose Instructions IV NOW ONE Succinylcholine [Quelicin] Med 05/13/19 08:54 Discontinued 100 mg IV NOW ONE BIPAP Stat Oth 05/13/19 08:59 Active O2 Per Protocol Stat Oth 05/13/19 09:46 Active EKG [EKG] Stat Ther 05/13/19 08:42 Draft spoke with chris with the hospitalist pt will be admitted 1252 with elevated trop. pt will be admitted to dr ruiz Result Diagrams: 05/13/19 09:15 05/13/19 11:30 - REASSESSMENT Reassessment #1 Time Reassessed: 10:38 Status: improving (pt BP is better and pt is speaking and doing much improved) Reassessment #2 Time Reassessed: 12:15 Status: unchanged (pt is resting in bed) - EKG 1 Time of EKG reading by physician:: 11:51 EKG Read and Signed by:: Saad Hernandez EKG Interpretation (*Must complete 3 of following elements*): Abnormal Rate: 94 Rhythm: sinus rhythm w/ pac with aberrant conduction [place]: normal QRS: normal [place] Interval: normal Comments: ST&T wave abnormality, consider inferior or anterolateral ischemia - XRAY 1 XRAY: Bilateral XRAY Study: Chest Impression: See EMR Report (IMPRESSION: Cardiomegaly with pulmonary edema. Electronically signed by Shahid Robertson 05/13/2019 9:26 AM 05/13/[id number]) - CONSULTS/PCP/HOSPITALIST Notification #1 *Consult/PCP/Hospitalist*: Hospitalist Dr Ruiz Time Discussed: 09:55 (phone consult) Reason/Comments: intubation vs Bipap advised to hold off intubation and possible use N/C. #2 Consult: dr lora pulmonary Time Discussed: 10:00 (if not suspected Covid19 place pt on Bipap) Reason/Comments: phone consult #3 Consult: dr davies cardio Time Discussed: 12:41 (phone conversation) Reason/Comments: will consult Departure - Departure Date of Disposition Decision: 05/13/19 Time of Disposition Decision: 11:13 DIAGNOSIS: Hypoxia, Pneumonia, CHF (congestive heart failure), NSTEMI (non-ST elevated myocardial infarction), Elevated troponin, Respiratory distress Leukocytosis Qualifiers: Leukocytosis type: other Qualified Code(s): D72.828 - Other elevated white blood cell count Disposition: ADMITTED INPATIENT 09 Certified Medical Emergency: Emergent Condition: Serious Referrals and Follow-Ups: Jose Amaya MD [Primary Care Provider] - - Critical Care Note This patient required my direct & personal management of CC.: Yes Total Time (mins): 60 Critical Care Statement: This patient required my direct personal management to treat or rule out processes, the absence of which, could potentiallly result in sudden, clinically significant life or limb threatening deterioration. Attestation - Physician/ [place]NN Attestation Patient care was provided by Advanced Practice Provider:: No The physician spent face to face time with patient:: Yes Advanced Practice Provider documentation review:: Supervising physician onsite and consulted in the evaluation and care of this patient. The physician did have a face to face encounter with the patient. This chart was documented by the indicated scribe, (Nayeli Pace Scribe) and accurately reflects the services I performed and decisions made by me, Saad Hernandez MD, as attested by the provider's signature.
[2019-05-13] MEDS ORDERED: TYLENOL PO PRN (13:06)
[2019-05-13] MEDS ORDERED: TYLENOL PO ONE (13:10)
[2019-05-13] MEDS: ZYVOX 600 MG/D5W 600 MG/300 ML IVPB IV SCH ×2 (14:16→22:30)
[2019-05-13] MEDS ORDERED: NS 250 ML ONE (14:40)
--- NOTE | 2019-05-13 14:52 | HISTORY AND PHYSICAL ---
PRIMARY CARE PROVIDER: Dr. Jose Amaya. INSPECTION SUPERVISOR: Dr. Watt. MOBILE MANAGER: Dr. Mayberry. CHIEF COMPLAINT: Shortness of breath. HISTORY OF PRESENT ILLNESS: Ms. Leona Mosley is a 73-year-old, female with a medical history of coronary disease with a CABG in the past, along with aortic and mitral valve replacements in 1998, on chronic Coumadin therapy. They are mechanical. History of paroxysmal atrial fibrillation, but she is currently in sinus rhythm. History of diastolic heart failure. States that around 5:00 this morning, she had a sudden wakening with shortness of breath. There was no chest pain, but she did cough up some blood or pink-tinged phlegm. Denies fever, chills, nausea, vomiting, diarrhea. There are no other complaints. No worsening of lower extremity edema. White blood cells are significantly high at 35,000. She does appear to have had a little bit of a COPD exacerbation in addition to an acute heart failure. She is going to be ruled out for COVID-19. However, she is afebrile. She did have elevated troponins. Will trend those, and will monitor her in the ICU for now. She was originally on BiPAP. She has since been weaned down to nasal cannula, and if she can tolerate that, will continue to wean. She has already been started on diuresis. PAST MEDICAL HISTORY: 1. Coronary artery disease with coronary artery bypass grafting in 1998. 2. Aortic and mitral valve replacements in 1998, both mechanical and on Coumadin therapy. 3. Paroxysmal atrial fibrillation. 4. Hypertension. 5. Chronic hypokalemia and hyponatremia. 6. Diastolic heart failure. 7. History of small-bowel obstruction. 8. GI bleed in 06/2013. 9. Hypothyroidism. 10. History of respiratory failure and frequent pneumonia. 11. Last gastrointestinal bleed documented on 03/22/2019 when she was last here, and she had received blood at that time. PAST SURGICAL HISTORY: 1. Coronary artery bypass grafting, 1998. 2. Mitral and aortic valve replacements that are mechanical, 1998. 3. Hysterectomy. 4. Cholecystectomy. 5. Breast reconstruction. SOCIAL HISTORY: Lives at home. Denies tobacco, alcohol, or illicit drug use. She quit smoking in 1974, was a 2-pack per day smoker for 18 years prior to that. FAMILY HISTORY: Denies. ALLERGIES: Cefazolin, Reglan, streptomycin, sulfa, and tetracyclines. HOME MEDICATIONS: Not yet reconciled. REVIEW OF SYSTEMS: A 14-point review of systems was complete, and all were negative, except for those mentioned in the above HPI. PHYSICAL EXAMINATION: VITAL SIGNS: Temperature 97.2 degrees, heart rate 94, respiratory rate 22, blood pressure 123/63, she was 100% on BiPAP, 99% on 3 L. GENERAL: Ms. Leona Mosley is a 73-year-old, female. She is in no acute distress. She is able to answer questions appropriately. HEENT: Atraumatic, normocephalic. Pupils equal, round, reactive to light. Extraocular movements intact. Mucous membranes are moist. NECK: Trachea midline. CARDIOVASCULAR: S1, S2. Regular rate and rhythm. No rubs, gallops, murmurs. She has 1+ lower extremity pitting edema, +2 dorsalis and radial pulses. Mild JVD. Negative carotid bruits. PULMONARY: Crackles in the bases, very fine crackles. No accessory muscle use or work of breathing noted. She is tolerating nasal cannula. GI: Soft, nontender, nondistended. Positive bowel sounds x4. EXTREMITIES: Moves all extremities equally. Decreased range of motion. NEUROLOGIC: A and O x3. Follows commands. Sensory is intact. SKIN: Warm, dry, intact. LABORATORY DATA: White blood cells 35,000, hemoglobin 11, hematocrit 39, platelet count 482,000. INR is 1.15, PTT is 27.8. First set of ABGs on BiPAP when she was first placed showed pH 7.30, pCO2 of 71, PO2 of 80. The second set of ABGs after about 2 hours on BiPAP showed pH 7.40, pCO2 of 90, PO2 of 98, lactate 1.10, BiPAP 40%, 18/6. Sodium 147, potassium 3.9, BUN 13, creatinine 0.7, glucose 93, calcium 8.4. Bilirubin 0.30, AST 40, ALT 22. CK 103, troponin 187. ProBNP is 1752. Albumin is 4.1. Urinalysis: Trace protein, otherwise negative. MICROBIOLOGY: There is only 1 set of blood cultures they were able to obtain. IMAGING: Chest x-ray: Cardiomegaly with pulmonary edema. Most likely, there is an underlying pneumonia. There is a CT ordered. EKG: Normal sinus rhythm, rate is 94, QTc is 462. ASSESSMENT AND PLAN: 1. Acute on chronic diastolic, possibly systolic congestive heart failure. Last echocardiogram, she had normal ejection fraction, but she does have mechanical valves at this time that she is supposed to be on Coumadin for, for which she is actually subtherapeutic on her INR. She does take her medication as prescribed. She last took it last night. She has received a dose of intravenous Lasix in the emergency department, and feels like she is breathing better. She has actually been able to be weaned from bilevel positive airway pressure back down to nasal cannula. She describes the phlegm as being pink and frothy this morning when she was awoken at 5 a.m. Will get her scheduled on Lasix. Cardiology has been consulted, and will trend her cardiac enzymes. Her troponin was 187. Her proBNP was 1752. Repeat echocardiogram. She denies chest pain. 2. Most likely, there is a community-acquired pneumonia with a white count of 35,000. No signs of sepsis, but she will have full testing done, including Coronavirus Disease 2019. There is no fever. We are going to follow up with a CT of the chest, and she is on broad-spectrum antibiotics, and she will be on droplet isolation until Coronavirus Disease 2019 is ruled out. Pulmonary has been consulted. 3. Acute on chronic hypercarbic respiratory failure, chronic obstructive pulmonary disease exacerbation. The pH originally was 7.3. With bilevel positive airway pressure, it went up to 7.4. Carbon dioxide dropped from 71 down to 60. Will hold off on nebulizers for now. May add inhalers, but Pulmonary is following. 4. Hypothyroidism. Continue Synthroid once it is reconciled. 5. Hypertension. Waiting on all of her home medications to be reconciled. 6. History of gastrointestinal bleeding, but denies any symptoms at this time. She has been on Coumadin. She is subtherapeutic. Will do daily INRs, and once her home medications are reconciled, will resume her Coumadin. 7. Deep venous thrombosis prophylaxis. Sequential compression devices for now. Dictated by HYACINTH Medrano for Enmanuel Stark MD cc: HYACINTH Medrano MD
--- NOTE | 2019-05-13 16:21 | HISTORY AND PHYSICAL ---
ADDENDUM REPORT The patient seen and examined by me [id number]. All the laboratory, vital signs and images were reviewed. The patient presented to the emergency department due to shortness of breath that apparently started today in the morning. She denies any fever or chills or sick contact. She does not have any chest pain, but she woke up with shortness of breath today. She has a history of coronary artery disease with CABG, aortic and mitral valve replacement on chronic Coumadin, paroxysmal atrial fibrillation, but she seems to be in sinus rhythm. X-ray showed pulmonary edema and cardiomegaly, but she had a significant elevation of the white blood cell count at 35,000. Her white blood cell count has been high before but not that high, pCO2 is elevated as well. Kidney function seems to be stable. She is slightly hypernatremic. ProBNP seems to be about the same compared with last month, but troponins were elevated at 187, I do not think she is stable enough to do any kind of aggressive intervention at this moment, but we have consulted Cardiology Department to evaluate this patient, we order some blood cultures. I will ask for a sputum culture and urine culture as well. Due to her condition, it has been suggested to get a COVID-19 to rule out coronavirus infection. She has been placed on broad-spectrum antibiotics. We are going to try to diurese this patient. She does not seems to be dehydrated and actually she is overloaded. She has decreased breath sounds bilaterally with some crepitus and probably rhonchi answer, crackles at the bases. We will consult both Pulmonary Department and Cardiology Department. We will monitor this patient closely in the ICU. Her INR is subtherapeutic, she has been placed on the BiPAP machine at this moment and will continue with that. She was recently discharged last month on 03/27/2019 due to gastrointestinal bleed. Also she has a history of chronic obstructive pulmonary disease exacerbation. I will put this patient on pantoprazole twice a day given her history of gastrointestinal bleed. I do believe her blood thinner has been stopped because of that, even though at the discharge summary, they recommended to continue with Lovenox twice a day to overlap with Coumadin until the INR is therapeutic. So, I will put her on sequential compression devices, and I will let Cardiology Department to evaluate this patient to see if she needs anticoagulation. I agree with the rest of the nurse practitioner's assessment and plan. cc: Enmanuel Stark MD
[2019-05-13] MEDS: ZOFRAN IV PRN (16:39)
[2019-05-13] MEDS ORDERED: HEPARIN IV PRN (16:54)
[2019-05-13] MEDS ORDERED: HEPARIN IV ONE (16:54)
[2019-05-13] MEDS ORDERED: HEPARIN 25,000 UNITS/D5W 25,000 UNIT/250 ML IV.SOLN IV SCH (17:00)
--- NOTE | 2019-05-13 17:21 | Diag Imaging Result Doc PS360 ---
EXAM: CHEST-PORTABLE 05/13/2019 HISTORY: PICC placement TECHNIQUE: AP portable at 1702 COMMENT: There is a PICC line on the left the tip of which is not clearly identifiable. It is certainly not in the superior vena cava. There is patchy alveolar opacity particularly in the right lower lobe. This has improved since the previous study of this date at 0914. IMPRESSION: Improved pulmonary edema. Cardiomegaly. Electronically signed by Khari Strauss 05/13/2019 5:19 PM
[2019-05-13] MEDS: ZOSYN 3.375 GM in NS 50 ML IV SCH ×2 (17:22→21:30)
[2019-05-13] MEDS: PROTONIX IV SCH (17:23)
--- NOTE | 2019-05-13 17:41 | CARDIOLOGY CONSULTATION ---
DATE: 05/13/2019 CONSULTATION REQUESTED BY: Hospitalist service and the ER. REASON FOR CONSULTATION: The patient presented with acute dyspnea, congestive heart failure and possible pneumonia. HISTORY: Mrs. Mosley is an unfortunate 73-year-old female, patient of Dr. Watt and Jose Amaya, who came into the emergency room this morning, brought by the family because at about 5 o'clock in the morning, she was awakened by profound shortness of breath. That happened suddenly. In addition, she noted that she was coughing up some bloody sputum. Upon initial encounter, a chest x-ray was done and it showed cardiomegaly with pulmonary edema. An EKG shows sinus rhythm, rate 94 beats per minute with PVCs, intraventricular conduction delay with a possible lateral scar or anterolateral scar with diffuse repolarization abnormality, question of ischemia. Initial pro BNP level is 1752 pg/mL. Troponin high sensitivity 187 ng/L. Blood gases were done twice. The first one at 9:20 shows a pH of 7.30, pCO2 of 71 mm Hg, pO2 of 80 mmm Hg on a BiPAP 40%. Subsequent done at 11:40, which is 2 hours 20 minutes later, pH is 7.4, pCO2 60 mm Hg, pO2 is 98 mm Hg. The patient is on a BiPAP mask right now. She has difficulty talking because of the mask. She is quite uncomfortable. She is thirsty. She has pain in the back and some discomfort in the chest that is vague. At the onset of the dyspnea, she did not have any chest pain. The patient and the , with whom I spoke today, Jimmy Mosley, phone [phone], stated that there has been no obvious change in the way she felt for the past week or two. No changes in medications. She had been recently admitted to the hospital on 03/22/2019 through 03/27/2019 because of diagnosis of gastrointestinal bleeding, and at the time of discharge, she was thought to have hematochezia secondary to Coumadin-induced GI mucosal bleed. She also had some electrolyte imbalance. PAST MEDICAL HISTORY: Her past history is very extensive. She was diagnosed with aortic insufficiency and mitral regurgitation years ago as well as coronary heart disease. She underwent aortic valve replacement and mitral valve replacement along with coronary bypass surgery, I believe in 2008. [facility] [employer] Mechanical valves were used (19 mm aortic, 27 mm Mitral). The patient has had follow-up heart catheterization in 2013 that showed that her vein graft to the marginal system was patent, and she had mild lesion in the right coronary artery, normal LAD, normal left main, and some irregularities in the circumflex. Her valves had been checked on previous echocardiogram done in May 2018, that showed some elevation of the gradient across the aortic valve and normal gradient at the level of the mitral valve. The patient has been taking warfarin for many years. However, her INR has not been therapeutic. The patient has a history of GERD. She has been diagnosed with advanced COPD and has been on oxygen supplements for the past 3 to 4 years according to her . PAST SURGICAL HISTORY: Also includes cholecystectomy, multilevel spine surgery, implantation of spinal stimulators. She had hysterectomy, sinus surgery in the past, bone spurs. SOCIAL HISTORY: She is . She has no children. She has not been smoking recently.She is retired. FAMILY HISTORY: Noncontributory. HOME MEDICATIONS: At the time of this admission included 1. Cymbalta. 2. Furosemide. 3. Gabapentin. 4. Isosorbide mononitrate. 5. Hydrocodone. 6. Acetaminophen. 7. Losartan 50 mg daily. 8. Synthroid 50 mcg daily. 9. Metolazone 2.5 as directed. 10. Metoprolol 25 mg daily. 11. Protonix 40 mg twice a day. 12. Trazodone 150 mg at bedtime. 13. Warfarin 5 mg at bedtime. ALLERGIES TO: 1. Cefazolin. 2. Metoclopramide. 3. Streptomycin. 4. Sulfa drugs. 5. Tetracycline. REVIEW OF SYSTEMS: At this time is not obtainable because of the patient's respiratory distress, however, according to the , her exercise capacity is markedly limited by exertional dyspnea. In the past, she has been noted to have some carotid artery disease. She has suffered gastrointestinal bleeding before. She has some hearing deficit. She has had anemia. She has had atrial fibrillation also. PHYSICAL EXAMINATION: Vital Signs: Blood pressure is 130/59, temperature 99 degrees, pulse 87, respirations 20. General: Patient is awake, in distress with a BiPAP mask. HEENT: No obvious lesions. The patient is edentulous. Chest: Markedly diminished breath sounds bilaterally. Diminished excursion. Question of fine crackles at the bases. Heart: Heart sounds are regular with normal closing click of mitral valve. I do not hear well the closing click of the aortic valve. Abdomen: Soft. Extremities: Show good dorsalis pedis pulses bilaterally. There is trace edema. Neurologic: Follows commands. Moves 4 extremities. LABORATORY DATA: Blood work shows a white cell count of 35,300 with 10% bands, 74% neutrophils, eosinophils are 2%. INR was 1.15, which is "normal." Sodium 147, potassium 3.9, BUN 13, creatinine 0.7. IMPRESSION: 1. Patient presenting with acute respiratory distress with acute pulmonary edema with hypercarbic and hypoxemic respiratory failure. Etiology of this is probably cardiogenic plus concomitant pneumonia. Question of aspiration pneumonia given abnormalities noted at the level of the esophagus on previous CT of the chest . 2. History of aortic and mitral valve replacement with [employer] mechanical valves on long-term anticoagulation with warfarin. Patient is sub optimally anticoagulated. 3. History of coronary heart disease with a single vein graft to the obtuse marginal branch of the circumflex, patent as of 2013. 4. History of gastrointestinal bleeding. 5. History of hypertension and hyperlipidemia. 6. Advanced chronic obstructive pulmonary disease on home oxygen. 7. Elevation of HS troponin: likely indicating myocardial strain rather than primary myocardial ischemia. (supply vs. demand situation). RECOMMENDATION: At this time, we will probably put her on IV heparin to try to optimize her anticoagulation. We will use a weight based protocol to keep levels of anticoagulation 2 to 2-1/2 times baseline. We will consider increasing the dosage of warfarin as tolerated to achieve adequate INR that should be at least 2.5. We will trend her cardiac enzymes and we will continue to follow her during this admission. Prognosis is guarded. An echocardiogram has been requested as well as a CT scan of the thorax. Those tests are pending at this time. Because of her abnormal chest x- rays, the hospital has requested a Covid-19 screening. Further advice will follow. cc: Kendell Amos MD [facility]
[2019-05-13] MEDS: LASIX IV SCH (20:15)
[2019-05-13] MEDS: HEPARIN 25,000 UNITS/D5W 25,000 UNIT/250 ML IV.SOLN IV SCH (21:54)
--- NOTE | 2019-05-13 23:14 | PULMONOLOGY CONSULTATION ---
DATE: 05/13/2019 HISTORY OF PRESENT ILLNESS: Ms. Mosley is a 73-year-old female with a [id number] history for tobacco, history of aortic and mitral valve replacement on chronic anticoagulation, with prior aspiration pneumonia who woke up in the morning with acute shortness of breath. She reports she has some coughing with bloody sputum. She denied feeling sick prior to early this morning. She denies fevers, chills, GI complaints or fatigue. I evaluated her initially and she was on BiPAP and was having some nausea and the catheter was removed. PAST MEDICAL HISTORY: 1. COPD on chronic oxygen therapy. 2. Chronic atrial fibrillation. 3. Status post aortic and mitral valve replacements with single-vessel coronary artery bypass. 4. Chronic neck pain with neural stimulator seen on cervical spine. 5. Pulmonary hypertension. 6. Diastolic dysfunction. 7. Hypothyroidism. 8. History of small bowel obstruction. 9. Status post hysterectomy. 10. Status post cholecystectomy. 11. History of breast reconstruction. SOCIAL HISTORY: The patient has a [id number] history for tobacco. No alcohol use. She is . FAMILY HISTORY: Noncontributory to current presentation. REVIEW OF SYSTEMS: As noted in the HPI. PHYSICAL EXAMINATION: General: Reveals an obese white female in no distress. Vital Signs: BP 106/62, heart rate 24, respiratory rate 88, oxygen saturation 95%. HEENT: Pupils are equal and reactive. Oropharynx appears clear. Neck: Supple. Chest: Reveals crackles at the right base. Cardiac: S1, S2. Irregular rhythm. Abdomen: Obese. Extremities: Without edema. LABORATORY DATA: Chest x-ray #1 at 8:42 reveals cardiomegaly with asymmetric infiltrates right greater than left. Chest x-ray #2 performed 8 hours later reveals significant improvement in the right basilar infiltrate. White blood count 35,000, hemoglobin 11.3, platelet count 482,000. Troponin #1 is 187, troponin #2 is 264, troponin #3 is 252. IMPRESSION: A 73-year-old with: 1. Acute hypoxemic respiratory failure. 2. Minor hemoptysis. 3. Atrial fibrillation. 4. Status post aortic and mitral valve replacement. 5. Elevation in troponin levels. DISCUSSION: A 73-year-old with the problems outlined above. Initial chest x-ray shows significant infiltrates at the right base with leukocytosis raising the possibility of a community- acquired or aspiration pneumonia. However, she is rapidly improving. It is not clear that this is not pulmonary edema with a component of bleeding given her hemoptysis. Etiology for that would not be clear. She will be monitored for tachyarrhythmias. Any additional cardiac workup will be decided by Dr. Amos. PLAN: 1. Continue oxygen therapy. 2. Would cover with antibiotics pending improvement in white blood count with no evidence of fever. 3. Continue ICU monitoring. 4. Follow up chest x-ray tomorrow. cc: Hudson Pascal MD
[2019-05-14] MEDS: PROTONIX IV SCH ×2 (04:38→16:56)
[2019-05-14] MEDS: ZOSYN 3.375 GM in NS 50 ML IV SCH ×4 (04:38→21:00)
[2019-05-14 06:25] LABS: BASO# 0.03 X1000 (0.0-0.2); BASO% 0.2 % (0.0-0.8); EOS# 0.07 X1000 (0.0-0.7); EOS% 0.5 % (0.0-10.0); HEMATOCRIT 31.5 % (37.0-47.0); HEMOGLOBIN 8.8 g/dL (12.0-16.0); IMM GRAN# 0.03 X1000 (0.0-0.04); IMM GRAN% 0.2 % (0.0-0.5); LYMPH# 0.94 X1000 (1.2-3.4); LYMPH% 6.4 % (20.5-51.1); MCH 23.5 PG (27-31); MCHC 27.9 g/dL (33-37); MONO# 0.96 X1000 (0.11-0.59); MONO% 6.5 % (1.7-9.3); MPV 9.9 FL (7.4-10.4); NEUT# 12.68 X1000 (1.4-6.5); NEUT% 86.2 % (42.2-75.2); PLT 288 X1000 (130-400); RBC 3.75 XMIL (4.2-5.4); RDW 16.1 % (11.5-14.5); WBC 14.71 X1000 (4.8-10.8)
--- NOTE | 2019-05-14 06:35 | Diag Imaging Result Doc PS360 ---
CHEST-PORTABLE - 05/14/2019 INDICATION: sob COMPARISON: 05/13/2019 FINDINGS: Stable left PICC line. Stable cardiomegaly and pulmonary vascular congestion. Stable hazy infiltrates in the lung bases bilaterally. Stable small bilateral pleural effusions. IMPRESSION: No change from prior. Electronically signed by Wesley Ceron 05/14/2019 6:32 AM
[2019-05-14 06:42] LABS: AGAP 9; ALB/GLOB RATIO 1.3; ALBUMIN 3.5 g/dL (3.5-5.0); ALKALINE PHOSPHATASE 64 U/L (32-104); BUN 8 mg/dL (8-22); CALCIUM 8.2 mg/dL (8.8-10.2); CHLORIDE 96 mmol/L (98-107); COSMO 277; CREATININE 0.6 mg/dL (0.5-0.9); ESTIMATED GFR > 60; GLUCOSE 87 mg/dL (70-104); GOT 35 U/L (10-30); GPT 19 U/L (10-36); PHOSPHORUS 1.8 mg/dL (2.7-4.5); POTASSIUM 2.8 mmol/L (3.5-5.1); SODIUM 140 mmol/L (136-145); TCO2 35 mmol/L (25-35); TOTAL BILIRUBIN 0.38 mg/dL (0.20-1.00); TOTAL PROTEIN 6.1 g/dL (6.3-8.3)
[2019-05-14 07:10] LABS: INR 1.32; PROTIME 16.6 Seconds (11.0-16.0)
[2019-05-14] MEDS ORDERED: NS 250 ML ONE (07:27)
[2019-05-14] MEDS ORDERED: POTASSIUM PHOSPHATE 21 MMOL in NS 250 ML IV ONE (07:29)
--- NOTE | 2019-05-14 08:16 | EKG Report ---
Test Performed on : 05/14/2019 07:36:17 AM Test Reason : chest pain Blood Pressure : / mmHG Vent. Rate : 092 BPM Atrial Rate : 046 BPM P-R Int : 000 ms QRS Dur : 108 ms QT Int : 446 ms P-R-T Axes : 000 035 213 degrees QTc Int : 551 ms Normal sinus rhythm. Minimal voltage criteria for LVH, may be normal variant ST & T wave abnormality, consider inferior ischemia ST & T wave abnormality, consider anterolateral ischemia Prolonged QT Abnormal ECG When compared with ECG of 13-MAY-2019 11:51, (Unconfirmed) QT has lengthened Confirmed by Facundo De Santiago MD ([id number]) on 05/15/2019 3:38:40 PM
--- NOTE | 2019-05-14 08:32 | CARDIOLOGY PROGRESS NOTE ---
DATE: 05/14/2019 CHIEF COMPLAINT: Shortness of breath. SUBJECTIVE: Mrs. Mosley is feeling significantly better. Her chest x-ray does not show any significant improvement, however, her oxygen requirements have decreased. Now, she is on 3 L nasal cannula. She is having pain in the upper back and some heaviness in the chest. She said that this is chronic but it appears to be a little worse. She is trying not to lay completely flat because she says that the acid reflux bothers her. She said that 3 days prior to coming to the hospital, she had felt increasingly more short of breath. OBJECTIVE: Vital signs: Temperature today is 97.5 degrees, pulse 85, respirations are 22, blood pressure 121/66. General: The patient is awake, alert, follows commands, a little pale. HEENT: No significant jugular venous distention. Chest: Diminished breath sounds diffusely. Heart: Sounds are slightly irregular with closing click of mitral valve. The aortic valve is less appreciated. I do not hear murmurs. Abdomen: Nontender. Extremities: Showed obvious edema. She has palpable pulses. Neurologic exam: Follows commands, moves all 4 extremities. BLOOD WORK: Her C-reactive protein yesterday was elevated at 77.22 mg/L. High-sensitivity troponin has dropped to 179 from a peak of 264 ng/L. Her sedimentation rate was 33 mm/hour. Electrocardiogram this morning shows atrial fibrillation with diffuse repolarization abnormality. No new changes. IMPRESSION: 1. Patient who presented with acute respiratory distress hypoxemic and hypercapnic respiratory failure. This appears to be pulmonary edema, cardiogenic, plus aspiration pneumonia. 2. History of previous aortic and mitral valve replacement with mechanical valves on long-term anticoagulation with warfarin. 3. History of coronary heart disease, single vein graft to the obtuse marginal branch of the circumflex. 4. Suboptimal anticoagulation with warfarin. 5. Spurious elevation of troponin versus a very limited qvz-SK-saubiodli myocardial infarction. 6. History of advanced chronic obstructive pulmonary disease on home oxygen. RECOMMENDATIONS: At this time, we will keep her on heparin until her INR creeps up to adequate levels. She is presently on broad-spectrum antibiotics per the Hospitalist's service. A CT of the thorax has been requested for further evaluation. I believe the patient is a low likelihood for having the coronavirus-type infection. Her pneumonia more than likely has to do with aspiration mechanism. We will continue to follow her. cc: Kendell Amos MD
[2019-05-14] MEDS: LASIX IV SCH ×2 (09:13→22:00)
[2019-05-14] MEDS: ZYVOX 600 MG/D5W 600 MG/300 ML IVPB IV SCH ×2 (09:37→21:30)
--- NOTE | 2019-05-14 12:09 | PROGRESS NOTE ---
DATE: 05/14/2019 SUBJECTIVE: This patient is still complaining of generalized pain especially on her chest, as per the patient she has a history of fibromyalgia, she is not complaining of shortness of breath at this moment. She seems to be feeling better, chest x-ray about the same compared with yesterday with cardiomegaly and pulmonary vascular congestion and stable hazy infiltrates at the bases, some pleural effusion as well. OBJECTIVE: Vital signs: Temperature 99.1 degrees, pulse 96, respiratory rate 22, blood pressure 130/78, oxygen saturation 94% on 3 L of nasal cannula. HEENT: Head normocephalic, no trauma. PERRLA Neck: Supple. No JVD. No masses. Central trachea. Chest: Decreased breath sounds globally, she has some crackles at the bases especially on the right side. Cardiovascular: Irregular rhythm. Abdomen: Soft, obese, nontender, nondistended, no hepatosplenomegaly. Extremities: No edema. No clubbing. Neurological examination: The patient is awake, alert. She is following commands. LABORATORY: WBC 14.7, hemoglobin 8.8, hematocrit 31.5, platelets 288,000. Sodium 140, potassium 2.8, chloride 96, bicarbonate 35, BUN 8, creatinine 0.6, glucose 87, calcium 8.2, phosphorus 1.8, AST 35, ALT 19, alkaline phosphatase 64. Troponin 179. ASSESSMENT AND PLAN: 1. Acute hypoxemic and hypercarbic respiratory failure likely due to community-acquired pneumonia, but there is also a possibility of aspiration pneumonia. We will continue with antibiotics for now, will continue with same management, Pulmonary Department on board. 2. History of previous aortic and mitral valve replacement with mechanical valves, she has been placed on anticoagulation. Cardiology Department on board. We will continue until the INR is therapeutic. 3. History of coronary artery disease with elevated troponins, this could be multifactorial but could be also related to a [id number]-fnwfvrifp myocardial infarction, she has been placed on heparin drip. Cardiology Department on board. 4. Chronic obstructive pulmonary disease on home O2. Aware. 5. Paroxysmal atrial fibrillation. Continue with anticoagulation. 6. Hypothyroidism. I will put this patient back on levothyroxine. Given his current presentation, we have decided to ask for COVID-19, specimen has been sent, pending results. cc: Enmanuel Stark MD
--- NOTE | 2019-05-14 13:15 | Diag Imaging Result Doc PS360 ---
EXAM: CT THORAX W/O CONTRAST INDICATION: Resp failure, pneumonia TECHNIQUE: This exam was performed using automated exposure control, adjustment of mA or kV according to patient size, and/or use of iterative reconstruction technique. COMPARISON: 06/11/2018 FINDINGS: There is extensive patchy airspace consolidation involving the right lower lobe and, to a lesser degree, the right middle lobe and right upper lobe consistent with pneumonia. The distribution is similar to consolidation seen on the previous study last year. At the left lower lung zone, there is chronic pleural thickening and peripheral fibrosis that is similar to the previous study. There may also be a component of mild airspace consolidation at the superior aspect of the right lower lobe. There is trace loculated pleural fluid on the left and trace nonloculated pleural fluid on the right. The heart is mildly prominent. There are small shotty mediastinal lymph nodes that are nonspecific and stable. Limited views of the upper abdomen are essentially unremarkable. There is no evidence of acute osseous abnormality. IMPRESSION: 1.Multilobar pneumonia that is worst at the right lower lobe as detailed above. 2.Chronic pleural thickening and fibrosis at the periphery of the left lower lung zone. 3.Trace loculated pleural fluid collection on the left and trace nonloculated pleural fluid on the right. Electronically signed by Nick Trinidad 05/14/2019 1:12 PM
[2019-05-14] MEDS: ZOFRAN IV PRN (13:26)
--- NOTE | 2019-05-14 16:34 | ECHO REPORT ---
ORDER DATE: 05/13/2019 INTERPRETING PHYSICIAN: Kendell Amos MD INDICATION: Pulmonary edema, acute. Dyspnea. Patient with history of mechanical aortic and mitral valve replacement, [facility] C[facility]. Atrial fibrillation. M-MODE MEASUREMENTS: Left ventricle end diastole: 4.3 cm. Left ventricle end systole: 3 cm. Posterior wall: 1.1 cm. Interventricular septum: 1.1 cm. Left atrium: 3.3 cm. Aortic diameter: 3.2 cm. SUMMARY OF 2-DIMENSIONAL IMAGIN. This study is very difficult. Left ventricular systolic function appears to be preserved estimated roughly at 55% to 60%. There is atypical contractility of the septum. The left ventricle appears to be dynt-hk-ifeeyoymns enlarged. The left atrium appears to be moderately enlarged. 2. The mitral valve is a mechanical valve. The maximal gradient across the valve is between 15 mmHg to 20 mmHg and the mean gradient is about 8 mmHg to 10 mmHg. The gradient is increased. It may relate to increased flow. Color flow mapping is hard to energy systems engineer because of increased acoustic artifact. 3. The aortic valve is also very difficulty to discern because of the acoustic artifact. The maximum gradient across this valve is 83 mmHg and the mean gradient is 43 mmHg. The dimensionless index is 0.16 suggesting that there is obstruction to this valve. This is an abnormal gradient. 4. The pulmonic valve shows a mild degree of regurgitation. 5. The tricuspid valve shows a moderate degree of regurgitation with the pulmonary pressure estimated at 57 mmHg. 6. There is no pericardial effusion and no sign of thrombus. CONCLUSION: In summary, this study shows: 1. Preserved left ventricular diastolic function. 2. Abnormal gradient across the aortic valve suggesting obstruction to this valve. Dimensionless index is 0.16. 3. Probably normally functioning mitral valve, however, the gradient is also increased although not as much as the aortic valve. That may relate more to flow or an increased flow issue. 4. Pulmonary pressure is estimated at 57 mmHg. 5. Diastolic function is difficult to ascertain. There is a suggestion of impaired left ventricular relaxation. Clinical correlation is strongly recommended. Consideration may be given at obtaining a transesophageal echocardiogram to better assess the aortic valve. cc: MD Miya Rivers CRNP MTDD
--- NOTE | 2019-05-14 16:49 | PULMONOLOGY PROGRESS NOTE ---
DATE: 05/14/2019 SUBJECTIVE: The patient is awake and alert. She reports her breathing is better today than yesterday. She has had no additional hemoptysis. OBJECTIVE: Vital Signs: The patient has been afebrile for the last 24 hours. She has had some periodic episodes of tachycardia with heart rates approaching 150. Blood pressure 123/56, heart rate 96, respiratory rate 18, oxygen saturation 100% on 3 L per nasal cannula. HEENT: Pupils are equal and reactive. Oropharynx appears clear. Neck: Supple. Chest: Reveals crackles at the right anterior-posterior base. Abdomen: Soft. Extremities: Reveal trace edema. IMAGING: CT scan of the thorax reveals marked improvement in the right lung base when the chest x- ray yesterday is compared to the this workplace rehabilitation officer film. Cardiomegaly is noted. Chest x-ray this morning reveals cardiomegaly and pulmonary vascular congestion with possible small marginal improvement. LABORATORY DATA: White blood count has dropped from 35,000 to 14,700, hemoglobin has dropped from 11.3 to 8.1, platelet count 288,000. Sodium 140, potassium 2.8, chloride 96, bicarbonate 35, BUN 8, creatinine 0.6, phosphorus 1.8, magnesium 2.0. IMPRESSION: A 73-year-old with 1. Acute hypoxemic respiratory failure. 2. Minor hemoptysis. 3. Elevated troponin level. 4. Rapidly improving pneumonia in the right base. PLAN: 1. Continue current antibiotic regimen given improvement in the laboratory white blood count. 2. Reflux precautions. 3. Follow up chest x-ray tomorrow. cc: Hudson Pascal MD
[2019-05-14] MEDS: DESYREL PO SCH (20:00)
[2019-05-14] MEDS: HEPARIN 25,000 UNITS/D5W 25,000 UNIT/250 ML IV.SOLN IV SCH (23:57)
[2019-05-15] MEDS: HEPARIN 25,000 UNITS/D5W 25,000 UNIT/250 ML IV.SOLN IV SCH (01:20)
[2019-05-15] MEDS: ZOSYN 3.375 GM in NS 50 ML IV SCH ×4 (05:00→23:02)
[2019-05-15] MEDS: PROTONIX IV SCH ×2 (05:00→16:52)
[2019-05-15] MEDS: SYNTHROID PO SCH (06:00)
[2019-05-15 06:27] LABS: BASO# 0.02 X1000 (0.0-0.2); BASO% 0.2 % (0.0-0.8); EOS# 0.16 X1000 (0.0-0.7); EOS% 1.6 % (0.0-10.0); HEMATOCRIT 29.7 % (37.0-47.0); HEMOGLOBIN 8.5 g/dL (12.0-16.0); LYMPH# 0.73 X1000 (1.2-3.4); LYMPH% 7.2 % (20.5-51.1); MCH 23.5 PG (27-31); MCHC 28.6 g/dL (33-37); MONO# 0.78 X1000 (0.11-0.59); MONO% 7.6 % (1.7-9.3); MPV 10.1 FL (7.4-10.4); NEUT# 8.51 X1000 (1.4-6.5); NEUT% 83.4 % (42.2-75.2); PLT 257 X1000 (130-400); RBC 3.62 XMIL (4.2-5.4); RDW 15.8 % (11.5-14.5)
[2019-05-15 06:30] LABS: INR 1.1; PROTIME 14.4 Seconds (11.0-16.0)
[2019-05-15 06:53] LABS: AGAP 9; ALB/GLOB RATIO 1.3; ALBUMIN 3.5 g/dL (3.5-5.0); ALKALINE PHOSPHATASE 62 U/L (32-104); BUN 4 mg/dL (8-22); CALCIUM 8.2 mg/dL (8.8-10.2); CHLORIDE 93 mmol/L (98-107); COSMO 270; CREATININE 0.5 mg/dL (0.5-0.9); ESTIMATED GFR > 60; GLUCOSE 91 mg/dL (70-104); GOT 29 U/L (10-30); GPT 18 U/L (10-36); MAGNESIUM 1.7 mg/dL (1.5-2.7); SODIUM 137 mmol/L (136-145); TCO2 35 mmol/L (25-35); TOTAL BILIRUBIN 0.44 mg/dL (0.20-1.00); TOTAL PROTEIN 6.1 g/dL (6.3-8.3)
[2019-05-15 07:00] LABS: EOS 2 % (1-10); LYMPHS 4 % (21-51); SEGS 88 % (42-75)
[2019-05-15 07:16] LABS: POTASSIUM 2.3 mmol/L (3.5-5.1)
[2019-05-15] MEDS ORDERED: POTASSIUM CHLORIDE 40 MEQ/SWI 40 MEQ/100 ML IVPB IV ONE (07:45)
--- NOTE | 2019-05-15 08:17 | CARDIOLOGY PROGRESS NOTE ---
DATE: 05/15/2019 CHIEF COMPLAINT: Shortness of breath. SUBJECTIVE: Ms. Mosley is feeling much better today. She is sitting upright in a chair. She believes that this is pretty much the same condition she experienced over a year ago. She is not having any pain in the chest and specifically she is just having discomfort all over. She is a chronic opioid patient. PHYSICAL EXAMINATION: VITAL SIGNS: Blood pressure is 111/68, temperature 97 degrees, pulse 84, respirations 16. GENERAL: She is awake, alert, in no distress. HEENT: Unremarkable. CHEST: Reveals diminished breath sounds at bases with crepitus of the right base. HEART: Sounds are slightly irregular with normal closing click of mitral valve and I believe I can hear now the aortic valve. ABDOMEN: Nontender. EXTREMITIES: Show no evidence of edema. NEUROLOGICAL: Follows commands. Moves all 4 extremities. BLOOD WORK: Hemoglobin 8.5, hematocrit 29.7. PT is 14.4, INR 1.10. She is on heparin drip. Sodium is 137, potassium 2.3, BUN is 4, creatinine 0.5. Her CT of the chest has been reported by Radiology as showing basically the same pattern of lower pneumonia, worse at the right lower lobe with a chronic thickening of fibrosis at the periphery of the left lower lung zone and loculated pleural collection on the left and trace non- loculated pleural fluid on the right. I have reviewed the echocardiogram from yesterday that showed a significant obstruction to the aortic valve, dimension less index of 0.16. This appears to be a chronic feature and the important point is that this may limit her ability to compensate whenever she goes into significant metabolic stress. IMPRESSION: 1. Patient who presents with acute respiratory distress, hypoxemia and hypercarbic respiratory failure. This appears to be a combination of acute diastolic heart failure and aspiration pneumonia. 2. History of aortic and mitral valve replacement, both mechanical valves. 3. Suboptimal anticoagulation. INR was basically not therapeutic at all. 4. History of coronary heart disease with single vein bypass to obtuse marginal branch of the circumflex. 5. History of hypertension. 6. Advanced COPD on home oxygen. 7. Type 2 non-STEMI. 8. Patient is a chronic pain syndrome patient on long-term therapy with opioids. 9. Hypokalemia. RECOMMENDATIONS: At this time, I do not believe this patient has in any way, shape or form the COVID-19 infection. Her behavior is exactly the same as it was on a prior admission over a year ago. At some point, she should probably undergo transesophageal echocardiogram once she is stable from the respiratory viewpoint to evaluate the status of her aortic valve. We will replace potassium. Her potassium this morning is very low. We are going to give orders and we will resume her trazodone and her opioids as indicated by her preadmission schedule. We will continue to follow her. Thank you again for the opportunity to participate in her evaluation. cc: Kendell Amos MD MTDD
[2019-05-15] MEDS: POTASSIUM CHLORIDE 60 MEQ in NS 500 ML IV SCH ×2 (09:04→16:53)
[2019-05-15] MEDS: LASIX IV SCH (09:05)
[2019-05-15] MEDS: NORCO-10 PO SCH ×3 (09:05→20:40)
[2019-05-15] MEDS: ZYVOX 600 MG/D5W 600 MG/300 ML IVPB IV SCH ×2 (09:18→20:40)
--- NOTE | 2019-05-15 11:02 | Diag Imaging Result Doc PS360 ---
EXAM: CHEST-1 VIEW 05/15/2019 HISTORY: pneumonia TECHNIQUE: AP portable upright at 1033 COMMENT: Compared to 05/14/2019 there is improvement in the alveolar opacity in the lung bases particularly in the right lower lobe. IMPRESSION: Improved pulmonary edema and/or pneumonia. Electronically signed by Khari Strauss 05/15/2019 11:00 AM
--- NOTE | 2019-05-15 11:25 | PROGRESS NOTE ---
DATE: 05/15/2019 SUBJECTIVE: This patient seems to be doing better today compared with yesterday, especially she is not complaining of too much chest pain. Chest x-ray for me looks about the same compared with the previous one. We will continue with the same management. We have a negative balance of 1.3 liters. The potassium will be replaced. Continue with oxygen supplementation. White blood cell count is normal today. OBJECTIVE: Vital Signs: Temperature 98.4 degrees, pulse 88, respiratory rate 15, blood pressure 150/106, oxygen saturation 100% on 3 liters of nasal cannula. HEENT: Head normocephalic, no trauma. PERRLA. Neck: Supple. No JVD. No masses. Central trachea. Chest: Decreased breath sounds globally with some crackles and rhonchi at the bases. Cardiovascular: Irregular rhythm. Abdomen: Soft, nontender, nondistended. No hepatosplenomegaly. Extremities: No edema, no clubbing, no cyanosis. Neurological examination: The patient is awake, alert. She is following commands. LABORATORY: WBC 10.2, hemoglobin 8.5, hematocrit 29.7, platelets 257. PT 14.4, INR 1.1, PTT 64. Sodium 137, potassium 2.3, chloride 93, bicarbonate 35. BUN 4, creatinine 0.5, glucose 91, calcium 8.2, albumin 3.5. ASSESSMENT AND PLAN: 1. Acute hypoxemic and hypercarbic respiratory failure likely due to community-acquired pneumonia, also possibility of aspiration pneumonia. Continue with broad-spectrum antibiotics. Continue with same management. White blood cell count trending down. Pulmonary Department on board. 2. History of previous aortic and mitral valve replacement with mechanical valves. She has been placed on anticoagulation by Cardiology Department. We will continue with same treatment. For now, she is on heparin drip. 3. History of coronary artery disease with elevated troponins. This could be multifactorial. Cardiology on board. No chest pain today. 4. Chronic obstructive pulmonary disease on home oxygen, aware. 5. Paroxysmal atrial fibrillation. Continue with anticoagulation. 6. Hypothyroidism. Continue with levothyroxine. 7. Chronic pain. Continue with treatment that she has been getting at home. Likely this is just community-acquired pneumonia versus aspiration pneumonia. I do not think this patient has the Coronavirus Disease 2019, but it has been requested already. We will monitor for now. I think this patient is stable enough to go to the floor. We will check with Cardiology. cc: Enmanuel Stark MD
[2019-05-15] MEDS ORDERED: LASIX IV ONE (19:17)
--- NOTE | 2019-05-15 19:34 | PULMONOLOGY PROGRESS NOTE ---
DATE: 05/15/2019 SUBJECTIVE: The patient is awake, alert, and conversant. She feels significantly better today. She has been having a large urinary output today. OBJECTIVE: Vital Signs: The patient has been afebrile for the last 24 hours. Blood pressure 149/60, heart rate 91, respiratory rate 22, oxygen saturation 100%. HEENT: Pupils are equal and reactive. Oropharynx is clear. Neck: Is supple. Chest: Reveals crackles in the lung bases. Cardiac: S1, S2. Abdomen: Is soft. Extremities: Reveal trace edema. LABORATORIES: Sodium 137, potassium 2.3, chloride 93, bicarbonate 35, BUN 4, creatinine 0.5, calcium 8.2, magnesium 1.7. Chest x-ray a reveals near-complete clearing of the right lower lobe. Microbiology reveals no new data. IMPRESSION: A 73-year-old with: 1. Acute hypoxemic respiratory failure. 2. Minor hemoptysis. 3. Elevated troponin level. 4. Rapidly improving consolidation of the right lung base. DISCUSSION: A 73-year-old with problems outlined above. The right base is rapidly improving. The patient's blood pressure continues to climb, and she is now seeing systolics in the 180s. Differential should be expanded to include acute diastolic heart failure/hypertensive crisis. PLAN: 1. Continue current antibiotic regimen but consider discontinuing soon now that she has normalized her white blood count and her chest x-ray is clearing. 2. Continue reflux precautions. 3. Continue diuresis as tolerated. cc: Hudson Pascal MD
[2019-05-15] MEDS ORDERED: HEPARIN IV ONE (19:56)
[2019-05-15] MEDS: DESYREL PO SCH (20:39)
[2019-05-15] MEDS ORDERED: KLOR-CON PO ONE (21:00)
[2019-05-16] MEDS: HEPARIN 25,000 UNITS/D5W 25,000 UNIT/250 ML IV.SOLN IV SCH (02:06)
[2019-05-16] MEDS ORDERED: HEPARIN 25,000 UNITS/D5W 25,000 UNIT/250 ML IV.SOLN IV SCH ×2 (02:11→12:44)
[2019-05-16] MEDS ORDERED: LASIX IV ONE (04:00)
[2019-05-16] MEDS: NORCO-10 PO SCH ×3 (05:05→20:05)
[2019-05-16] MEDS: SYNTHROID PO SCH ×2 (05:05→06:22)
[2019-05-16] MEDS: PROTONIX IV SCH ×2 (05:06→20:54)
[2019-05-16] MEDS: SODIUM CHLORIDE 0.9% INJ SCH (05:06)
[2019-05-16] MEDS: ZOSYN 3.375 GM in NS 50 ML IV SCH ×3 (05:06→20:06)
[2019-05-16 05:37] LABS: BASO# 0.03 X1000 (0.0-0.2); BASO% 0.5 % (0.0-0.8); EOS# 0.25 X1000 (0.0-0.7); EOS% 3.9 % (0.0-10.0); HEMATOCRIT 28.4 % (37.0-47.0); LYMPH# 0.69 X1000 (1.2-3.4); LYMPH% 10.7 % (20.5-51.1); MCH 23.3 PG (27-31); MCHC 28.2 g/dL (33-37); MCV 82.6 FL (81-99); MONO# 0.55 X1000 (0.11-0.59); MONO% 8.5 % (1.7-9.3); MPV 9.6 FL (7.4-10.4); NEUT# 4.92 X1000 (1.4-6.5); NEUT% 76.4 % (42.2-75.2); PLT 253 X1000 (130-400); RBC 3.44 XMIL (4.2-5.4); RDW 15.7 % (11.5-14.5); WBC 6.44 X1000 (4.8-10.8)
[2019-05-16 05:42] LABS: INR 1.17; PROTIME 15.1 Seconds (11.0-16.0)
[2019-05-16 06:06] LABS: AGAP 8; ALKALINE PHOSPHATASE 59 U/L (32-104); BUN 4 mg/dL (8-22); CALCIUM 8.1 mg/dL (8.8-10.2); CHLORIDE 102 mmol/L (98-107); COSMO 282; CREATININE 0.6 mg/dL (0.5-0.9); ESTIMATED GFR > 60; GLUCOSE 94 mg/dL (70-104); GOT 24 U/L (10-30); GPT 15 U/L (10-36); MAGNESIUM 1.9 mg/dL (1.5-2.7); SODIUM 143 mmol/L (136-145); TCO2 33 mmol/L (25-35); TOTAL BILIRUBIN 0.33 mg/dL (0.20-1.00)
--- NOTE | 2019-05-16 07:30 | Diag Imaging Result Doc PS360 ---
EXAM: CHEST-PORTABLE 05/16/2019 HISTORY: abnormal exam TECHNIQUE: AP portable at 0602 COMMENT: There are sternotomy wires. There is pleural thickening on the left. The heart size is slightly enlarged. Considering differences in technique there has been no appreciable change since 05/15/2019. There has definitely been improvement in the pulmonary edema which was present on 05/14/2019. IMPRESSION: Stable chest. Electronically signed by Khari Strauss 05/16/2019 7:28 AM
[2019-05-16] MEDS ORDERED: POTASSIUM CHLORIDE 40 MEQ/SWI 40 MEQ/100 ML IVPB IV ONE (08:00)
--- NOTE | 2019-05-16 11:43 | CARDIOLOGY PROGRESS NOTE ---
DATE: 05/16/2019 CHIEF COMPLAINT: Shortness of breath. SUBJECTIVE: Ms. Mosley is sitting up in the bed. She is feeling much better today and says that her shortness of breath is much better. She denies any chest pain and her cough has improved. She does just have some chronic body aches just from having to be in the bed for extended periods of time. No new complaints at this time. OBJECTIVE: Vital Signs: Blood pressure 172/45, heart rate 93, temperature 98.7 degrees Fahrenheit, her weight is 152 pounds which is stable, and her oxygen saturation is around 93% on nasal cannula. It ranges from 93-96% on nasal cannula at a flow rate of 2 L per minute. Her intake/output is -2847 mL. General: She is awake, alert, and pleasant, with no acute distress. HEENT: Normocephalic, atraumatic. Pupils equally reactive to light. Neck: Supple. No obvious JVD. Chest: Reveals diminished breath sounds bilaterally at the bases but there is no obvious wheezing, rhonchi, or rales at this time. Heart: Sounds more regular today with mild tachycardia at times but it also can sound irregular at times as well. Abdomen: Soft, nontender, nondistended. There are positive bowel sounds. Extremities: Warm. No edema noted, just some mild brawny changes. Neurologic: Alert and oriented x3. No acute deficits. Blood Work: Chemistry: Her sodium is 143, her potassium is 3.0, her BUN is 4, her creatinine is 0.6, and her magnesium level is 1.9. Her white blood cell count is 6.44, with a hemoglobin of 8.0, a hematocrit of 28.4, and platelets of 253,000. Her PT is 15.1 and her INR is 1.17. Imaging: Chest x-ray, portable done today revealed pleural thickening on the left. There has definitely been improvement in the pulmonary edema which was present on 05/14/2019. IMPRESSION: 1. This patient has acute respiratory distress, hypoxia, and hypercarbic respiratory failure. She appears to be a combination of acute diastolic heart failure and aspiration pneumonia. 2. Hypokalemia, which is being monitored closely. The patient has received Klor-Con 40 mEq by mouth x1 dose as well as intravenous 40 mEq over several hours. 3. History of aortic and mitral valve replacement, both mechanical valves. The patient is currently on a heparin drip and we are monitoring closely. At some point, she will need to undergo a transesophageal echocardiogram once she is more stable from a respiratory standpoint. 4. Suboptimal anticoagulation. Her INR continues to be subtherapeutic and will continue on heparin at this time. Monitor her hemoglobin and hematocrit closely. 5. History of coronary heart disease with a single vein bypass to the obtuse marginal branch of the circumflex. 6. History of hypertension. 7. Advanced chronic obstructive pulmonary disease, on home oxygen. 8. Type 2 non-ST elevation myocardial infarction. RECOMMENDATIONS: At this time, we will continue the patient in isolation while we await for her Covid-19 infection. However, it is not felt that she will likely be positive for this test as she presented with similar symptoms that she has now over a year ago. Next, we will make sure to replace her potassium and monitor that closely. We will also monitor her hemoglobin and hematocrit closely, and monitor for any bleeding. At some point, she will need to undergo a transesophageal echocardiogram once she is more stable from a respiratory standpoint, to evaluate the status of her aortic valve and mitral valve. Dictated by KARLA Jacques for Kendell Amos MD I Agree with above assessment and plan. cc: KARLA Jacques MD MTDD
[2019-05-16] MEDS: LASIX IV SCH ×2 (11:52→20:05)
[2019-05-16] MEDS: ZYVOX 600 MG/D5W 600 MG/300 ML IVPB IV SCH ×2 (11:53→20:54)
[2019-05-16] MEDS ORDERED: HEPARIN IV ONE ×3 (12:40→23:17)
--- NOTE | 2019-05-16 13:09 | PROGRESS NOTE ---
DATE: 05/16/2019 SUBJECTIVE: The patient seems to be doing a lot better compared with yesterday. She is not complaining of too much chest pain or shortness of breath, chest x-ray today showed pleural thickening on the left. The heart size is slightly enlarged, improvement of the pulmonary edema which was present on 05/14/2019. I will continue following the recommendations of Cardiology Department and Pulmonary Department, the patient is on isolation to rule out COVID-19 but I do not believe this patient has been infected with this virus. PHYSICAL EXAMINATION: Temperature 98.7 degrees, pulse 93, respiratory rate 16, blood pressure 172/45, oxygen saturation 93 on 2 L of nasal cannula. HEENT: Head normocephalic, no trauma. PERRLA. Neck is supple. No JVD. No masses. Central trachea. Chest: Decreased breath sounds globally with some crackles and rhonchi at the bases. Cardiovascular: Irregular rhythm. Abdomen: Soft, nontender, nondistended. No hepatosplenomegaly. Extremities: No edema, no clubbing, no cyanosis. Neurological: The patient is awake, alert. She is oriented. LABORATORY: WBC 6.4, hemoglobin 8, hematocrit 28.4, platelets 253,000. Sodium 143, potassium 3, chloride 102, bicarbonate 33, BUN 4, creatinine 0.6, glucose 94, calcium 8.1, albumin 3. ASSESSMENT AND PLAN: 1. Acute hypoxemic and hypercarbic respiratory failure likely due to community-acquired pneumonia and/or aspiration pneumonia. Continue with broad-spectrum antibiotics. Continue with same management. White blood cell count normalized. Pulmonary Department on board. She is much better. 2. History of previous aortic and mitral valve replacement with mechanical valves, she has been placed on anticoagulation, heparin drip by Cardiology Department, at some point she needs to get a esophageal echocardiogram. 3. History of coronary artery disease with elevated troponins, multifactorial. Cardiology on board. No chest pain at this moment. 4. COPD on home O2, aware. 5. Paroxysmal atrial fibrillation. Continue with anticoagulation. 6. Hypothyroidism. Continue levothyroxine. 7. Chronic pain, as per the patient she has fibromyalgia. Continue with home medications. 8. Likely this patient has community-acquired pneumonia versus aspiration pneumonia. I do not think this patient has coronavirus, but the COVID-19 has been requested, we will continue to monitor for now. At some point she needs to get an esophageal echocardiogram, cardiology department following this patient closely. 9. Potassium level is low. I will replace it. cc: Enmanuel Stark MD
[2019-05-16] MEDS: DESYREL PO SCH (20:54)
[2019-05-16] MEDS ORDERED: COUMADIN PO ONE (21:00)
[2019-05-16] MEDS ORDERED: KLOR-CON PO ONE (21:00)
--- NOTE | 2019-05-16 22:40 | PULMONOLOGY PROGRESS NOTE ---
DATE: 05/16/2019 SUBJECTIVE: The patient is awake and alert. She reports she feels great. She is without specific complaints. OBJECTIVE: Vital Signs: The patient has been afebrile for the last 24 hours. Blood pressure 161/55, heart rate 90, respiratory rate 16, oxygen saturation 98% on 2 L. HEENT: Pupils are equal and reactive. Oropharynx appears clear. Neck: Supple. Chest: Reveals good air entry bilaterally. Cardiac: S1-S2. Abdomen: Soft. Extremities: Without edema. LABORATORIES: Chest x-ray reveals clearing of infiltrates. IMPRESSION: A 73-year-old with 1. Acute hypoxemic respiratory failure. 2. Minor hemoptysis. 3. Hypertension. 4. Resolving consolidation of the right lung base. PLAN: 1. Consider discontinuing antibiotics with the clearing of infiltrates. 2. Follow with diuretics to ensure she does not become prerenal. 3. DANIELE planned, as noted by Cardiology. cc: Hudson Pascal MD
[2019-05-17] MEDS: ZOSYN 3.375 GM in NS 50 ML IV SCH ×4 (02:14→23:05)
[2019-05-17] MEDS: HEPARIN 25,000 UNITS/D5W 25,000 UNIT/250 ML IV.SOLN IV SCH ×3 (02:15→23:51)
[2019-05-17] MEDS: NORCO-10 PO SCH ×3 (02:16→16:59)
[2019-05-17] MEDS: SYNTHROID PO SCH ×2 (05:02→07:22)
[2019-05-17 05:13] LABS: BASO# 0.06 X1000 (0.0-0.2); EOS# 0.31 X1000 (0.0-0.7); EOS% 5.1 % (0.0-10.0); HEMATOCRIT 29.7 % (37.0-47.0); HEMOGLOBIN 8.6 g/dL (12.0-16.0); IMM GRAN# 0.02 X1000 (0.0-0.04); IMM GRAN% 0.3 % (0.0-0.5); LYMPH# 1.27 X1000 (1.2-3.4); LYMPH% 20.8 % (20.5-51.1); MCH 23.4 PG (27-31); MCV 80.9 FL (81-99); MONO# 0.54 X1000 (0.11-0.59); MONO% 8.8 % (1.7-9.3); MPV 9.3 FL (7.4-10.4); NEUT# 3.92 X1000 (1.4-6.5); PLT 278 X1000 (130-400); RBC 3.67 XMIL (4.2-5.4); RDW 15.7 % (11.5-14.5); WBC 6.12 X1000 (4.8-10.8)
[2019-05-17 05:22] LABS: AGAP 10; BUN 5 mg/dL (8-22); CALCIUM 8.7 mg/dL (8.8-10.2); CHLORIDE 96 mmol/L (98-107); COSMO 271; CREATININE 0.7 mg/dL (0.5-0.9); ESTIMATED GFR > 60; GLUCOSE 96 mg/dL (70-104); SODIUM 137 mmol/L (136-145); TCO2 31 mmol/L (25-35)
[2019-05-17 05:34] LABS: INR 1.09; PROTIME 14.3 Seconds (11.0-16.0)
[2019-05-17] MEDS: PROTONIX IV SCH (10:38)
[2019-05-17] MEDS: ZYVOX 600 MG/D5W 600 MG/300 ML IVPB IV SCH ×2 (10:38→20:15)
[2019-05-17] MEDS: LASIX IV SCH ×2 (10:38→20:16)
[2019-05-17] MEDS: SODIUM CHLORIDE 0.9% INJ SCH (10:39)
--- NOTE | 2019-05-17 14:46 | PULMONOLOGY PROGRESS NOTE ---
DATE: 05/17/2019 SUBJECTIVE: The patient is awake and alert. She states that she is feeling much better today. OBJECTIVE: Vital Signs: Blood pressure is 122/61 with a heart rate of 87, respirations 18, temperature 98.2 degrees oral with O2 saturations that are 96% to 100% on 2 L nasal cannula. Eyes: Pupils are equal, round, react to light. EOMs are intact. Sclerae are anicteric. HEENT: Head is normocephalic, atraumatic. Mucous membranes are moist. Neck: Supple with trachea midline. Cardiovascular: Regular rate and rhythm. S1 and S2 are appreciated. No lower extremity edema. Extremities: Calves are nontender bilateral. Peripheral pulses palpable x4 extremities. Pulmonary: Breath sounds are clear. Chest rises and falls symmetrically with respiration. Chest wall is nontender to palpation. Gastrointestinal: Abdomen is soft, nontender, nondistended with bowel sounds in all four quadrants. Neurologic: She is alert and oriented. LABS: WBC is 6.1 with hemoglobin 8.6, hematocrit 29.7, and platelets of 278,000. Sodium 137, potassium 3, BUN 5, creatinine 0.7 with a glucose of 96. INR is 1.09. IMPRESSION: This is a 73-year-old female with 1. Acute hypoxemic respiratory failure. 2. Minor hemoptysis. 3. Hypertension. 4. Resolving consolidation the right lung base. PLAN: 1. Consider discontinuing antibiotics with the clearing of infiltrates. 2. Follow diuretics and I and O to be sure that the patient does not become prerenal. 3. DANIELE as per cardiology. Dictated by HYACINTH Gonzáles for Hudson Pascal MD cc: HYACINTH Gonzáles MD
--- NOTE | 2019-05-17 15:31 | PROGRESS NOTE ---
DATE: 05/17/2019 SUBJECTIVE: Patient reports feeling fine. Denies any fever or chills. OBJECTIVE: Vital Signs: Temperature degrees 98.2, heart rate 87, respiratory rate 18, blood pressure 122/61, O2 saturation 97% on room air. General: This is a 73-year-old female lying in bed, in no acute distress. Cardiovascular: S1, S2 heard. No murmurs, gallops, or rubs. Regular rate and rhythm. Respiratory: Decreased breath sounds globally with minimal crackles noted in both pulmonary bases as well as rhonchi. The patient is not using any accessory muscles or having work of breathing. Abdomen: Soft. Nontender to palpation. Bowel sounds present. No organomegaly. Extremities: No clubbing, cyanosis, or edema. Peripheral pulses present in both legs. Neurological: The patient is alert, oriented x3. Moves 4 extremities. LABORATORY DATA: Reviewed and remarkable for an INR 1.09. Potassium 3.0. ASSESSMENT AND PLAN: 1. Acute hypoxemic and hypercapnic respiratory failure due to aspiration pneumonia. We will continue with current antibiotic management. White cell count is normal. We will continue to monitor. 2. History of previous aortic and mitral valve replacement with mechanical valves. The patient is on heparin drip. At this point, I am not quite sure if Cardiology wants to do transesophageal echo. 3. History of coronary disease with elevated troponins multifactorial. Cardiology following this patient. Not complaining of any chest pain. 4. Chronic obstructive pulmonary disease on home oxygen. Aware. We will continue to monitor. 5. Paroxysmal atrial fibrillation. We will continue with current anticoagulation. 6. Chronic pain. Aware. We will continue home medications. 7. Community-acquired pneumonia versus Coronavirus Disease-19 infection. Patient has been tested for Coronavirus Disease-19. We are awaiting results. We will continue to monitor. Most likely if patient okay, we can switch heparin drip to Lovenox 1 mg/kg every 12 hours while INR reaches 2.5 to 3.5. cc: Leeroy Waterman MD
[2019-05-17] MEDS ORDERED: COUMADIN PO ONE ×2 (16:12→21:00)
--- NOTE | 2019-05-17 16:42 | CARDIOLOGY PROGRESS NOTE ---
DATE: 05/17/2019 CHIEF COMPLAINT: Shortness of breath. SUBJECTIVE: Ms. Mosley is feeling better today. She is sitting upright. She is in a very good mood. She is hoping to be discharged tomorrow. She denies having any pain. OBJECTIVE: Vital Signs: Blood pressure is 140/79, temperature 98 degrees, pulse 89, and respirations 20. General: She is awake, alert, and in no distress. HEENT: Unremarkable. Respiratory: The chest sounds very clear to auscultation and percussion. Cardiac: Heart sounds are regular and rhythmic with normal closing click of the aortic and mitral valves. Abdomen: The abdomen is nontender. Extremities: The extremities show slightly decreased pulses. No edema. Neurological: Follows commands and moves all extremities. LABORATORY DATA: Her INR today is 1.09. PTT is 74.3. Hemoglobin is 8.6 and hematocrit 29.7. Sodium is 137, potassium 3, BUN 5, and creatinine 0.7. IMPRESSION: 1. Patient who presented with acute respiratory distress and pulmonary edema. This was probably a combination of acute diastolic heart failure and aspiration pneumonia. 2. Hypokalemia. 3. Aortic and mitral valve replacement with mechanical valves with suboptimal anticoagulation. 4. Coronary heart disease with a prior bypass to the obtuse marginal branch of the circumflex. 5. Question of non-ST myocardial infarction type 2. 6. Advanced chronic obstructive pulmonary disease on home oxygen. 7. Hypertension. RECOMMENDATIONS: At this time we will continue to push warfarin on her. We need to get the INR to a therapeutic range before discontinuation of parenteral heparin or Lovenox. If the patient wishes to go home tomorrow we need to ensure that she takes Lovenox shots with her and we will continue to monitor her progress at the office. Thank you again for the opportunity to participate in her evaluation. cc: Kendell Amos MD
[2019-05-17] MEDS: PROTONIX PO SCH (20:16)
[2019-05-17] MEDS: DESYREL PO SCH (20:16)
[2019-05-18] MEDS: NORCO-10 PO SCH ×2 (04:37→11:07)
[2019-05-18] MEDS: SYNTHROID PO SCH ×2 (05:40→06:55)
[2019-05-18] MEDS: PROTONIX PO SCH ×2 (05:40→06:55)
[2019-05-18] MEDS: ZOSYN 3.375 GM in NS 50 ML IV SCH ×2 (05:40→11:07)
[2019-05-18 06:29] LABS: BASO# 0.06 X1000 (0.0-0.2); EOS# 0.32 X1000 (0.0-0.7); EOS% 5.2 % (0.0-10.0); HEMOGLOBIN 9.1 g/dL (12.0-16.0); LYMPH# 1.11 X1000 (1.2-3.4); LYMPH% 18.1 % (20.5-51.1); MCH 23.4 PG (27-31); MCHC 29.4 g/dL (33-37); MCV 79.7 FL (81-99); MONO# 0.48 X1000 (0.11-0.59); MONO% 7.8 % (1.7-9.3); MPV 9.3 FL (7.4-10.4); NEUT# 4.15 X1000 (1.4-6.5); NEUT% 67.9 % (42.2-75.2); PLT 266 X1000 (130-400); RBC 3.89 XMIL (4.2-5.4); RDW 15.5 % (11.5-14.5); WBC 6.12 X1000 (4.8-10.8)
[2019-05-18 06:33] LABS: INR 1.27; PROTIME 16.1 Seconds (11.0-16.0)
[2019-05-18 06:54] LABS: AGAP 13; BUN 6 mg/dL (8-22); CALCIUM 9.5 mg/dL (8.8-10.2); CHLORIDE 93 mmol/L (98-107); COSMO 270; CREATININE 0.7 mg/dL (0.5-0.9); ESTIMATED GFR > 60; GLUCOSE 102 mg/dL (70-104); POTASSIUM 3.2 mmol/L (3.5-5.1); SODIUM 136 mmol/L (136-145); TCO2 30 mmol/L (25-35)
[2019-05-18] MEDS: ZYVOX 600 MG/D5W 600 MG/300 ML IVPB IV SCH (09:04)
[2019-05-18] MEDS: LASIX IV SCH (09:05)
[2019-05-18] MEDS ORDERED: KLOR-CON PO ONE (11:42)
[2019-05-18] MEDS: HEPARIN 25,000 UNITS/D5W 25,000 UNIT/250 ML IV.SOLN IV SCH (12:11)
[2019-05-18] MEDS ORDERED: LOVENOX 1 MG/KG SUBQ SCH (12:30)
[2019-05-18 12:44] VITALS: BP 153/51
--- NOTE | 2019-05-18 18:39 | PULMONOLOGY PROGRESS NOTE ---
DATE: 05/18/2019 SUBJECTIVE: The patient states that she is feeling fine. She is hoping to go home today. OBJECTIVE: Vital Signs: Blood pressure is 169/68 with heart rate of 93, respirations 18. Temperature is 97.6 oral with O2 saturations that are 95% to 96% on room air and 99% to 100% on 2 L nasal cannula. Of note, the patient does have home O2. Cardiovascular: Regular rate and rhythm S1, S2 appreciated. Pulmonary: Decreased breath sounds throughout. Chest rise and fall symmetric with respiration. Gastrointestinal: Abdomen is soft, nontender, nondistended. Bowel sounds in all 4 quadrants. Extremities: No clubbing, cyanosis, or edema. Peripheral pulses palpable bilaterally. Calves are nontender. Neurologic: She is alert oriented x3. ASSESSMENT: This is a 73-year-old female with: 1. Acute hypoxemic hypercapnic respiratory failure due to aspiration pneumonia. This is resolved. 2. History of previous aortic and mitral valve replacement with mechanical valves. 3. History of coronary artery disease with elevated troponin. 4. Minor hemoptysis, resolved. 5. Hypertension. 6. Resolving consolidation in right lung base. PLAN: 1. Recommend discontinuation of antibiotics with clearing of infiltrates. 2. Continue to follow input and output and diuretics. 3. Transesophageal echocardiogram and further treatment cardiac nicholas per Cardiology. Dictated by HYACINTH Gonzáles for Hudson Pascal MD cc: HYACINTH Gonzáles MD
[2019-05-18] MEDS ORDERED: LOVENOX SUBQ SCH (21:00)
--- NOTE | 2019-05-18 21:35 | DISCHARGE SUMMARY ---
ADMISSION DATE: 05/13/2019 DISCHARGE DATE: 05/18/2019 ADMISSION DIAGNOSES: 1. Ercxn-ab-yqflnxw diastolic, possibly systolic, congestive heart failure. 2. Most likely there is a community-acquired pneumonia, with a white count of 35,000. No signs of sepsis. Had testing of Coronavirus Disease 2019 performed which was negative. 3. Lwzlv-yy-llxtisy hypercarbic respiratory failure, with chronic obstructive pulmonary disease exacerbation. 4. Hypothyroidism. 5. Hypertension. 6. History of gastrointestinal bleed. Denies symptoms at this time. DISCHARGE DIAGNOSES: 1. Acute hypoxemic and hypercapnic respiratory failure secondary to aspiration pneumonia. 2. History of previous aortic and mitral valve replacement, mechanical valves; was on heparin drip. 3. History of coronary artery disease with elevated troponins, which is multifactorial. 4. Chronic obstructive pulmonary disease, on home oxygen. 5. Paroxysmal atrial fibrillation. 6. Chronic pain. 7. Community-acquired pneumonia versus Coronavirus Disease 2019 infection. It looks like we are actually still waiting for results. 8. The patient was screened for Coronavirus Disease 2019 and was negative. 9. Type 2 [id number]-[id number] myocardial infarction. CONSULTATIONS: Dr. Amos for acute CHF, and Dr. Pascal for respiratory failure. HOSPITAL COURSE: Ms. Leona Mosley is a 73-year-old female with medical history of CABG, aortic and mitral valves back in 1998. She was on chronic Coumadin therapy with history of paroxysmal atrial fibrillation, but was in sinus rhythm when she presented. She had a sudden awakening moment around 5:00 in the morning on the day she presented with shortness of breath. There was no chest pain, but she did cough up some blood or pink-tinged phlegm. Denied fever, chills, nausea, vomiting or diarrhea. There were no other complaints. Her lower extremity edema had not worsened; however, she did have an elevated white blood cell count at 35,000, COPD exacerbation and acute heart failure. She was ruled out for COVID-19. She was found to have some community-acquired pneumonia, was placed on antibiotic therapy for that. She was originally monitored in the ICU and was on BiPAP, but was quickly weaned to nasal cannula. Cardiology saw her and eventually put her on a heparin drip due to the fact that she was not therapeutic with her INR and Coumadin regimen. He also felt that the elevated troponin that she had was more due to cardiac strain secondary to the heart failure. Dr. Pascal with Pulmonology followed her as well. She was kept on oxygen and monitored closely. It was also thought that possibly she had spurious elevation of troponin versus a very limited non- ST-elevation myocardial infarction. Her chest x-ray continued to improve on a daily basis. Today the COVID-19 test came back negative. DISCHARGE VITAL SIGNS: Temperature 97.7 degrees, heart rate 95, respiratory rate 21, blood pressure 153/51, O2 saturation 95% on room air. DISCHARGE LABORATORY DATA: White blood cells 6000, hemoglobin 9, hematocrit 31, platelet count 266,000. INR is 1.27, PTT was 110. Sodium 136, potassium 3.2, BUN 6, creatinine 0.7, glucose 102, calcium 9.5. Microbiology: Urine culture negative. Blood culture negative. DIAGNOSTIC DATA: Chest x-ray on admission: Cardiomegaly, pulmonary edema. Echocardiogram: EF 55% to 60%; pulmonary pressure 57 mmHg; preserved left ventricular diastolic dysfunction; there is a suggestion of impaired left ventricular relaxation, however. Chest CT: Multilobar pneumonia that is worse in the right lower lobe; chronic pleural thickening and fibrosis of the periphery of the left lower lung zone; trace loculated pleural fluid collection on the left and trace non-loculated pleural fluid on the right. Chest x-ray on 05/16/2019: Stable chest. EKG: Sinus rhythm, rate 94, QTc is 462. DISCHARGE MEDICATIONS: 1. Protonix 40 mg p.o. twice daily. 2. Lovenox 70 mg subcutaneously every 12 hours for 6 days, with Coumadin 5 mg p.o. nightly, starting tomorrow. 3. Baclofen 10 mg p.o. every 12 hours p.r.n. 4. Levaquin 500 mg p.o. daily for 7 days. 5. Imdur 30 mg p.o. twice daily. 6. Synthroid 50 mcg p.o. daily. 7. Vitamin C once daily. 8. Metoprolol succinate 25 mg p.o. daily. 9. Metolazone 2.5 mg p.o. Monday, Monday, Monday 30 minutes before Lasix. 10. Lasix 80 mg p.o. twice a day. 11. Potassium chloride 20 mEq p.o. t.i.d. 12. [place] 10 one tablet p.o. q.6 hours p.r.n. 13. Neurontin 300 mg p.o. t.i.d. 14. Cymbalta 60 mg p.o. daily. 15. Vitamin D3/calcium 600 one tablet p.o. daily. 16. Losartan potassium 50 mg p.o. nightly. 17. Trazodone 150 mg p.o. nightly. PHYSICIAN FOLLOWUP: Dr. Amos, Dr. Pascal, Dr. Amaya. DISCHARGE ACTIVITY: As tolerated. DISCHARGE DIET: Regular. DISCHARGE INSTRUCTIONS: Notify the physician for fever of 101 degrees or above, shortness of breath, chest pain, worsening symptoms or other concerns. If her condition changes, contact physician and/or return to the emergency department. Changes may include, but are not limited to, shortness of breath, increased fatigue, excessive bleeding, unexplained weight loss or gain, unmanageable pain or signs or symptoms of infection. DISCHARGE DISPOSITION: She will be going home. Dictated by HYACINTH Medrano for Leeroy Waterman MD Addendum: Patient seen and examined by myself. Agree with HYACINTH note. It reflects my assessment and plan. Patient is being discharged in stable condition. Will be seen by Dr. Amos in three weeks. cc: HYACINTH Medrano MD [facility]
== END 2019-05-18 14:33 | disposition home or self-care (01) | DRG 871 ==
LOC: SUPCPDRO → ED 08:38 → ICU 13:17 → SUATTDRO 13:17 → 4N 05-15 16:24
PROVIDERS: ATTEND Internal Medicine